=== PATIENT | female | born 1970 | race Caucasian/White ===

== ENCOUNTER 2018-05-08 14:05 | Inpatient (IN) | payer SELFPAY ==
[~2018-05-08] VITALS: Ht 157.5 cm; Wt 97.5 kg
[~2018-05-08 14:05] MED LIST: LISI-334 PO; OXYC1TAB7 PO
[2018-05-08] MEDS ORDERED: NITROGLYCERIN OINT 1 GM PACKET. TP ONE (14:30)
[2018-05-08] MEDS ORDERED: LABETALOL 20 MG/4 ML DISP.SYRIN. IVP ONE (14:30)
[2018-05-08] MEDS ORDERED: MORPHINE SULFATE 4 MG/ML VIAL. IV/SQ PRN (14:30)
--- NOTE | 2018-05-08 14:34 | PHYS DOC ---
Past Medical History Past Medical History: Hypertension, Hepatitis, Other Additional Past Medical Histor: HEP C, OCD,ADHD, ENCEPHALITIS, PLEURISEY Past Surgical History: Smoking: Cigarettes, 1 Pack Per Day Alcohol Use: None Drug Use: Marijuana Adult General Chief Complaint Chief Complaint: multiple medical complaints HPI HPI Patient is a 48-year-old female presents to the emergency department for evaluation. She states that for the past 3 days she has had pain all over her body, both arthralgias and myalgias. She admits to having some anterior chest discomfort which began yesterday, and has been persistent. The pain is described as an achy pain in the left side of her chest and is worse with deep breathing. She also reports some generalized abdominal pain worsen her upper abdomen. She states she has had a few episodes of vomiting and has not had a bowel movement in a few days. She has not had any bloody emesis, or bloody stools. She does feel somewhat more short of breath and baseline. She has not had any fevers or chills. She has a history of hypertension, but states that she does not have a primary care provider, does not take any medications. Other than the stated above, there are no alleviating or exacerbating factors to her symptoms. Review of Systems Review of Systems Constitutional: Denies fever or chills [] Eyes: Denies change in visual acuity, redness, or eye pain [] HENT: Denies nasal congestion or sore throat [] Respiratory: Denies cough or shortness of breath [] Cardiovascular: No additional information not addressed in HPI [] GI: Denies bloody stools or diarrhea [] : Denies dysuria or hematuria [] Musculoskeletal: Reports diffuse myalgias and arthralgias[] Integument: Denies rash or skin lesions [] Neurologic: Denies headache, focal weakness or sensory changes [] Endocrine: Denies polyuria or polydipsia [] All other systems were reviewed and found to be within normal limits, except as documented in this note. Current Medications Current Medications Current Medications Medications (Trade) Dose Ordered Sig/Curtis Start Time Stop Time Status Last Admin Dose Admin Info (CONTRAST GIVEN -- Rx MONITORING) 1 each PRN DAILY PRN 05/08/18 14:45 05/10/18 14:44 Iohexol (Omnipaque 300 Mg/ml) 75 ml 1X ONCE 05/08/18 14:45 05/08/18 14:46 DC 05/08/18 16:00 75 ML Labetalol HCl (Normodyne Iv Push) 20 mg 1X ONCE 05/08/18 14:30 05/08/18 14:31 DC 05/08/18 14:57 20 MG Morphine Sulfate (Morphine Sulfate) 4 mg PRN Q15MIN PRN 05/08/18 14:30 05/09/18 14:29 Nitroglycerin (Nitro-Bid Oint) 1 inch 1X ONCE 05/08/18 14:30 05/08/18 14:31 DC 05/08/18 14:56 1 INCH Allergies Allergies Allergies Coded Allergies Type Severity Reaction Last Updated Verified No Known Drug Allergies 06/14/17 No Physical Exam Physical Exam PHYSICAL EXAM: CONSTITUTIONAL: Well developed, well nourished HEAD: normocephalic, atraumatic EENT: PERRL, EOMI. Conjunctivae normal color, sclerae non-icteric; moist mucous membranes. NECK: Supple, non-tender; no meningismus. LUNGS: Lungs CTA, breathing even and unlabored. Normal air movement. HEART: Regular rate and rhythm, no murmur CHEST: No deformity; there is diffuse tenderness to palpation to the anterior chest wall. ABDOMEN: The abdomen is soft, mildly distended. Normal bowel sounds are present. There is diffuse tenderness to palpation to the entire abdomen, without focal tenderness, rebound, or guarding. no masses or bruits. EXTREM: Normal ROM; no deformity, no calf tenderness. Normal pulses palpable in all extremities. There is no pedal edema. SKIN: No rash; no diaphoresis NEURO: Alert; normal speech and cognition; CN's grossly intact; strength grossly intact without focal deficit. BACK: No CVA TTP. Current Patient Data Vital Signs Vital Signs Date Time Temp Pulse Resp B/P (MAP) Pulse Ox O2 Delivery O2 Flow Rate FiO2 05/08/18 14:57 112 216/95 05/08/18 14:11 99.6 20 98 Room Air 99.6 Lab Values Laboratory Tests Test 05/08/18 14:38 05/08/18 15:07 05/08/18 15:36 White Blood Count 7.2 x10^3/uL (4.0-11.0) Red Blood Count 4.29 x10^6/uL (3.50-5.40) Hemoglobin 11.0 g/dL (12.0-15.5) L Hematocrit 33.3 % (36.0-47.0) L Mean Corpuscular Volume 78 fL (79-100) L Mean Corpuscular Hemoglobin 26 pg (25-35) Mean Corpuscular Hemoglobin Concent 33 g/dL (31-37) Red Cell Distribution Width 16.1 % (11.5-14.5) H Platelet Count 202 x10^3/uL (140-400) Neutrophils (%) (Auto) 74 % (31-73) H Lymphocytes (%) (Auto) 17 % (24-48) L Monocytes (%) (Auto) 8 % (0-9) Eosinophils (%) (Auto) 1 % (0-3) Basophils (%) (Auto) 0 % (0-3) Neutrophils # (Auto) 5.3 x10^3uL (1.8-7.7) Lymphocytes # (Auto) 1.2 x10^3/uL (1.0-4.8) Monocytes # (Auto) 0.6 x10^3/uL (0.0-1.1) Eosinophils # (Auto) 0.1 x10^3/uL (0.0-0.7) Basophils # (Auto) 0.0 x10^3/uL (0.0-0.2) Sodium Level 136 mmol/L (136-145) Potassium Level 3.7 mmol/L (3.5-5.1) Chloride Level 98 mmol/L (98-107) Carbon Dioxide Level 28 mmol/L (21-32) Anion Gap 10 (6-14) Blood Urea Nitrogen 7 mg/dL (7-20) Creatinine 0.9 mg/dL (0.6-1.0) Estimated GFR (Cockcroft-Gault) 66.5 BUN/Creatinine Ratio 8 (6-20) Glucose Level 216 mg/dL (70-99) H Lactic Acid Level 2.1 mmol/L (0.4-2.0) H Calcium Level 8.7 mg/dL (8.5-10.1) Magnesium Level 1.7 mg/dL (1.8-2.4) L Total Bilirubin 0.5 mg/dL (0.2-1.0) Aspartate Amino Transferase (AST) 60 U/L (15-37) H Alanine Aminotransferase (ALT) 86 U/L (14-59) H Alkaline Phosphatase 115 U/L (46-116) Creatine Kinase 38 U/L (26-192) Creatine Kinase MB (Mass) 0.9 ng/mL (0.0-3.6) Creatine Kinase MB Relative Index 2.4 % (0-4) Troponin I Quantitative < 0.017 ng/mL (0.000-0.055) XT-Mwj-W-Type Natriuretic Peptide 187 pg/mL (0-124) H Total Protein 8.1 g/dL (6.4-8.2) Albumin 3.2 g/dL (3.4-5.0) L Albumin/Globulin Ratio 0.7 (1.0-1.7) L Lipase 138 U/L (73-393) Thyroid Stimulating Hormone (TSH) 1.349 uIU/mL (0.358-3.74) Free Thyroxine 1.04 ng/dL (0.76-1.46) Influenza Type A Antigen Negative (NEGATIVE) Influenza Type B Antigen Negative (NEGATIVE) Urine Collection Type Unknown Urine Color Yellow Urine Clarity Cloudy Urine pH 7.0 Urine Specific [place] >=1.030 Urine Protein Negative mg/dL (NEG-TRACE) Urine Glucose (UA) >=1000 mg/dL (NEG) Urine Ketones (Stick) Negative mg/dL (NEG) Urine Blood Negative (NEG) Urine Nitrite Negative (NEG) Urine Bilirubin Negative (NEG) Urine Urobilinogen Dipstick 1.0 mg/dL (0.2 mg/dL) Urine Leukocyte Esterase Negative (NEG) Urine RBC 0 /HPF (0-2) Urine WBC 0 /HPF (0-4) Urine Squamous Epithelial Cells Mod /LPF Urine Bacteria 0 /HPF (0-FEW) Urine Mucus Slight /LPF POC Urine HCG, Qualitative Hcg negative (Negative) Laboratory Tests 05/08/18 14:38 Laboratory Tests 05/08/18 14:38 EKG EKG [Sinus tachycardia rate of 117 beats for minute, normal axis, incomplete right bundle-branch block with otherwise normal intervals. There are no acute ischemic ST/T changes.] Radiology/Procedures Radiology/Procedures [PROCEDURE: PORTABLE CHEST 1V PORTABLE CHEST 1V INDICATION: CHEST PAIN, NECK PAIN, ABD PAIN X 3 DAYS. HX HYPERTENSION. COMPARISON: Chest radiograph dated 06/14/2017 FINDINGS: Low lung volume. Bibasilar heterogenous airspace opacities. Unchanged pulmonary vasculature. No pleural effusion or pneumothorax. The cardiomediastinal silhouette is normal. Mildly atherosclerotic thoracic aorta. No acute osseous abnormality. IMPRESSION: Bibasilar heterogenous airspace opacities could relate to atelectasis. Underlying infectious process or asymmetric edema would be difficult to exclude. ] Course & Med Decision Making Course & Med Decision Making Pertinent Labs and Imaging studies reviewed. (See chart for details) [4:10 PM:] The patient's condition remained stable. BP currently 172/88. I discussed the case with the hospitalist, who will admit the patient for further evaluation and treatment. CT imaging reports chest, angiogram due to pleuritic pain, as well as abdomen due to the diffuse abdominal tenderness and pain, are currently pending. Dragon Disclaimer Dragon Disclaimer This electronic medical record was generated, in whole or in part, using a voice recognition dictation system. Departure Departure Impression: Primary Impression: Chest pain Additional Impressions: Abdominal pain Hypertensive urgency Disposition: ADMITTED INPATIENT Admitting Physician: Xie. Kinney Condition: STABLE Referrals: NO PCP (PCP) Problem Qualifiers DEVON MCBRIDE MD May 08, 2018 14:34
[2018-05-08] MEDS ORDERED: CONTRAST GIVEN. MC PRN (14:45)
[2018-05-08] MEDS ORDERED: IOHEXOL 300 MG/ML 100ML VIAL. IV ONE (14:45)
[2018-05-08 14:55] LABS: BASO % 0 % (0-3); EOS # 0.1 x10^3/uL (0.0-0.7); EOS % 1 % (0-3); HEMATOCRIT 33.3 % (36.0-47.0); LYMPH # 1.2 x10^3/uL (1.0-4.8); LYMPH % 17 % (24-48); MEAN CORPUSCULAR HEMOGLOBIN 26 pg (25-35); MEAN CORPUSCULAR HGB CONC 33 g/dL (31-37); MEAN CORPUSCULAR VOLUME 78 fL (79-100); MONO # 0.6 x10^3/uL (0.0-1.1); MONO % 8 % (0-9); NEUT # 5.3 x10^3uL (1.8-7.7); NEUT % 74 % (31-73); PLATELET COUNT 202 x10^3/uL (140-400); RED BLOOD COUNT 4.29 x10^6/uL (3.50-5.40); RED CELL DISTRIBUTION WIDTH 16.1 % (11.5-14.5); WHITE BLOOD COUNT 7.2 x10^3/uL (4.0-11.0)
--- NOTE | 2018-05-08 14:56 | RAD ---
PORTABLE CHEST 1V INDICATION: CHEST PAIN, NECK PAIN, ABD PAIN X 3 DAYS. HX HYPERTENSION. COMPARISON: Chest radiograph dated 06/14/2017 FINDINGS: Low lung volume. Bibasilar heterogenous airspace opacities. Unchanged pulmonary vasculature. No pleural effusion or pneumothorax. The cardiomediastinal silhouette is normal. Mildly atherosclerotic thoracic aorta. No acute osseous abnormality. IMPRESSION: Bibasilar heterogenous airspace opacities could relate to atelectasis. Underlying infectious process or asymmetric edema would be difficult to exclude. Electronically signed by: Alfredo Bacon MD (05/08/2018 2:53 PM) [facility]
[2018-05-08 15:00] LABS: CALCIUM 8.7 mg/dL (8.5-10.1); CREATININE 0.9 mg/dL (0.6-1.0); GFR 66.5; POTASSIUM 3.7 mmol/L (3.5-5.1)
[2018-05-08 15:06] LABS: ALBUMIN 3.2 g/dL (3.4-5.0); ALBUMIN/GLOBULIN RATIO 0.7 (1.0-1.7); INFLUENZA A PATIENT NEGATIVE (NEGATIVE); INFLUENZA B PATIENT NEGATIVE (NEGATIVE); MAGNESIUM 1.7 mg/dL (1.8-2.4); TOTAL BILIRUBIN 0.5 mg/dL (0.2-1.0); TOTAL PROTEIN 8.1 g/dL (6.4-8.2)
--- NOTE | 2018-05-08 15:06 | EKG ---
[facility] [address] [place] [address] Test Date: 2018-05-08 Test Time: 14:12:45 Pat Name: LINDSEY MARX Department: Room: Gender: F Health Tech: : [id number] Requested By: DEVON MCBRIDE Order Number: [id number] Reading MD: Tarun Marrufo MD Measurements Intervals [place] Rate: 117 P: 54 MS: 120 QRS: 48 QRSD: 82 T: 51 QT: 306 QTc: 431 Interpretive Statements SINUS TACHYCARDIA Electronically Signed On 05-09-2018 12:26:52 CDT by Tarun Marrufo MD
[2018-05-08 15:13] LABS: FREE T4 1.04 ng/dL (0.76-1.46); THYROID STIM HORMONE (TSH) 1.349 uIU/mL (0.358-3.74)
[2018-05-08 16:00] LABS: BILIRUBIN,URINE NEGATIVE (NEG); CLARITY,URINE CLOUDY; COLOR,URINE YELLOW; NITRITE,URINE NEGATIVE (NEG); PROTEIN,URINE NEGATIVE (NEG-TRACE)
[2018-05-08 16:08] LABS: SQUAMOUS EPITHELIAL CELL,UR MOD /LPF
[2018-05-08 16:09] LABS: BACTERIA,URINE 0 /HPF (0-FEW); RBC,URINE 0 /HPF (0-2); WBC,URINE 0 /HPF (0-4)
[2018-05-08] MEDS ORDERED: DOCUSATE SODIUM 100 MG CAPSULE. PO PRN (16:30)
[2018-05-08] MEDS ORDERED: LABETALOL 20 MG/4 ML DISP.SYRIN. IVP PRN (16:30)
[2018-05-08] MEDS ORDERED: ACETAMINOPHEN 325 MG TABLET. PO PRN (16:30)
[2018-05-08] MEDS ORDERED: ONDANSETRON PF 4 MG/2 ML VIAL. IV PRN (16:30)
--- NOTE | 2018-05-08 16:41 | PDOC1 ---
History and Physical Date of Admission Date of Admission 05/08/18 Identification/Chief Complaint Chief Complaint abd pain, headache, chest pain with deep breath Source Source: Chart review, Patient History of Present Illness History of Present Illness HPI HPI Patient is a 48-year-old female presents to the emergency department for evaluation of multiple complains, mainly for abd pain and headache. She has no insurance, no pcp, not taking meds. She said she has been feeling diffuse abd pain for 3ds, mainly on left side, constant, severe, with myalgias, with N/V 3 times , non bloody or grover. also has BM daily with intermittent constipation and blood in the stool sometimes for 1 year. said has possible hep C, not treated. She also has severe headache, with neck pain, headache is on the top head, tension, no vision or hearing change, noise and light not bothering her. hard to walk 2/2 abd pain. no numbness or tinglings. She has bl lower chest pain, with deep breath. + cough, subjective fever, with sweats, + smoking. LA 2.[address] pending. Pt was here last year, for HTN urgency, not taking meds now. also had pleurisy at that time. BP >200. Past Medical History Cardiovascular: HTN Past Surgical History Past Surgical History: Family History Family History: Hypertension Social History Smoke: 1 pack per day ALCOHOL: social Drugs: Other Current Problem List Problem List Problems Medical Problems: (1) Abdominal pain Status: Acute (2) Chest pain Status: Acute Current Medications Current Medications Current Medications Medications (Trade) Dose Ordered Sig/Curtis Start Time Stop Time Status Last Admin Dose Admin Info (CONTRAST GIVEN -- Rx MONITORING) 1 each PRN DAILY PRN 05/08/18 14:45 05/10/18 14:44 Iohexol (Omnipaque 300 Mg/ml) 75 ml 1X ONCE 05/08/18 14:45 05/08/18 14:46 DC 05/08/18 16:00 75 ML Labetalol HCl (Normodyne Iv Push) 20 mg 1X ONCE 05/08/18 14:30 05/08/18 14:31 DC 05/08/18 14:57 20 MG Morphine Sulfate (Morphine Sulfate) 4 mg PRN Q15MIN PRN 05/08/18 14:30 05/09/18 14:29 Nitroglycerin (Nitro-Bid Oint) 1 inch 1X ONCE 05/08/18 14:30 05/08/18 14:31 DC 05/08/18 14:56 1 INCH Allergies Allergies Allergies Coded Allergies Type Severity Reaction Last Updated Verified No Known Drug Allergies 06/14/17 No ROS Review of System CONSTITUTIONAL: No fever or chills EYES: No recent changes SKIN: No rash or itching CARDIOVASCULAR: No chest pain, syncope, palpitations, or edema RESPIRATORY: No SOB or cough GASTROINTESTINAL: No nausea, vomiting or abdominal pain NEUROLOGICAL: No headaches or weakness ENDOCRINE: No cold or heat intolerance GENITOURINARY: No urgency or frequency of urination MUSCULOSKELETAL: No back pain or joint pain LYMPHATICS: No enlarged lymph nodes PSYCHIATRIC: No anxiety or depression Physical Exam Physical Exam GEN.: Alert and oriented. in pain. HEENT: Head is normocephalic, atraumatic NECK: Supple. LUNGS: Clear to auscultation. HEART: RRR, S1, S2 present. Peripheral pulses intact ABDOMEN: Soft, Positive bowel sounds. diffuse abd moderate tenderness , mainly at RUQ, LUQ. no guarding. EXTREMITIES: Without any cyanosis. bl leg some superficial dilated veins. and bruise. NEUROLOGIC: Normal speech, normal tone PSYCHIATRIC: Normal affect, normal mood. SKIN: No ulcerations Vitals Vitals Vital Signs Date Time Temp Pulse Resp B/P (MAP) Pulse Ox O2 Delivery O2 Flow Rate FiO2 05/08/18 14:57 112 216/95 05/08/18 14:11 99.6 20 98 Room Air 99.6 Labs Labs Laboratory Tests Test 05/08/18 14:38 05/08/18 15:07 05/08/18 15:36 White Blood Count 7.2 x10^3/uL (4.0-11.0) Red Blood Count 4.29 x10^6/uL (3.50-5.40) Hemoglobin 11.0 g/dL (12.0-15.5) Hematocrit 33.3 % (36.0-47.0) Mean Corpuscular Volume 78 fL (79-100) Mean Corpuscular Hemoglobin 26 pg (25-35) Mean Corpuscular Hemoglobin Concent 33 g/dL (31-37) Red Cell Distribution Width 16.1 % (11.5-14.5) Platelet Count 202 x10^3/uL (140-400) Neutrophils (%) (Auto) 74 % (31-73) Lymphocytes (%) (Auto) 17 % (24-48) Monocytes (%) (Auto) 8 % (0-9) Eosinophils (%) (Auto) 1 % (0-3) Basophils (%) (Auto) 0 % (0-3) Neutrophils # (Auto) 5.3 x10^3uL (1.8-7.7) Lymphocytes # (Auto) 1.2 x10^3/uL (1.0-4.8) Monocytes # (Auto) 0.6 x10^3/uL (0.0-1.1) Eosinophils # (Auto) 0.1 x10^3/uL (0.0-0.7) Basophils # (Auto) 0.0 x10^3/uL (0.0-0.2) Sodium Level 136 mmol/L (136-145) Potassium Level 3.7 mmol/L (3.5-5.1) Chloride Level 98 mmol/L (98-107) Carbon Dioxide Level 28 mmol/L (21-32) Anion Gap 10 (6-14) Blood Urea Nitrogen 7 mg/dL (7-20) Creatinine 0.9 mg/dL (0.6-1.0) Estimated GFR (Cockcroft-Gault) 66.5 BUN/Creatinine Ratio 8 (6-20) Glucose Level 216 mg/dL (70-99) Lactic Acid Level 2.1 mmol/L (0.4-2.0) Calcium Level 8.7 mg/dL (8.5-10.1) Magnesium Level 1.7 mg/dL (1.8-2.4) Total Bilirubin 0.5 mg/dL (0.2-1.0) Aspartate Amino Transf (AST/SGOT) 60 U/L (15-37) Alanine Aminotransferase (ALT/SGPT) 86 U/L (14-59) Alkaline Phosphatase 115 U/L (46-116) Creatine Kinase 38 U/L (26-192) Creatine Kinase MB (Mass) 0.9 ng/mL (0.0-3.6) Creatine Kinase MB Relative Index 2.4 % (0-4) Troponin I Quantitative < 0.017 ng/mL (0.000-0.055) IS-Scz-W-Type Natriuretic Peptide 187 pg/mL (0-124) Total Protein 8.1 g/dL (6.4-8.2) Albumin 3.2 g/dL (3.4-5.0) Albumin/Globulin Ratio 0.7 (1.0-1.7) Lipase 138 U/L (73-393) Thyroid Stimulating Hormone (TSH) 1.349 uIU/mL (0.358-3.74) Free Thyroxine 1.04 ng/dL (0.76-1.46) Influenza Type A Antigen Negative (NEGATIVE) Influenza Type B Antigen Negative (NEGATIVE) Urine Collection Type Unknown Urine Color Yellow Urine Clarity Cloudy Urine pH 7.0 Urine Specific [place] >=1.030 Urine Protein Negative mg/dL (NEG-TRACE) Urine Glucose (UA) >=1000 mg/dL (NEG) Urine Ketones (Stick) Negative mg/dL (NEG) Urine Blood Negative (NEG) Urine Nitrite Negative (NEG) Urine Bilirubin Negative (NEG) Urine Urobilinogen Dipstick 1.0 mg/dL (0.2 mg/dL) Urine Leukocyte Esterase Negative (NEG) Urine RBC 0 /HPF (0-2) Urine WBC 0 /HPF (0-4) Urine Squamous Epithelial Cells Mod /LPF Urine Bacteria 0 /HPF (0-FEW) Urine Mucus Slight /LPF Bedside Urine HCG, Qualitative Hcg negative (Negative) Laboratory Tests Test 05/08/18 14:38 05/08/18 15:07 05/08/18 15:36 White Blood Count 7.2 x10^3/uL (4.0-11.0) Red Blood Count 4.29 x10^6/uL (3.50-5.40) Hemoglobin 11.0 g/dL (12.0-15.5) Hematocrit 33.3 % (36.0-47.0) Mean Corpuscular Volume 78 fL (79-100) Mean Corpuscular Hemoglobin 26 pg (25-35) Mean Corpuscular Hemoglobin Concent 33 g/dL (31-37) Red Cell Distribution Width 16.1 % (11.5-14.5) Platelet Count 202 x10^3/uL (140-400) Neutrophils (%) (Auto) 74 % (31-73) Lymphocytes (%) (Auto) 17 % (24-48) Monocytes (%) (Auto) 8 % (0-9) Eosinophils (%) (Auto) 1 % (0-3) Basophils (%) (Auto) 0 % (0-3) Neutrophils # (Auto) 5.3 x10^3uL (1.8-7.7) Lymphocytes # (Auto) 1.2 x10^3/uL (1.0-4.8) Monocytes # (Auto) 0.6 x10^3/uL (0.0-1.1) Eosinophils # (Auto) 0.1 x10^3/uL (0.0-0.7) Basophils # (Auto) 0.0 x10^3/uL (0.0-0.2) Sodium Level 136 mmol/L (136-145) Potassium Level 3.7 mmol/L (3.5-5.1) Chloride Level 98 mmol/L (98-107) Carbon Dioxide Level 28 mmol/L (21-32) Anion Gap 10 (6-14) Blood Urea Nitrogen 7 mg/dL (7-20) Creatinine 0.9 mg/dL (0.6-1.0) Estimated GFR (Cockcroft-Gault) 66.5 BUN/Creatinine Ratio 8 (6-20) Glucose Level 216 mg/dL (70-99) Lactic Acid Level 2.1 mmol/L (0.4-2.0) Calcium Level 8.7 mg/dL (8.5-10.1) Magnesium Level 1.7 mg/dL (1.8-2.4) Total Bilirubin 0.5 mg/dL (0.2-1.0) Aspartate Amino Transf (AST/SGOT) 60 U/L (15-37) Alanine Aminotransferase (ALT/SGPT) 86 U/L (14-59) Alkaline Phosphatase 115 U/L (46-116) Creatine Kinase 38 U/L (26-192) Creatine Kinase MB (Mass) 0.9 ng/mL (0.0-3.6) Creatine Kinase MB Relative Index 2.4 % (0-4) Troponin I Quantitative < 0.017 ng/mL (0.000-0.055) EF-Orm-G-Type Natriuretic Peptide 187 pg/mL (0-124) Total Protein 8.1 g/dL (6.4-8.2) Albumin 3.2 g/dL (3.4-5.0) Albumin/Globulin Ratio 0.7 (1.0-1.7) Lipase 138 U/L (73-393) Thyroid Stimulating Hormone (TSH) 1.349 uIU/mL (0.358-3.74) Free Thyroxine 1.04 ng/dL (0.76-1.46) Influenza Type A Antigen Negative (NEGATIVE) Influenza Type B Antigen Negative (NEGATIVE) Urine Collection Type Unknown Urine Color Yellow Urine Clarity Cloudy Urine pH 7.0 Urine Specific [place] >=1.030 Urine Protein Negative mg/dL (NEG-TRACE) Urine Glucose (UA) >=1000 mg/dL (NEG) Urine Ketones (Stick) Negative mg/dL (NEG) Urine Blood Negative (NEG) Urine Nitrite Negative (NEG) Urine Bilirubin Negative (NEG) Urine Urobilinogen Dipstick 1.0 mg/dL (0.2 mg/dL) Urine Leukocyte Esterase Negative (NEG) Urine RBC 0 /HPF (0-2) Urine WBC 0 /HPF (0-4) Urine Squamous Epithelial Cells Mod /LPF Urine Bacteria 0 /HPF (0-FEW) Urine Mucus Slight /LPF Bedside Urine HCG, Qualitative Hcg negative (Negative) VTE Prophylaxis Ordered VTE Prophylaxis Devices: Yes VTE Pharmacological Prophylaxi: Yes Assessment/Plan Assessment/Plan abd pain, not clear etiology yet, CT pending bl chest pain 2/2 pleurisy likely headache, 2/2 HTN urgency likely HTN urgency chronic bloody stool as per pt with mild anemia high LA h/o hep C wo treatemtn OCD ADHD H/O encephalitis tobaccoism h/o drug abuse with marijuana mild malnutrition plan: pulm, gi , card consult abd ct pending, Chest cta pending clear liquid diet for now dvt, gi ppx check drug tox, hepatitis panel, anemia panel check anemia panel nicotine patch prn duoneb, abluterol prn head ct FRANSISCO DAY MD May 08, 2018 16:41
[2018-05-08] MEDS ORDERED: MAGNESIUM SULFATE 2GM 50 ML IV ONE (16:45)
[2018-05-08] MEDS ORDERED: NICOTINE 21MG PATCH. TD PRN (16:45)
[2018-05-08] MEDS ORDERED: ALBUTEROL SULFATE 2.5 MG/3 ML NEBU. NEB PRN (16:45)
[2018-05-08 16:54] LABS: AMPHETAMINE/METHAMPHETAMINE POS (NEG); BARBITURATES NEG (NEG); BENZODIAZEPINES NEG (NEG); CANNABINOIDS NEG (NEG); COCAINE NEG (NEG); METHADONE NEG (NEG); OPIATES NEG (NEG); PHENCYCLIDINE NEG (NEG)
--- NOTE | 2018-05-08 16:58 | RAD ---
CTA CHEST, PE PROTOCOL, CT ABDOMEN AND PELVIS WITH CONTRAST Clinical Indication: Chest pain, shortness of air, abdominal pain COMPARISON: CT abdomen and pelvis dated 06/14/2017, chest radiograph dated 06/14/2017 TECHNIQUE: Multiple contiguous axial images were obtained throughout the chest, abdomen, and pelvis with the use of IV contrast. Chest images were obtained following PE protocol. Coronal and sagittal MIPS reconstructions were performed. Coronal and sagittal reconstructions of the abdomen and pelvis CT were also performed. 75 mL Omni 300 was administered. CTA Chest Findings: Limited evaluation of the distal pulmonary arterial system due to suboptimal distal contrast opacification. No evidence of central, lobar, or segmental pulmonary embolism. The thyroid is symmetric. Calcified mediastinal and right hilar lymph nodes related to remote granulomatous disease. There is no axillary, mediastinal, or hilar adenopathy. The thoracic aorta diameter is normal. The cardiac size is normal. There is no pericardial effusion. Right lower lobe linear opacities likely related to atelectasis or scarring. There is no suspicious pulmonary nodule. There is no focal consolidation. No pleural effusion is observed. There is no pneumothorax. Small tracheal diverticulum. The central airways are patent. CT Abdomen findings: The liver is enlarged measuring 19.2 cm. There again may be a microlobulated contour of the liver. The liver is otherwise normal. Contracted gallbladder. No radiopaque gallstone or pericholecystic fluid. The spleen is enlarged measuring 14.5 cm. The pancreas is normal in appearance. The adrenal glands are normal in appearance. The kidneys are unremarkable. There is no significant mesenteric or retroperitoneal adenopathy identified. There is no evidence of free intraperitoneal fluid or pneumoperitoneum. Mild colonic diverticulosis without evidence of diverticulitis. Visualized portions of the bowel are otherwise grossly unremarkable. Normal appendix. Mild atherosclerosis of the abdominal aorta and its branches. CT Pelvis findings: The bladder is underdistended limiting evaluation for wall thickening. Fluid within the endometrial canal. 2.7 x 2.4 cm left ovarian cyst. There is no significant pelvic ascites. No significant iliac or inguinal adenopathy is identified. No acute osseous abnormality. Mild multilevel degenerative changes of the visualized spine. IMPRESSION: 1. Limited evaluation of the distal pulmonary arterial system due to suboptimal distal contrast opacification. No evidence of central, lobar, or segmental pulmonary embolism. 2. No acute intrathoracic, intra-abdominal, or intrapelvic process identified. 3. Hepatosplenomegaly. Possible microlobular contour of the liver which can be seen with cirrhosis, similar to prior exam. 4. Fluid within the endometrial canal and 2.7 x 2.4 cm left ovarian cyst are most likely physiologic given patient's age. PQRS Compliance Statement: One or more of the following individualized dose reduction techniques were utilized for this examination: 1. Automated exposure control 2. Adjustment of the mA and/or kV according to patient size 3. Use of iterative reconstruction technique Electronically signed by: Alfredo Bacon MD (05/08/2018 4:55 PM) [facility]
[2018-05-08] MEDS: IV NORMAL SALINE 1000ML BAG 1,000 ML IV SCH (17:05)
--- NOTE | 2018-05-08 17:59 | RAD ---
CT HEAD WO CONTRAST Date: 05/08/2018 4:41 PM Clinical Indication: HEADACHE Comparison: CT head dated 06/14/2017. Technique: 5 mm axial tomographic images were obtained of the head without contrast. These were viewed on brain and bone windows. CT HEAD FINDINGS: The brain parenchyma is normal in attenuation. No intra- or extra-axial mass or fluid collection. No acute hemorrhage. The ventricles are normal in size, shape, and morphology. The elder-white matter junction is normal. The basilar cisterns are patent. Small bilateral maxillary sinus mucus retention cysts. The nasal septum is deviated to the right. The orbits are normal. The globes are intact. The mastoid air cells are clear. No aggressive osseous lesion or fracture. Impression: No acute intracranial process. PQRS Compliance Statement: One or more of the following individualized dose reduction techniques were utilized for this examination: 1. Automated exposure control 2. Adjustment of the mA and/or kV according to patient size 3. Use of iterative reconstruction technique Electronically signed by: Alfredo Bacon MD (05/08/2018 5:55 PM) [facility]
[2018-05-08] MEDS: NICOTINE 21MG PATCH. TD SCH (18:30)
[2018-05-08 19:00] VITALS: BP 162/87
[2018-05-08] MEDS: IPRATRPIUM/ALBUTEROL 0.5/2.5MG 3 ML NEBU. NEB SCH (19:55)
[2018-05-08] MEDS: amLODIPine BESYLATE 10 MG TABLET PO SCH (21:03)
[2018-05-08] MEDS: LISINOPRIL 20 MG TABLET PO SCH (21:04)
[2018-05-08] MEDS: ENOXAPARIN 40 MG/0.4 ML SYRINGE. SQ SCH (21:12)
[2018-05-08 23:00] VITALS: BP 160/93
[2018-05-08] MEDS: traMADol 50 MG TABLET PO PRN (23:37)
[2018-05-09] MEDS: MORPHINE SULFATE 2 MG/ML VIAL. IV PRN ×2 (01:33→19:36)
[2018-05-09 03:00] VITALS: BP 162/84
[2018-05-09] MEDS: IV NORMAL SALINE 1000ML BAG 1,000 ML IV SCH ×3 (03:33→22:49)
[2018-05-09] MEDS: fentaNYL PF VIAL 100 MCG/2 ML VIAL IV PRN ×9 (03:33→22:42)
[2018-05-09 03:57] LABS: BASO # 0.1 x10^3/uL (0.0-0.2); BASO % 1 % (0-3); EOS # 0.1 x10^3/uL (0.0-0.7); EOS % 1 % (0-3); HEMATOCRIT 34.5 % (36.0-47.0); HEMOGLOBIN 11.3 g/dL (12.0-15.5); LYMPH # 1.6 x10^3/uL (1.0-4.8); LYMPH % 17 % (24-48); MEAN CORPUSCULAR HEMOGLOBIN 26 pg (25-35); MEAN CORPUSCULAR HGB CONC 33 g/dL (31-37); MEAN CORPUSCULAR VOLUME 78 fL (79-100); MONO % 10 % (0-9); NEUT % 71 % (31-73); PLATELET COUNT 227 x10^3/uL (140-400); RED BLOOD COUNT 4.42 x10^6/uL (3.50-5.40); RED CELL DISTRIBUTION WIDTH 16.8 % (11.5-14.5); WHITE BLOOD COUNT 9.8 x10^3/uL (4.0-11.0)
[2018-05-09 04:09] LABS: CALCIUM 8.4 mg/dL (8.5-10.1); CREATININE 0.8 mg/dL (0.6-1.0); GFR 76.2; POTASSIUM 4.2 mmol/L (3.5-5.1)
[2018-05-09 07:00] VITALS: BP 135/73
[2018-05-09] MEDS: IPRATRPIUM/ALBUTEROL 0.5/2.5MG 3 ML NEBU. NEB SCH ×4 (07:15→19:33)
[2018-05-09] MEDS: PANTOPRAZOLE 40 MG TABLET.DR. PO SCH (07:36)
[2018-05-09] MEDS: amLODIPine BESYLATE 10 MG TABLET PO SCH (09:10)
[2018-05-09] MEDS: LISINOPRIL 20 MG TABLET PO SCH (09:10)
[2018-05-09] MEDS: NICOTINE 21MG PATCH. TD SCH (09:11)
--- NOTE | 2018-05-09 10:17 | PDOC2 ---
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 Douglas SOURCE Source: Chart review, Patient HISTORY OF PRESENT ILLNESS HISTORY OF PRESENT ILLNESS This is a 48 yo female who presented with complaints of abdominal pain. Presented for the last 3 days. Progressively worsening. Radiating to her right chest. C/o whole body aches. Chest pain describes as sharp. Worsened with deep breath. No associated SOA, dizziness, diaphoresis, or palpitations. Have had some mild nausea/vomiting over the last couple of days. Has a history of hypertension. Unfortunately, patient is uninsured and has limited financial means. Was previous on antiHTN therapy, but ran out and has not been seen since. Is presently residing with friend. Of note, is current smoker and UDS + for methamphetamines. PAST MEDICAL HISTORY Cardiovascular: HTN Pulmonary: No pertinent hx GI: GERD Heme/Onc: No pertinent hx Hepatobiliary: No pertinent hx Psych: Anxiety, Depression Musculoskeletal: Osteoarthritis Rheumatologic: No pertinent hx Infectious disease: No pertinent hx ENT: No pertinent hx Renal/: No pertinent hx Endocrine: No pertinent hx Dermatology: No pertinent hx PAST SURGICAL HISTORY Past Surgical History: No pertinent history FAMILY HISTORY Family History: Diabetes, Hypertension SOCIAL HISTORY Smoke: 1 pack per day ALCOHOL: none Drugs: Marijuana, Crystal meth Lives: Friends CURRENT MEDICATIONS CURRENT MEDICATIONS Current Medications Medications (Trade) Dose Ordered Sig/Curtis Route PRN Reason Start Time Stop Time Status Last Admin Dose Admin Morphine Sulfate (Morphine Sulfate) 4 mg PRN Q15MIN PRN IV/SQ PAIN GREATER THAN 3/10 05/08/18 14:30 05/09/18 14:29 05/08/18 17:11 Labetalol HCl (Normodyne Iv Push) 20 mg 1X ONCE IVP 05/08/18 14:30 05/08/18 14:31 DC 05/08/18 14:57 Nitroglycerin (Nitro-Bid Oint) 1 inch 1X ONCE TP 05/08/18 14:30 05/08/18 14:31 DC 05/08/18 14:56 Iohexol (Omnipaque 300 Mg/ml) 75 ml 1X ONCE IV 05/08/18 14:45 05/08/18 14:46 DC 05/08/18 16:00 Morphine Sulfate (Morphine Sulfate) 2 mg PRN Q2HR PRN IV MODERATE TO SEVERE PAIN 05/08/18 16:30 05/09/18 01:33 Tramadol HCl (Ultram) 50 mg PRN Q6HRS PRN PO MILD TO MODERATE PAIN 05/08/18 16:30 05/08/18 23:37 Lisinopril (Prinivil) 40 mg DAILY PO 05/08/18 17:00 05/09/18 09:10 Amlodipine Besylate (Norvasc) 10 mg DAILY PO 05/08/18 17:00 05/09/18 09:10 Sodium Chloride 1,000 ml @ 100 mls/hr Q10H IV 05/08/18 16:30 05/09/18 03:33 Magnesium Sulfate 50 ml @ 25 mls/hr 1X ONCE IV 05/08/18 16:45 05/08/18 18:44 DC 05/08/18 21:05 Pantoprazole Sodium (Protonix) 40 mg DAILYAC PO 05/09/18 07:30 05/09/18 07:36 Enoxaparin Sodium (Lovenox 40mg Syringe) 40 mg Q24H SQ 05/08/18 21:00 05/08/18 21:12 Albuterol/ Ipratropium (Duoneb) 3 ml RTQID NEB 05/08/18 16:30 05/09/18 07:15 Guaifenesin (Mucinex) 600 mg BID PO 05/08/18 21:00 05/09/18 09:09 Nicotine (Nicoderm Cq 21mg) 1 patch DAILY TD 05/08/18 18:30 05/09/18 09:11 Fentanyl Citrate (Fentanyl 2ml Vial) 50 mcg PRN Q2HR PRN IV PAIN 05/09/18 02:30 05/09/18 07:41 ALLERGIES ALLERGIES: Coded Allergies: No Known Drug Allergies (Unverified , 06/14/17) ROS Review of System 14 point ROS conducted with pertinent positives noted above in HPI. PHYSICAL EXAM General: Alert, Oriented X3, Cooperative, mild distress HEENT: Atraumatic, Mucous membr. moist/pink Lungs: Clear to auscultation, Normal air movement Heart: Regular rate, Normal S1, Normal S2, Other (2/6 systolic murmur ) Abdomen: Other (distended. tenderness upon palpation) Extremities: No edema, Normal pulses Skin: No significant lesion Neuro: Normal speech, Sensation intact Psych/Mental Status: Mental status NL, Mood NL MUSCULOSKELETAL: Osteoarthritic changes both hands VITALS VITALS Vital Signs Date Time Temp Pulse Resp B/P (MAP) Pulse Ox O2 Delivery O2 Flow Rate FiO2 05/09/18 09:10 91 135/73 05/09/18 08:11 18 Room Air 05/09/18 07:15 92 05/09/18 03:00 98.7 98.7 LABS Lab: Laboratory Tests Test 05/08/18 14:38 05/08/18 15:07 05/08/18 15:36 05/08/18 22:00 White Blood Count 7.2 x10^3/uL (4.0-11.0) Red Blood Count 4.29 x10^6/uL (3.50-5.40) Hemoglobin 11.0 g/dL (12.0-15.5) Hematocrit 33.3 % (36.0-47.0) Mean Corpuscular Volume 78 fL (79-100) Mean Corpuscular Hemoglobin 26 pg (25-35) Mean Corpuscular Hemoglobin Concent 33 g/dL (31-37) Red Cell Distribution Width 16.1 % (11.5-14.5) Platelet Count 202 x10^3/uL (140-400) Neutrophils (%) (Auto) 74 % (31-73) Lymphocytes (%) (Auto) 17 % (24-48) Monocytes (%) (Auto) 8 % (0-9) Eosinophils (%) (Auto) 1 % (0-3) Basophils (%) (Auto) 0 % (0-3) Neutrophils # (Auto) 5.3 x10^3uL (1.8-7.7) Lymphocytes # (Auto) 1.2 x10^3/uL (1.0-4.8) Monocytes # (Auto) 0.6 x10^3/uL (0.0-1.1) Eosinophils # (Auto) 0.1 x10^3/uL (0.0-0.7) Basophils # (Auto) 0.0 x10^3/uL (0.0-0.2) Sodium Level 136 mmol/L (136-145) Potassium Level 3.7 mmol/L (3.5-5.1) Chloride Level 98 mmol/L (98-107) Carbon Dioxide Level 28 mmol/L (21-32) Anion Gap 10 (6-14) Blood Urea Nitrogen 7 mg/dL (7-20) Creatinine 0.9 mg/dL (0.6-1.0) Estimated GFR (Cockcroft-Gault) 66.5 BUN/Creatinine Ratio 8 (6-20) Glucose Level 216 mg/dL (70-99) Lactic Acid Level 2.1 mmol/L (0.4-2.0) Calcium Level 8.7 mg/dL (8.5-10.1) Magnesium Level 1.7 mg/dL (1.8-2.4) Total Bilirubin 0.5 mg/dL (0.2-1.0) Aspartate Amino Transf (AST/SGOT) 60 U/L (15-37) Alanine Aminotransferase (ALT/SGPT) 86 U/L (14-59) Alkaline Phosphatase 115 U/L (46-116) Creatine Kinase 38 U/L (26-192) Creatine Kinase MB (Mass) 0.9 ng/mL (0.0-3.6) Creatine Kinase MB Relative Index 2.4 % (0-4) Troponin I Quantitative < 0.017 ng/mL (0.000-0.055) < 0.017 ng/mL (0.000-0.055) [id number]-Ysv-[id number]-Type Natriuretic Peptide 187 pg/mL (0-124) Total Protein 8.1 g/dL (6.4-8.2) Albumin 3.2 g/dL (3.4-5.0) Albumin/Globulin Ratio 0.7 (1.0-1.7) Lipase 138 U/L (73-393) Thyroid Stimulating Hormone (TSH) 1.349 uIU/mL (0.358-3.74) Free Thyroxine 1.04 ng/dL (0.76-1.46) Influenza Type A Antigen Negative (NEGATIVE) Influenza Type B Antigen Negative (NEGATIVE) Urine Collection Type Unknown Urine Color Yellow Urine Clarity Cloudy Urine pH 7.0 Urine Specific [place] >=1.030 Urine Protein Negative mg/dL (NEG-TRACE) Urine Glucose (UA) >=1000 mg/dL (NEG) Urine Ketones (Stick) Negative mg/dL (NEG) Urine Blood Negative (NEG) Urine Nitrite Negative (NEG) Urine Bilirubin Negative (NEG) Urine Urobilinogen Dipstick 1.0 mg/dL (0.2 mg/dL) Urine Leukocyte Esterase Negative (NEG) Urine RBC 0 /HPF (0-2) Urine WBC 0 /HPF (0-4) Urine Squamous Epithelial Cells Mod /LPF Urine Bacteria 0 /HPF (0-FEW) Urine Mucus Slight /LPF Urine Opiates Screen Neg (NEG) Urine Methadone Screen Neg (NEG) Urine Barbiturates Neg (NEG) Urine Phencyclidine Screen Neg (NEG) Urine Amphetamine/Methamphetamine Pos (NEG) Urine Benzodiazepines Screen Neg (NEG) Urine Cocaine Screen Neg (NEG) Urine Cannabinoids Screen Neg (NEG) Urine Ethyl Alcohol Neg (NEG) Bedside Urine HCG, Qualitative Hcg negative (Negative) Test 05/09/18 03:20 White Blood Count 9.8 x10^3/uL (4.0-11.0) Red Blood Count 4.42 x10^6/uL (3.50-5.40) Hemoglobin 11.3 g/dL (12.0-15.5) Hematocrit 34.5 % (36.0-47.0) Mean Corpuscular Volume 78 fL (79-100) Mean Corpuscular Hemoglobin 26 pg (25-35) Mean Corpuscular Hemoglobin Concent 33 g/dL (31-37) Red Cell Distribution Width 16.8 % (11.5-14.5) Platelet Count 227 x10^3/uL (140-400) Neutrophils (%) (Auto) 71 % (31-73) Lymphocytes (%) (Auto) 17 % (24-48) Monocytes (%) (Auto) 10 % (0-9) Eosinophils (%) (Auto) 1 % (0-3) Basophils (%) (Auto) 1 % (0-3) Neutrophils # (Auto) 7.0 x10^3uL (1.8-7.7) Lymphocytes # (Auto) 1.6 x10^3/uL (1.0-4.8) Monocytes # (Auto) 1.0 x10^3/uL (0.0-1.1) Eosinophils # (Auto) 0.1 x10^3/uL (0.0-0.7) Basophils # (Auto) 0.1 x10^3/uL (0.0-0.2) Sodium Level 133 mmol/L (136-145) Potassium Level 4.2 mmol/L (3.5-5.1) Chloride Level 98 mmol/L (98-107) Carbon Dioxide Level 29 mmol/L (21-32) Anion Gap 6 (6-14) Blood Urea Nitrogen 5 mg/dL (7-20) Creatinine 0.8 mg/dL (0.6-1.0) Estimated GFR (Cockcroft-Gault) 76.2 Glucose Level 180 mg/dL (70-99) Calcium Level 8.4 mg/dL (8.5-10.1) Iron Level 45 ug/dL (50-170) Total Iron Binding Capacity 496 ug/dL (250-450) Iron Saturation 9 % (15-34) Ferritin 19 ng/mL (8-252) Vitamin B12 Level 631 pg/mL (247-911) ECHOCARDIOGRAM ECHOCARDIOGRAM <Conclusion> Left ventricle systolic function appears hyperdynamic. The Ejection Fraction is >70%. There is normal LV segmental wall motion. DATE: 06/17/1748 ASSESSMENT/PLAN ASSESSMENT/PLAN 1. Chest pain, atypical. Most probably pleuritic in nature as it is worsened with deep breathing 2. Malignant hypertension, POA. Much better controlled with addition of Lisinopril and Norvasc. 3. Abdominal pain/cirrhosis/ Hx of Hep C; mild transaminitis. as per GI 4. Depression/anxiety 5. Hypomagnesemia; replaced. 6. Tobaccoism 7. Substance abuse; UDS + meth Recommendations Check lipids Obtain echo to asses LV function/presence of WMA Add MG Discussed/encouraged cessation of tobacco and drugs. Supportive care. If echo WNL, may discharge from a CV standpoint. ALETA RICHTER MD 05/09/18 1534: CARDIAC CONSULT ASSESSMENT/PLAN ASSESSMENT/PLAN Patient seen and examined. Agree with CARD BOXER's assessment and plan. Chest pain with atypical features Myocardial infarction has been ruled out Blood pressure much better controlled since admission Check 2-D echo to assess LV function and rule out wall motion abnormalities We will consider ischemic workup as an outpatient Thank you for your consultation CARRINGTON GARDUNO APRN May 09, 2018 10:17 ALETA RICHTER MD May 09, 2018 15:34
--- NOTE | 2018-05-09 10:49 | PDOC2 ---
GI CONSULT Reason For Consult: Abdominal pain, cirrhosis, h/o hep C HPI: HPI: Pt is a 48 y/o female who presented to the ER with complaints of abdominal pain as well as neck/back pain and headache. She states her symptoms started 4 days ago. She reports severe abdominal pain, which was originally left-sided and is now more right-sided. She also reports generalized abdominal bloating and pressure. She reports associated nausea and vomiting as well, but has not vomited today. Her pain is worse with breathing and coughing. She has previously been seen for pleurisy and states that her current symptoms seem similar to this. She reports a h/o hepatitis C as well (former h/o IVDU), and states she has not had treatment for this. She denies a previous EGD or colonoscopy. She denies previous gallbladder or pancreas history. Pt with h/o HTN urgency in the past, and was also hypertensive in ER. PMH: PMH: HTN, Hep C, GERD, diiverticulosis, cirrhosis, encephalitis, depression/anxiety, FH: Family History: Cancer Social History: Smoke: 1 pack per day ALCOHOL: social Drugs: Other ROS: GEN: Denies fevers, chills, sweats HEENT: Denies blurred vision, sore throat CV: Denies chest pain RESP: Denies shortness of air, cough GI: Per HPI : Denies hematuria, dysuria ENDO: Denies weight changes NEURO: Denies confusion, dizziness MSK: Denies weakness, joint pain/swelling SKIN: Denies jaundice, pruritus Vitals: Vitals: Vital Signs Date Time Temp Pulse Resp B/P (MAP) Pulse Ox O2 Delivery O2 Flow Rate FiO2 05/09/18 10:29 20 Room Air 05/09/18 09:10 91 135/73 05/09/18 07:15 92 05/09/18 07:00 98.9 98.9 Labs: Labs: Laboratory Tests Test 05/08/18 14:38 05/08/18 15:07 05/08/18 15:36 05/08/18 22:00 White Blood Count 7.2 x10^3/uL (4.0-11.0) Red Blood Count 4.29 x10^6/uL (3.50-5.40) Hemoglobin 11.0 g/dL (12.0-15.5) Hematocrit 33.3 % (36.0-47.0) Mean Corpuscular Volume 78 fL (79-100) Mean Corpuscular Hemoglobin 26 pg (25-35) Mean Corpuscular Hemoglobin Concent 33 g/dL (31-37) Red Cell Distribution Width 16.1 % (11.5-14.5) Platelet Count 202 x10^3/uL (140-400) Neutrophils (%) (Auto) 74 % (31-73) Lymphocytes (%) (Auto) 17 % (24-48) Monocytes (%) (Auto) 8 % (0-9) Eosinophils (%) (Auto) 1 % (0-3) Basophils (%) (Auto) 0 % (0-3) Neutrophils # (Auto) 5.3 x10^3uL (1.8-7.7) Lymphocytes # (Auto) 1.2 x10^3/uL (1.0-4.8) Monocytes # (Auto) 0.6 x10^3/uL (0.0-1.1) Eosinophils # (Auto) 0.1 x10^3/uL (0.0-0.7) Basophils # (Auto) 0.0 x10^3/uL (0.0-0.2) Sodium Level 136 mmol/L (136-145) Potassium Level 3.7 mmol/L (3.5-5.1) Chloride Level 98 mmol/L (98-107) Carbon Dioxide Level 28 mmol/L (21-32) Anion Gap 10 (6-14) Blood Urea Nitrogen 7 mg/dL (7-20) Creatinine 0.9 mg/dL (0.6-1.0) Estimated GFR (Cockcroft-Gault) 66.5 BUN/Creatinine Ratio 8 (6-20) Glucose Level 216 mg/dL (70-99) Lactic Acid Level 2.1 mmol/L (0.4-2.0) Calcium Level 8.7 mg/dL (8.5-10.1) Magnesium Level 1.7 mg/dL (1.8-2.4) Total Bilirubin 0.5 mg/dL (0.2-1.0) Aspartate Amino Transf (AST/SGOT) 60 U/L (15-37) Alanine Aminotransferase (ALT/SGPT) 86 U/L (14-59) Alkaline Phosphatase 115 U/L (46-116) Creatine Kinase 38 U/L (26-192) Creatine Kinase MB (Mass) 0.9 ng/mL (0.0-3.6) Creatine Kinase MB Relative Index 2.4 % (0-4) Troponin I Quantitative < 0.017 ng/mL (0.000-0.055) < 0.017 ng/mL (0.000-0.055) PV-Naj-B-Type Natriuretic Peptide 187 pg/mL (0-124) Total Protein 8.1 g/dL (6.4-8.2) Albumin 3.2 g/dL (3.4-5.0) Albumin/Globulin Ratio 0.7 (1.0-1.7) Lipase 138 U/L (73-393) Thyroid Stimulating Hormone (TSH) 1.349 uIU/mL (0.358-3.74) Free Thyroxine 1.04 ng/dL (0.76-1.46) Influenza Type A Antigen Negative (NEGATIVE) Influenza Type B Antigen Negative (NEGATIVE) Urine Collection Type Unknown Urine Color Yellow Urine Clarity Cloudy Urine pH 7.0 Urine Specific [place] >=1.030 Urine Protein Negative mg/dL (NEG-TRACE) Urine Glucose (UA) >=1000 mg/dL (NEG) Urine Ketones (Stick) Negative mg/dL (NEG) Urine Blood Negative (NEG) Urine Nitrite Negative (NEG) Urine Bilirubin Negative (NEG) Urine Urobilinogen Dipstick 1.0 mg/dL (0.2 mg/dL) Urine Leukocyte Esterase Negative (NEG) Urine RBC 0 /HPF (0-2) Urine WBC 0 /HPF (0-4) Urine Squamous Epithelial Cells Mod /LPF Urine Bacteria 0 /HPF (0-FEW) Urine Mucus Slight /LPF Urine Opiates Screen Neg (NEG) Urine Methadone Screen Neg (NEG) Urine Barbiturates Neg (NEG) Urine Phencyclidine Screen Neg (NEG) Urine Amphetamine/Methamphetamine Pos (NEG) Urine Benzodiazepines Screen Neg (NEG) Urine Cocaine Screen Neg (NEG) Urine Cannabinoids Screen Neg (NEG) Urine Ethyl Alcohol Neg (NEG) Bedside Urine HCG, Qualitative Hcg negative (Negative) Test 05/09/18 03:20 White Blood Count 9.8 x10^3/uL (4.0-11.0) Red Blood Count 4.42 x10^6/uL (3.50-5.40) Hemoglobin 11.3 g/dL (12.0-15.5) Hematocrit 34.5 % (36.0-47.0) Mean Corpuscular Volume 78 fL (79-100) Mean Corpuscular Hemoglobin 26 pg (25-35) Mean Corpuscular Hemoglobin Concent 33 g/dL (31-37) Red Cell Distribution Width 16.8 % (11.5-14.5) Platelet Count 227 x10^3/uL (140-400) Neutrophils (%) (Auto) 71 % (31-73) Lymphocytes (%) (Auto) 17 % (24-48) Monocytes (%) (Auto) 10 % (0-9) Eosinophils (%) (Auto) 1 % (0-3) Basophils (%) (Auto) 1 % (0-3) Neutrophils # (Auto) 7.0 x10^3uL (1.8-7.7) Lymphocytes # (Auto) 1.6 x10^3/uL (1.0-4.8) Monocytes # (Auto) 1.0 x10^3/uL (0.0-1.1) Eosinophils # (Auto) 0.1 x10^3/uL (0.0-0.7) Basophils # (Auto) 0.1 x10^3/uL (0.0-0.2) Sodium Level 133 mmol/L (136-145) Potassium Level 4.2 mmol/L (3.5-5.1) Chloride Level 98 mmol/L (98-107) Carbon Dioxide Level 29 mmol/L (21-32) Anion Gap 6 (6-14) Blood Urea Nitrogen 5 mg/dL (7-20) Creatinine 0.8 mg/dL (0.6-1.0) Estimated GFR (Cockcroft-Gault) 76.2 Glucose Level 180 mg/dL (70-99) Calcium Level 8.4 mg/dL (8.5-10.1) Iron Level 45 ug/dL (50-170) Total Iron Binding Capacity 496 ug/dL (250-450) Iron Saturation 9 % (15-34) Ferritin 19 ng/mL (8-252) Vitamin B12 Level 631 pg/mL (247-911) Allergies: Coded Allergies: No Known Drug Allergies (Unverified , 06/14/17) Medications: Current Medications Medications (Trade) Dose Ordered Sig/Curtis Route PRN Reason Start Time Stop Time Status Last Admin Dose Admin Morphine Sulfate (Morphine Sulfate) 4 mg PRN Q15MIN PRN IV/SQ PAIN GREATER THAN 3/10 05/08/18 14:30 05/09/18 14:29 05/08/18 17:11 Labetalol HCl (Normodyne Iv Push) 20 mg 1X ONCE IVP 05/08/18 14:30 05/08/18 14:31 DC 05/08/18 14:57 Nitroglycerin (Nitro-Bid Oint) 1 inch 1X ONCE TP 05/08/18 14:30 05/08/18 14:31 DC 05/08/18 14:56 Iohexol (Omnipaque 300 Mg/ml) 75 ml 1X ONCE IV 05/08/18 14:45 05/08/18 14:46 DC 05/08/18 16:00 Morphine Sulfate (Morphine Sulfate) 2 mg PRN Q2HR PRN IV MODERATE TO SEVERE PAIN 05/08/18 16:30 05/09/18 01:33 Tramadol HCl (Ultram) 50 mg PRN Q6HRS PRN PO MILD TO MODERATE PAIN 05/08/18 16:30 05/08/18 23:37 Lisinopril (Prinivil) 40 mg DAILY PO 05/08/18 17:00 05/09/18 09:10 Amlodipine Besylate (Norvasc) 10 mg DAILY PO 05/08/18 17:00 05/09/18 09:10 Sodium Chloride 1,000 ml @ 100 mls/hr Q10H IV 05/08/18 16:30 05/09/18 03:33 Magnesium Sulfate 50 ml @ 25 mls/hr 1X ONCE IV 05/08/18 16:45 05/08/18 18:44 DC 05/08/18 21:05 Pantoprazole Sodium (Protonix) 40 mg DAILYAC PO 05/09/18 07:30 05/09/18 07:36 Enoxaparin Sodium (Lovenox 40mg Syringe) 40 mg Q24H SQ 05/08/18 21:00 05/08/18 21:12 Albuterol/ Ipratropium (Duoneb) 3 ml RTQID NEB 05/08/18 16:30 05/09/18 07:15 Guaifenesin (Mucinex) 600 mg BID PO 05/08/18 21:00 05/09/18 09:09 Nicotine (Nicoderm Cq 21mg) 1 patch DAILY TD 05/08/18 18:30 05/09/18 09:11 Fentanyl Citrate (Fentanyl 2ml Vial) 50 mcg PRN Q2HR PRN IV PAIN 05/09/18 02:30 05/09/18 10:29 Imaging: Imaging: Head CT 05/08/18 Impression: No acute intracranial process. CT A/P 05/08/18 IMPRESSION: 1. Limited evaluation of the distal pulmonary arterial system due to suboptimal distal contrast opacification. No evidence of central, lobar, or segmental pulmonary embolism. 2. No acute intrathoracic, intra-abdominal, or intrapelvic process identified. 3. Hepatosplenomegaly. Possible microlobular contour of the liver which can be seen with cirrhosis, similar to prior exam. 4. Fluid within the endometrial canal and 2.7 x 2.4 cm left ovarian cyst are most likely physiologic given patient's age. Chest x-ray 05/08/18 PE: GEN: Drowsy, falling asleep multiple times during exam today HEENT: Atraumatic, PERRLA LUNGS: CTAB HEART: RRR, no murmurs ABD: Generalized tenderness, more so in epigastric region EXTREMITY: No edema SKIN: No rashes, no jaundice NEURO/PSYCH: A & O 3 A/P: A/P: Abdominal pain -Was reportedly left-sided at first, now more right-sided -With generalized abdominal bloating and pressure -CT with evidence of cirrhosis, otherwise unrevealing -Unclear as to source of pain at this point- pt states pain seems similar to pain felt with pleurisy in past, pt also with cirrhosis Hep C w/ cirrhosis -IVDU -mild transaminitis -no previous h/o treatment -consider initiating treatment as an outpatient if pt willing -suggest EGD to be done at some point to screen for varices CRC -No previous colonoscopy, average risk HTN -per cardiology Will review case with Dr. Mullen. EDA MAR May 09, 2018 10:49
[2018-05-09 11:00] VITALS: BP_SYST 14; BP_SYST 144; BP_DIAS 80
--- NOTE | 2018-05-09 12:08 | CONS ---
DATE OF CONSULTATION: ATTENDING PHYSICIAN: Dr. Bal. REASON FOR CONSULTATION: Dyspnea. HISTORY OF PRESENT ILLNESS: This is a 48-year-old female who came into the hospital with multiple complaints including diffuse generalized pain. She has a mild cough. Had some nausea, vomiting. The patient has some occasional shortness of breath and a mild cough. She had some subjective fever with sweats at home. She has been a smoker since 30 years. She underwent imaging study including CTA chest, which was reviewed by me. There was no evidence of pulmonary embolism. There were no other pulmonary parenchymal abnormalities seen. There was some left ovarian cyst reported and possibility of cirrhosis. I have been asked to see her for further evaluation. PAST MEDICAL HISTORY: Significant for hypertension and ongoing tobaccoism. Suspect underlying COPD. PAST SURGICAL HISTORY: . FAMILY HISTORY: Hypertension. SOCIAL HISTORY: One pack per day for 30 years and still smokes. REVIEW OF SYSTEMS: A 12-point system obtained. Pertinent positives discussed in my history of present illness, otherwise noncontributory. All systems that were negative were reviewed as well. PHYSICAL EXAMINATION: VITAL SIGNS: Reviewed, pulse ox 92% on room air. NECK: Supple. LUNGS: With diminished breath sounds, no wheezing. CARDIOVASCULAR: Regular rate and rhythm. ABDOMEN: Soft. EXTREMITIES: With no pitting edema. LABORATORY DATA: Reviewed. White cell count 9.8, hemoglobin 11.3 and platelets are 227. Toxicology screen positive for meth and she does take marijuana as well, but it was negative. IMPRESSION: 1. Generalized diffuse pain, could be related to methamphetamine withdrawal. No evidence of any pulmonary embolism. 2. 30 years of tobaccoism and suspect underlying chronic obstructive pulmonary disease without exacerbation. 3. Substance abuse. 4. Ongoing tobaccoism. RECOMMENDATION: 1. From a pulmonary standpoint, continue nebulizer treatments. 2. DVT prophylaxis. 3. Smoking cessation counseling provided. 4. Counseling regarding substance abuse was provided as well. 5. No further recommendations at this point. FREDI MAHONEY MD DR: LISA/joy JOB#: [id number] / [id number]
--- NOTE | 2018-05-09 13:14 | PDOC ---
PROGRESS NOTES Chief Complaint Chief Complaint Abd pain Pleurisy likely Headache, 2/2 HTN urgency Chronic bloody stool as per pt with mild anemia h/o hep C OCD ADHD H/O encephalitis Tobaccoism h/o drug abuse with marijuana Mild malnutrition History of Present Illness History of Present Illness Pt seen and examined with RN Pt has a very unusual affect CO abd pain Vitals Vitals Vital Signs Date Time Temp Pulse Resp B/P (MAP) Pulse Ox O2 Delivery O2 Flow Rate FiO2 05/09/18 11:54 92 Room Air 05/09/18 11:00 98.2 88 18 14/80 (58) 98.2 Physical Exam General: Alert, mild distress Heart: Regular rate, Normal S1 Lungs: Clear Abdomen: Normal bowel sounds, Other (tender) Extremities: No clubbing, No cyanosis Skin: No rashes, No breakdown Labs LABS Laboratory Tests Test 05/08/18 14:38 05/08/18 15:07 05/08/18 15:36 05/08/18 22:00 White Blood Count 7.2 x10^3/uL (4.0-11.0) Red Blood Count 4.29 x10^6/uL (3.50-5.40) Hemoglobin 11.0 g/dL (12.0-15.5) Hematocrit 33.3 % (36.0-47.0) Mean Corpuscular Volume 78 fL (79-100) Mean Corpuscular Hemoglobin 26 pg (25-35) Mean Corpuscular Hemoglobin Concent 33 g/dL (31-37) Red Cell Distribution Width 16.1 % (11.5-14.5) Platelet Count 202 x10^3/uL (140-400) Neutrophils (%) (Auto) 74 % (31-73) Lymphocytes (%) (Auto) 17 % (24-48) Monocytes (%) (Auto) 8 % (0-9) Eosinophils (%) (Auto) 1 % (0-3) Basophils (%) (Auto) 0 % (0-3) Neutrophils # (Auto) 5.3 x10^3uL (1.8-7.7) Lymphocytes # (Auto) 1.2 x10^3/uL (1.0-4.8) Monocytes # (Auto) 0.6 x10^3/uL (0.0-1.1) Eosinophils # (Auto) 0.1 x10^3/uL (0.0-0.7) Basophils # (Auto) 0.0 x10^3/uL (0.0-0.2) Sodium Level 136 mmol/L (136-145) Potassium Level 3.7 mmol/L (3.5-5.1) Chloride Level 98 mmol/L (98-107) Carbon Dioxide Level 28 mmol/L (21-32) Anion Gap 10 (6-14) Blood Urea Nitrogen 7 mg/dL (7-20) Creatinine 0.9 mg/dL (0.6-1.0) Estimated GFR (Cockcroft-Gault) 66.5 BUN/Creatinine Ratio 8 (6-20) Glucose Level 216 mg/dL (70-99) Lactic Acid Level 2.1 mmol/L (0.4-2.0) Calcium Level 8.7 mg/dL (8.5-10.1) Magnesium Level 1.7 mg/dL (1.8-2.4) Total Bilirubin 0.5 mg/dL (0.2-1.0) Aspartate Amino Transf (AST/SGOT) 60 U/L (15-37) Alanine Aminotransferase (ALT/SGPT) 86 U/L (14-59) Alkaline Phosphatase 115 U/L (46-116) Creatine Kinase 38 U/L (26-192) Creatine Kinase MB (Mass) 0.9 ng/mL (0.0-3.6) Creatine Kinase MB Relative Index 2.4 % (0-4) Troponin I Quantitative < 0.017 ng/mL (0.000-0.055) < 0.017 ng/mL (0.000-0.055) LR-Crm-X-Type Natriuretic Peptide 187 pg/mL (0-124) Total Protein 8.1 g/dL (6.4-8.2) Albumin 3.2 g/dL (3.4-5.0) Albumin/Globulin Ratio 0.7 (1.0-1.7) Lipase 138 U/L (73-393) Thyroid Stimulating Hormone (TSH) 1.349 uIU/mL (0.358-3.74) Free Thyroxine 1.04 ng/dL (0.76-1.46) Influenza Type A Antigen Negative (NEGATIVE) Influenza Type B Antigen Negative (NEGATIVE) Urine Collection Type Unknown Urine Color Yellow Urine Clarity Cloudy Urine pH 7.0 Urine Specific [place] >=1.030 Urine Protein Negative mg/dL (NEG-TRACE) Urine Glucose (UA) >=1000 mg/dL (NEG) Urine Ketones (Stick) Negative mg/dL (NEG) Urine Blood Negative (NEG) Urine Nitrite Negative (NEG) Urine Bilirubin Negative (NEG) Urine Urobilinogen Dipstick 1.0 mg/dL (0.2 mg/dL) Urine Leukocyte Esterase Negative (NEG) Urine RBC 0 /HPF (0-2) Urine WBC 0 /HPF (0-4) Urine Squamous Epithelial Cells Mod /LPF Urine Bacteria 0 /HPF (0-FEW) Urine Mucus Slight /LPF Urine Opiates Screen Neg (NEG) Urine Methadone Screen Neg (NEG) Urine Barbiturates Neg (NEG) Urine Phencyclidine Screen Neg (NEG) Urine Amphetamine/Methamphetamine Pos (NEG) Urine Benzodiazepines Screen Neg (NEG) Urine Cocaine Screen Neg (NEG) Urine Cannabinoids Screen Neg (NEG) Urine Ethyl Alcohol Neg (NEG) Bedside Urine HCG, Qualitative Hcg negative (Negative) Test 05/09/18 03:20 White Blood Count 9.8 x10^3/uL (4.0-11.0) Red Blood Count 4.42 x10^6/uL (3.50-5.40) Hemoglobin 11.3 g/dL (12.0-15.5) Hematocrit 34.5 % (36.0-47.0) Mean Corpuscular Volume 78 fL (79-100) Mean Corpuscular Hemoglobin 26 pg (25-35) Mean Corpuscular Hemoglobin Concent 33 g/dL (31-37) Red Cell Distribution Width 16.8 % (11.5-14.5) Platelet Count 227 x10^3/uL (140-400) Neutrophils (%) (Auto) 71 % (31-73) Lymphocytes (%) (Auto) 17 % (24-48) Monocytes (%) (Auto) 10 % (0-9) Eosinophils (%) (Auto) 1 % (0-3) Basophils (%) (Auto) 1 % (0-3) Neutrophils # (Auto) 7.0 x10^3uL (1.8-7.7) Lymphocytes # (Auto) 1.6 x10^3/uL (1.0-4.8) Monocytes # (Auto) 1.0 x10^3/uL (0.0-1.1) Eosinophils # (Auto) 0.1 x10^3/uL (0.0-0.7) Basophils # (Auto) 0.1 x10^3/uL (0.0-0.2) Sodium Level 133 mmol/L (136-145) Potassium Level 4.2 mmol/L (3.5-5.1) Chloride Level 98 mmol/L (98-107) Carbon Dioxide Level 29 mmol/L (21-32) Anion Gap 6 (6-14) Blood Urea Nitrogen 5 mg/dL (7-20) Creatinine 0.8 mg/dL (0.6-1.0) Estimated GFR (Cockcroft-Gault) 76.2 Glucose Level 180 mg/dL (70-99) Calcium Level 8.4 mg/dL (8.5-10.1) Iron Level 45 ug/dL (50-170) Total Iron Binding Capacity 496 ug/dL (250-450) Iron Saturation 9 % (15-34) Ferritin 19 ng/mL (8-252) Vitamin B12 Level 631 pg/mL (247-911) Review of Systems Review of Systems co pain co nausea Assessment and Plan Assessmemt and Plan Problems Medical Problems: (1) Abdominal pain Status: Acute (2) Chest pain Status: Acute Abd pain Pleurisy likely Headache, 2/2 HTN urgency Chronic bloody stool as per pt with mild anemia h/o hep C OCD ADHD H/O encephalitis Tobaccoism h/o drug abuse with marijuana Mild malnutrition Plan: Abd U/S to r/o gallstones Labs Home meds pulm, gi , card consult clear liquid diet for now dvt, gi ppx Duoneb, abluterol prnAbd pain PRN narcotics Comment Review of Relevant I have reviewed the following items mary (where applicable) has been applied. Labs Laboratory Tests Test 05/08/18 14:38 05/08/18 15:07 05/08/18 15:36 05/08/18 22:00 White Blood Count 7.2 x10^3/uL (4.0-11.0) Red Blood Count 4.29 x10^6/uL (3.50-5.40) Hemoglobin 11.0 g/dL (12.0-15.5) Hematocrit 33.3 % (36.0-47.0) Mean Corpuscular Volume 78 fL (79-100) Mean Corpuscular Hemoglobin 26 pg (25-35) Mean Corpuscular Hemoglobin Concent 33 g/dL (31-37) Red Cell Distribution Width 16.1 % (11.5-14.5) Platelet Count 202 x10^3/uL (140-400) Neutrophils (%) (Auto) 74 % (31-73) Lymphocytes (%) (Auto) 17 % (24-48) Monocytes (%) (Auto) 8 % (0-9) Eosinophils (%) (Auto) 1 % (0-3) Basophils (%) (Auto) 0 % (0-3) Neutrophils # (Auto) 5.3 x10^3uL (1.8-7.7) Lymphocytes # (Auto) 1.2 x10^3/uL (1.0-4.8) Monocytes # (Auto) 0.6 x10^3/uL (0.0-1.1) Eosinophils # (Auto) 0.1 x10^3/uL (0.0-0.7) Basophils # (Auto) 0.0 x10^3/uL (0.0-0.2) Sodium Level 136 mmol/L (136-145) Potassium Level 3.7 mmol/L (3.5-5.1) Chloride Level 98 mmol/L (98-107) Carbon Dioxide Level 28 mmol/L (21-32) Anion Gap 10 (6-14) Blood Urea Nitrogen 7 mg/dL (7-20) Creatinine 0.9 mg/dL (0.6-1.0) Estimated GFR (Cockcroft-Gault) 66.5 BUN/Creatinine Ratio 8 (6-20) Glucose Level 216 mg/dL (70-99) Lactic Acid Level 2.1 mmol/L (0.4-2.0) Calcium Level 8.7 mg/dL (8.5-10.1) Magnesium Level 1.7 mg/dL (1.8-2.4) Total Bilirubin 0.5 mg/dL (0.2-1.0) Aspartate Amino Transf (AST/SGOT) 60 U/L (15-37) Alanine Aminotransferase (ALT/SGPT) 86 U/L (14-59) Alkaline Phosphatase 115 U/L (46-116) Creatine Kinase 38 U/L (26-192) Creatine Kinase MB (Mass) 0.9 ng/mL (0.0-3.6) Creatine Kinase MB Relative Index 2.4 % (0-4) Troponin I Quantitative < 0.017 ng/mL (0.000-0.055) < 0.017 ng/mL (0.000-0.055) TI-Rrk-Q-Type Natriuretic Peptide 187 pg/mL (0-124) Total Protein 8.1 g/dL (6.4-8.2) Albumin 3.2 g/dL (3.4-5.0) Albumin/Globulin Ratio 0.7 (1.0-1.7) Lipase 138 U/L (73-393) Thyroid Stimulating Hormone (TSH) 1.349 uIU/mL (0.358-3.74) Free Thyroxine 1.04 ng/dL (0.76-1.46) Influenza Type A Antigen Negative (NEGATIVE) Influenza Type B Antigen Negative (NEGATIVE) Urine Collection Type Unknown Urine Color Yellow Urine Clarity Cloudy Urine pH 7.0 Urine Specific [place] >=1.030 Urine Protein Negative mg/dL (NEG-TRACE) Urine Glucose (UA) >=1000 mg/dL (NEG) Urine Ketones (Stick) Negative mg/dL (NEG) Urine Blood Negative (NEG) Urine Nitrite Negative (NEG) Urine Bilirubin Negative (NEG) Urine Urobilinogen Dipstick 1.0 mg/dL (0.2 mg/dL) Urine Leukocyte Esterase Negative (NEG) Urine RBC 0 /HPF (0-2) Urine WBC 0 /HPF (0-4) Urine Squamous Epithelial Cells Mod /LPF Urine Bacteria 0 /HPF (0-FEW) Urine Mucus Slight /LPF Urine Opiates Screen Neg (NEG) Urine Methadone Screen Neg (NEG) Urine Barbiturates Neg (NEG) Urine Phencyclidine Screen Neg (NEG) Urine Amphetamine/Methamphetamine Pos (NEG) Urine Benzodiazepines Screen Neg (NEG) Urine Cocaine Screen Neg (NEG) Urine Cannabinoids Screen Neg (NEG) Urine Ethyl Alcohol Neg (NEG) Bedside Urine HCG, Qualitative Hcg negative (Negative) Test 05/09/18 03:20 White Blood Count 9.8 x10^3/uL (4.0-11.0) Red Blood Count 4.42 x10^6/uL (3.50-5.40) Hemoglobin 11.3 g/dL (12.0-15.5) Hematocrit 34.5 % (36.0-47.0) Mean Corpuscular Volume 78 fL (79-100) Mean Corpuscular Hemoglobin 26 pg (25-35) Mean Corpuscular Hemoglobin Concent 33 g/dL (31-37) Red Cell Distribution Width 16.8 % (11.5-14.5) Platelet Count 227 x10^3/uL (140-400) Neutrophils (%) (Auto) 71 % (31-73) Lymphocytes (%) (Auto) 17 % (24-48) Monocytes (%) (Auto) 10 % (0-9) Eosinophils (%) (Auto) 1 % (0-3) Basophils (%) (Auto) 1 % (0-3) Neutrophils # (Auto) 7.0 x10^3uL (1.8-7.7) Lymphocytes # (Auto) 1.6 x10^3/uL (1.0-4.8) Monocytes # (Auto) 1.0 x10^3/uL (0.0-1.1) Eosinophils # (Auto) 0.1 x10^3/uL (0.0-0.7) Basophils # (Auto) 0.1 x10^3/uL (0.0-0.2) Sodium Level 133 mmol/L (136-145) Potassium Level 4.2 mmol/L (3.5-5.1) Chloride Level 98 mmol/L (98-107) Carbon Dioxide Level 29 mmol/L (21-32) Anion Gap 6 (6-14) Blood Urea Nitrogen 5 mg/dL (7-20) Creatinine 0.8 mg/dL (0.6-1.0) Estimated GFR (Cockcroft-Gault) 76.2 Glucose Level 180 mg/dL (70-99) Calcium Level 8.4 mg/dL (8.5-10.1) Iron Level 45 ug/dL (50-170) Total Iron Binding Capacity 496 ug/dL (250-450) Iron Saturation 9 % (15-34) Ferritin 19 ng/mL (8-252) Vitamin B12 Level 631 pg/mL (247-911) Laboratory Tests Test 05/08/18 14:38 05/08/18 15:07 05/08/18 15:36 05/08/18 22:00 White Blood Count 7.2 x10^3/uL (4.0-11.0) Red Blood Count 4.29 x10^6/uL (3.50-5.40) Hemoglobin 11.0 g/dL (12.0-15.5) Hematocrit 33.3 % (36.0-47.0) Mean Corpuscular Volume 78 fL (79-100) Mean Corpuscular Hemoglobin 26 pg (25-35) Mean Corpuscular Hemoglobin Concent 33 g/dL (31-37) Red Cell Distribution Width 16.1 % (11.5-14.5) Platelet Count 202 x10^3/uL (140-400) Neutrophils (%) (Auto) 74 % (31-73) Lymphocytes (%) (Auto) 17 % (24-48) Monocytes (%) (Auto) 8 % (0-9) Eosinophils (%) (Auto) 1 % (0-3) Basophils (%) (Auto) 0 % (0-3) Neutrophils # (Auto) 5.3 x10^3uL (1.8-7.7) Lymphocytes # (Auto) 1.2 x10^3/uL (1.0-4.8) Monocytes # (Auto) 0.6 x10^3/uL (0.0-1.1) Eosinophils # (Auto) 0.1 x10^3/uL (0.0-0.7) Basophils # (Auto) 0.0 x10^3/uL (0.0-0.2) Sodium Level 136 mmol/L (136-145) Potassium Level 3.7 mmol/L (3.5-5.1) Chloride Level 98 mmol/L (98-107) Carbon Dioxide Level 28 mmol/L (21-32) Anion Gap 10 (6-14) Blood Urea Nitrogen 7 mg/dL (7-20) Creatinine 0.9 mg/dL (0.6-1.0) Estimated GFR (Cockcroft-Gault) 66.5 BUN/Creatinine Ratio 8 (6-20) Glucose Level 216 mg/dL (70-99) Lactic Acid Level 2.1 mmol/L (0.4-2.0) Calcium Level 8.7 mg/dL (8.5-10.1) Magnesium Level 1.7 mg/dL (1.8-2.4) Total Bilirubin 0.5 mg/dL (0.2-1.0) Aspartate Amino Transf (AST/SGOT) 60 U/L (15-37) Alanine Aminotransferase (ALT/SGPT) 86 U/L (14-59) Alkaline Phosphatase 115 U/L (46-116) Creatine Kinase 38 U/L (26-192) Creatine Kinase MB (Mass) 0.9 ng/mL (0.0-3.6) Creatine Kinase MB Relative Index 2.4 % (0-4) Troponin I Quantitative < 0.017 ng/mL (0.000-0.055) < 0.017 ng/mL (0.000-0.055) KT-Duq-O-Type Natriuretic Peptide 187 pg/mL (0-124) Total Protein 8.1 g/dL (6.4-8.2) Albumin 3.2 g/dL (3.4-5.0) Albumin/Globulin Ratio 0.7 (1.0-1.7) Lipase 138 U/L (73-393) Thyroid Stimulating Hormone (TSH) 1.349 uIU/mL (0.358-3.74) Free Thyroxine 1.04 ng/dL (0.76-1.46) Influenza Type A Antigen Negative (NEGATIVE) Influenza Type B Antigen Negative (NEGATIVE) Urine Collection Type Unknown Urine Color Yellow Urine Clarity Cloudy Urine pH 7.0 Urine Specific [place] >=1.030 Urine Protein Negative mg/dL (NEG-TRACE) Urine Glucose (UA) >=1000 mg/dL (NEG) Urine Ketones (Stick) Negative mg/dL (NEG) Urine Blood Negative (NEG) Urine Nitrite Negative (NEG) Urine Bilirubin Negative (NEG) Urine Urobilinogen Dipstick 1.0 mg/dL (0.2 mg/dL) Urine Leukocyte Esterase Negative (NEG) Urine RBC 0 /HPF (0-2) Urine WBC 0 /HPF (0-4) Urine Squamous Epithelial Cells Mod /LPF Urine Bacteria 0 /HPF (0-FEW) Urine Mucus Slight /LPF Urine Opiates Screen Neg (NEG) Urine Methadone Screen Neg (NEG) Urine Barbiturates Neg (NEG) Urine Phencyclidine Screen Neg (NEG) Urine Amphetamine/Methamphetamine Pos (NEG) Urine Benzodiazepines Screen Neg (NEG) Urine Cocaine Screen Neg (NEG) Urine Cannabinoids Screen Neg (NEG) Urine Ethyl Alcohol Neg (NEG) Bedside Urine HCG, Qualitative Hcg negative (Negative) Test 05/09/18 03:20 White Blood Count 9.8 x10^3/uL (4.0-11.0) Red Blood Count 4.42 x10^6/uL (3.50-5.40) Hemoglobin 11.3 g/dL (12.0-15.5) Hematocrit 34.5 % (36.0-47.0) Mean Corpuscular Volume 78 fL (79-100) Mean Corpuscular Hemoglobin 26 pg (25-35) Mean Corpuscular Hemoglobin Concent 33 g/dL (31-37) Red Cell Distribution Width 16.8 % (11.5-14.5) Platelet Count 227 x10^3/uL (140-400) Neutrophils (%) (Auto) 71 % (31-73) Lymphocytes (%) (Auto) 17 % (24-48) Monocytes (%) (Auto) 10 % (0-9) Eosinophils (%) (Auto) 1 % (0-3) Basophils (%) (Auto) 1 % (0-3) Neutrophils # (Auto) 7.0 x10^3uL (1.8-7.7) Lymphocytes # (Auto) 1.6 x10^3/uL (1.0-4.8) Monocytes # (Auto) 1.0 x10^3/uL (0.0-1.1) Eosinophils # (Auto) 0.1 x10^3/uL (0.0-0.7) Basophils # (Auto) 0.1 x10^3/uL (0.0-0.2) Sodium Level 133 mmol/L (136-145) Potassium Level 4.2 mmol/L (3.5-5.1) Chloride Level 98 mmol/L (98-107) Carbon Dioxide Level 29 mmol/L (21-32) Anion Gap 6 (6-14) Blood Urea Nitrogen 5 mg/dL (7-20) Creatinine 0.8 mg/dL (0.6-1.0) Estimated GFR (Cockcroft-Gault) 76.2 Glucose Level 180 mg/dL (70-99) Calcium Level 8.4 mg/dL (8.5-10.1) Iron Level 45 ug/dL (50-170) Total Iron Binding Capacity 496 ug/dL (250-450) Iron Saturation 9 % (15-34) Ferritin 19 ng/mL (8-252) Vitamin B12 Level 631 pg/mL (247-911) Medications Current Medications Morphine Sulfate (Morphine Sulfate) 4 mg PRN Q15MIN PRN IV/SQ PAIN GREATER THAN 3/10 Last administered on 05/08/18at 17:11; Start 05/08/18 at 14:30; Stop 05/09/18 at 14:29 Labetalol HCl (Normodyne Iv Push) 20 mg 1X ONCE IVP Last administered on 05/08at 14:57; Start 05/08/18 at 14:30; Stop 05/08/18 at 14:31; Status DC Nitroglycerin (Nitro-Bid Oint) 1 inch 1X ONCE TP Last administered on at 14:56; Start 05/08/18 at 14:30; Stop 05/08/18 at 14:31; Status DC Iohexol (Omnipaque 300 Mg/ml) 75 ml 1X ONCE IV Last administered on at 16:00; Start 05/08/18 at 14:45; Stop 05/08/18 at 14:46; Status DC Info (CONTRAST GIVEN -- Rx MONITORING) 1 each PRN DAILY PRN MC SEE COMMENTS; Start 05/08/18 at 14:45; Stop 05/10/18 at 14:44 Acetaminophen (Tylenol) 650 mg PRN Q6HRS PRN PO FEVER; Start 05/08/18 at 16:30 Ondansetron HCl (Zofran) 4 mg PRN Q6HRS PRN IV NAUSEA/VOMITING; Start at 16:30 Morphine Sulfate (Morphine Sulfate) 2 mg PRN Q2HR PRN IV MODERATE TO SEVERE PAIN Last administered on 05/09/18at 01:33; Start 05/08/18 at 16:30 Tramadol HCl (Ultram) 50 mg PRN Q6HRS PRN PO MILD TO MODERATE PAIN Last administered on 05/08/18at 23:37; Start 05/08/18 at 16:30 Docusate Sodium (Colace) 100 mg PRN DAILY PRN PO CONSTIPATION; Start 05/08/18 at 16:30 Labetalol HCl (Normodyne Iv Push) 20 mg PRN Q2HR PRN IVP HYPERTENSION, SEE COMMENTS; Start 05/08/18 at 16:30 Lisinopril (Prinivil) 40 mg DAILY PO Last administered on 05/09/18at 09:10; Start 05/08/18 at 17:00 Amlodipine Besylate (Norvasc) 10 mg DAILY PO Last administered on 05/09/18at 09 :10; Start 05/08/18 at 17:00 Sodium Chloride 1,000 ml @ 100 mls/hr Q10H IV Last administered on 05/09/18at 12:26; Start 05/08/18 at 16:30 Magnesium Sulfate 50 ml @ 25 mls/hr 1X ONCE IV Last administered on at 21:05; Start 05/08/18 at 16:45; Stop 05/08/18 at 18:44; Status DC Pantoprazole Sodium (Protonix) 40 mg DAILYAC PO Last administered on at 07:36; Start 05/09/18 at 07:30 Enoxaparin Sodium (Lovenox 40mg Syringe) 40 mg Q24H SQ Last administered on at 21:12; Start 05/08/18 at 21:00 Albuterol/ Ipratropium (Duoneb) 3 ml RTQID NEB Last administered on 05/09/18at 11:53; Start 05/08/18 at 16:30 Albuterol Sulfate (Ventolin Neb Soln) 2.5 mg PRN Q2HR PRN NEB SHORTNESS OF BREATH; Start 05/08/18 at 16:45 Guaifenesin (Mucinex) 600 mg BID PO Last administered on 05/09/18at 09:09; Start 05/08/18 at 21:00 Nicotine (Nicoderm Cq 21mg) 1 patch PRN DAILY PRN TD SMOKING CESSATION; Start 05/08/18 at 16:45; Stop 05/08/18 at 18:17; Status DC Nicotine (Nicoderm Cq 21mg) 1 patch DAILY TD Last administered on 05/09/18at 09 :11; Start 05/08/18 at 18:30 Fentanyl Citrate (Fentanyl 2ml Vial) 50 mcg PRN Q2HR PRN IV PAIN Last administered on 05/09/18at 10:29; Start 05/09/18 at 02:30 Active Scripts Active Oxycodone-Acetaminophen 5-325 (Oxycodone Hcl/Acetaminophen) 1 Each Tablet 1 Tab PO PRN Q6HRS PRN Lisinopril 20 Mg Tablet 40 Mg PO DAILY Vitals/I & O Vital Sign - Last 24 Hours 05/08/18 05/08/18 05/08/18 05/08/18 14:11 14:30 14:56 14:57 Temp 99.6 99.6 Pulse 115 110 112 112 Resp 20 20 B/P (MAP) 228/110 (149) 233/100 (144) 216/95 216/95 Pulse Ox 98 99 O2 Delivery Room Air Room Air 05/08/18 05/08/18 05/08/18 05/08/18 15:00 15:30 16:00 17:11 Pulse 102 96 95 Resp 20 18 20 B/P (MAP) 210/98 (135) 180/88 (118) 172/88 (116) Pulse Ox 98 98 99 99 O2 Delivery Room Air Room Air Room Air Room Air 05/08/18 05/08/18 05/08/18 05/08/18 17:47 19:00 19:00 19:59 Temp 98.8 98.8 Pulse 105 Resp 18 B/P (MAP) 162/87 (112) Pulse Ox 97 95 97 O2 Delivery Room Air Room Air Room Air Room Air 05/08/18 05/08/18 05/08/18 05/08/18 20:10 21:03 21:04 23:00 Temp 98.1 98.1 Pulse 105 105 90 Resp 20 B/P (MAP) 162/87 162/87 160/93 (115) Pulse Ox 94 O2 Delivery Room Air Room Air 05/09/18 05/09/18 05/09/18 05/09/18 00:45 01:33 02:29 03:00 Temp 98.7 98.7 Pulse 80 Resp 20 B/P (MAP) 162/84 (110) Pulse Ox 93 O2 Delivery Room Air Room Air Room Air Room Air 05/09/18 05/09/18 05/09/18 05/09/18 03:33 04:32 05:40 07:00 Temp 98.9 98.9 Pulse 91 Resp 20 B/P (MAP) 135/73 (93) Pulse Ox 94 93 O2 Delivery Room Air Room Air Room Air 05/09/18 05/09/18 05/09/18 05/09/18 07:15 07:41 08:00 09:10 Pulse 91 Resp 20 B/P (MAP) 135/73 Pulse Ox 92 O2 Delivery Room Air Room Air Room Air 05/09/18 05/09/18 05/09/18 05/09/18 09:10 10:29 10:59 11:00 Temp 98.2 98.2 Pulse 91 88 Resp 20 18 18 B/P (MAP) 135/73 14/80 (58) Pulse Ox 96 O2 Delivery Room Air Room Air Room Air 05/09/18 11:54 Pulse Ox 92 O2 Delivery Room Air Intake and Output 05/08/18 05/08/18 05/09/18 15:00 23:00 07:00 Intake Total 2360 ml Balance 2360 ml RENATA BENITEZ III DO May 09, 2018 13:14
[2018-05-09 13:44] LABS: CHOLESTEROL/HDL RATIO 3.9
[2018-05-09 15:00] VITALS: BP 157/87
--- NOTE | 2018-05-09 16:47 | CARD ---
MR#: [id number] Date of Study: 05/09/2018 Ordering Physician: CARRINGTON GARDUNO, Referring Physician: FRANSISCO DAY Tech: Blanca Martinez RDCS APPROVED REPORT EXAM: Two-dimensional and M-mode echocardiogram with Doppler and color Doppler. Other Information Quality : Good INDICATION Chest Pain 2D DIMENSIONS RVDd2.5 (2.9-3.5cm)Left Atrium(2D)3.8 (1.6-4.0cm) IVSd1.6 (0.7-1.1cm)Aortic Root(2D)2.9 (2.0-3.7cm) LVDd4.1 (3.9-5.9cm)LVOT Diameter2.0 (1.8-2.4cm) PWd1.2 (0.7-1.1cm)LVDs2.8 (2.5-4.0cm) FS (%) 31.9 %SV44.8 ml LVEF(%)60.5 (>50%) Aortic Valve AoV Peak Peng.155.9cm/sAoV VTI24.7cm AO Peak GR.9.7mmHgLVOT VTI 22.91cm AO Mean GR.6mmHgAVA (VTI)2.85cm2 Mitral Valve MV E Zakeayfm545.9cm/sMV DECEL [id number] MV A Bozjtthf986.2cm/sE/A Ratio1.1 TDI Lateral E' P. V4.89cm/sMedial E' P. V3.73cm/s E/Lateral E'24.1E/Medial E'31.6 Tricuspid Valve TR P. Svpbwqhe786mc/sRAP [id number] TR Peak Gr.[id number] Pulmonary Vein S1 Rtkrvrxv79.7cm/sS2 Pbbvegxx04.28cm/s D2 Nwwueqag24.3cm/s LEFT VENTRICLE The left ventricle is normal size. There is mild to moderate concentric left ventricular hypertrophy. The left ventricular systolic function is normal. The Ejection Fraction is 60-65%. There is normal L V segmental wall motion. The left ventricular diastolic function and filling is normal for age. RIGHT VENTRICLE The right ventricle is normal size. The right ventricular systolic function is normal. ATRIA The left atrium size is normal. The right atrium size is normal. The interatrial septum is intact wit h no evidence for an atrial septal defect or patent foramen ovale as noted on 2-D or Doppler imaging. AORTIC VALVE The aortic valve is not well visualized but appears to be functioning normally by Doppler interrogati on. Doppler and Color Flow revealed no significant aortic regurgitation. There is no significant aort ic valvular stenosis. MITRAL VALVE The mitral valve is calcified but opens well. There is no evidence of mitral valve prolapse. There is no mitral valve stenosis. Doppler and Color-flow revealed trace mitral regurgitation. TRICUSPID VALVE The tricuspid valve is normal in structure and function. Doppler and Color Flow revealed mild tricusp id regurgitation. There is mild-moderate pulmonary hypertension. The PA pressure was estimated at 40 mmHg. There is no tricuspid valve stenosis. PULMONIC VALVE The pulmonic valve is not well visualized. Doppler and Color Flow revealed no pulmonic valvular regur gitation. There is no pulmonic valvular stenosis. GREAT VESSELS The aortic root is normal in size. The ascending aorta is not well seen. The IVC is normal in size an d collapses >50% with inspiration. PERICARDIAL EFFUSION There is no evidence of significant pericardial effusion. Critical Notification Critical Value: No <Conclusion> The left ventricular systolic function is normal. The Ejection Fraction is 60-65%. There is normal LV segmental wall motion. Trace mitral regurgitation. Mild tricuspid regurgitation. The PA pressure was estimated at 40 mmHg. There is no evidence of significant pericardial effusion. Signed by : Sebastián Marques, Electronically Approved : 05/09/2018 16:46:57
[2018-05-09 19:00] VITALS: BP 145/77
[2018-05-09] MEDS: ENOXAPARIN 40 MG/0.4 ML SYRINGE. SQ SCH (22:43)
[2018-05-09 23:00] VITALS: BP 145/74
[2018-05-10] MEDS: MORPHINE SULFATE 2 MG/ML VIAL. IV PRN ×4 (00:25→07:24)
[2018-05-10 03:00] VITALS: BP 140/73
[2018-05-10] MEDS: PANTOPRAZOLE 40 MG TABLET.DR. PO SCH (07:24)
[2018-05-10] MEDS: IPRATRPIUM/ALBUTEROL 0.5/2.5MG 3 ML NEBU. NEB SCH ×4 (07:30→20:31)
[2018-05-10 07:52] VITALS: BP 186/102
--- NOTE | 2018-05-10 07:52 | RAD ---
Right upper quadrant abdominal ultrasound, 05/09/2018: HISTORY: Right upper quadrant pain The gallbladder is within normal limits in size. There is no sonographic evidence of cholelithiasis. The gallbladder wall is not thickened. The common hepatic duct is of normal caliber. The liver is mildly enlarged measuring 19 cm in craniocaudad extent at the level the right lobe. There is no evidence of a hepatic mass. The visualized portions of the pancreas and right kidney are unremarkable. IMPRESSION: 1. Mild hepatomegaly. 2. No gallbladder abnormality is detected. Electronically signed by: Yobani Patten MD (05/10/2018 7:48 AM) [facility]
[2018-05-10] MEDS: IV NORMAL SALINE 1000ML BAG 1,000 ML IV SCH ×2 (08:30→18:30)
[2018-05-10] MEDS: LISINOPRIL 20 MG TABLET PO SCH (08:53)
[2018-05-10] MEDS: amLODIPine BESYLATE 10 MG TABLET PO SCH (08:53)
[2018-05-10] MEDS: NICOTINE 21MG PATCH. TD SCH (08:57)
[2018-05-10] MEDS ORDERED: LISINOPRIL 5 MG TABLET. PO SCH (09:00)
--- NOTE | 2018-05-10 09:20 | PDOC ---
PULMONARY PROGRESS NOTES Subjective PT NOT MORE SOA Vitals Vital Signs Date Time Temp Pulse Resp B/P (MAP) Pulse Ox O2 Delivery O2 Flow Rate FiO2 05/10/18 08:58 96 Room Air 05/10/18 08:53 109 186/102 05/10/18 07:52 98.6 18 98.6 Lungs: Clear Cardiovascular: S1, S2 Abdomen: Soft Neuro Exam: Alert Extremities: No Edema Skin: Warm Labs Laboratory Tests Test 05/08/18 14:38 05/08/18 15:07 05/08/18 15:36 05/08/18 16:26 White Blood Count 7.2 x10^3/uL (4.0-11.0) Red Blood Count 4.29 x10^6/uL (3.50-5.40) Hemoglobin 11.0 g/dL (12.0-15.5) Hematocrit 33.3 % (36.0-47.0) Mean Corpuscular Volume 78 fL (79-100) Mean Corpuscular Hemoglobin 26 pg (25-35) Mean Corpuscular Hemoglobin Concent 33 g/dL (31-37) Red Cell Distribution Width 16.1 % (11.5-14.5) Platelet Count 202 x10^3/uL (140-400) Neutrophils (%) (Auto) 74 % (31-73) Lymphocytes (%) (Auto) 17 % (24-48) Monocytes (%) (Auto) 8 % (0-9) Eosinophils (%) (Auto) 1 % (0-3) Basophils (%) (Auto) 0 % (0-3) Neutrophils # (Auto) 5.3 x10^3uL (1.8-7.7) Lymphocytes # (Auto) 1.2 x10^3/uL (1.0-4.8) Monocytes # (Auto) 0.6 x10^3/uL (0.0-1.1) Eosinophils # (Auto) 0.1 x10^3/uL (0.0-0.7) Basophils # (Auto) 0.0 x10^3/uL (0.0-0.2) Sodium Level 136 mmol/L (136-145) Potassium Level 3.7 mmol/L (3.5-5.1) Chloride Level 98 mmol/L (98-107) Carbon Dioxide Level 28 mmol/L (21-32) Anion Gap 10 (6-14) Blood Urea Nitrogen 7 mg/dL (7-20) Creatinine 0.9 mg/dL (0.6-1.0) Estimated GFR (Cockcroft-Gault) 66.5 BUN/Creatinine Ratio 8 (6-20) Glucose Level 216 mg/dL (70-99) Hemoglobin A1c 6.0 % (4.8-5.6) Lactic Acid Level 2.1 mmol/L (0.4-2.0) Calcium Level 8.7 mg/dL (8.5-10.1) Magnesium Level 1.7 mg/dL (1.8-2.4) Total Bilirubin 0.5 mg/dL (0.2-1.0) Aspartate Amino Transf (AST/SGOT) 60 U/L (15-37) Alanine Aminotransferase (ALT/SGPT) 86 U/L (14-59) Alkaline Phosphatase 115 U/L (46-116) Creatine Kinase 38 U/L (26-192) Creatine Kinase MB (Mass) 0.9 ng/mL (0.0-3.6) Creatine Kinase MB Relative Index 2.4 % (0-4) Troponin I Quantitative < 0.017 ng/mL (0.000-0.055) [id number]-Type Natriuretic Peptide 187 pg/mL (0-124) Total Protein 8.1 g/dL (6.4-8.2) Albumin 3.2 g/dL (3.4-5.0) Albumin/Globulin Ratio 0.7 (1.0-1.7) Lipase 138 U/L (73-393) Thyroid Stimulating Hormone (TSH) 1.349 uIU/mL (0.358-3.74) Free Thyroxine 1.04 ng/dL (0.76-1.46) Influenza Type A Antigen Negative (NEGATIVE) Influenza Type B Antigen Negative (NEGATIVE) Urine Collection Type Unknown Urine Color Yellow Urine Clarity Cloudy Urine pH 7.0 Urine Specific [place] >=1.030 Urine Protein Negative mg/dL (NEG-TRACE) Urine Glucose (UA) >=1000 mg/dL (NEG) Urine Ketones (Stick) Negative mg/dL (NEG) Urine Blood Negative (NEG) Urine Nitrite Negative (NEG) Urine Bilirubin Negative (NEG) Urine Urobilinogen Dipstick 1.0 mg/dL (0.2 mg/dL) Urine Leukocyte Esterase Negative (NEG) Urine RBC 0 /HPF (0-2) Urine WBC 0 /HPF (0-4) Urine Squamous Epithelial Cells Mod /LPF Urine Bacteria 0 /HPF (0-FEW) Urine Mucus Slight /LPF Urine Opiates Screen Neg (NEG) Urine Methadone Screen Neg (NEG) Urine Barbiturates Neg (NEG) Urine Phencyclidine Screen Neg (NEG) Urine Amphetamine/Methamphetamine Pos (NEG) Urine Benzodiazepines Screen Neg (NEG) Urine Cocaine Screen Neg (NEG) Urine Cannabinoids Screen Neg (NEG) Urine Ethyl Alcohol Neg (NEG) Bedside Urine HCG, Qualitative Hcg negative (Negative) Miscellaneous Test Comment (.) Test 05/08/18 22:00 05/09/18 03:20 Troponin I Quantitative < 0.017 ng/mL (0.000-0.055) White Blood Count 9.8 x10^3/uL (4.0-11.0) Red Blood Count 4.42 x10^6/uL (3.50-5.40) Hemoglobin 11.3 g/dL (12.0-15.5) Hematocrit 34.5 % (36.0-47.0) Mean Corpuscular Volume 78 fL (79-100) Mean Corpuscular Hemoglobin 26 pg (25-35) Mean Corpuscular Hemoglobin Concent 33 g/dL (31-37) Red Cell Distribution Width 16.8 % (11.5-14.5) Platelet Count 227 x10^3/uL (140-400) Neutrophils (%) (Auto) 71 % (31-73) Lymphocytes (%) (Auto) 17 % (24-48) Monocytes (%) (Auto) 10 % (0-9) Eosinophils (%) (Auto) 1 % (0-3) Basophils (%) (Auto) 1 % (0-3) Neutrophils # (Auto) 7.0 x10^3uL (1.8-7.7) Lymphocytes # (Auto) 1.6 x10^3/uL (1.0-4.8) Monocytes # (Auto) 1.0 x10^3/uL (0.0-1.1) Eosinophils # (Auto) 0.1 x10^3/uL (0.0-0.7) Basophils # (Auto) 0.1 x10^3/uL (0.0-0.2) Sodium Level 133 mmol/L (136-145) Potassium Level 4.2 mmol/L (3.5-5.1) Chloride Level 98 mmol/L (98-107) Carbon Dioxide Level 29 mmol/L (21-32) Anion Gap 6 (6-14) Blood Urea Nitrogen 5 mg/dL (7-20) Creatinine 0.8 mg/dL (0.6-1.0) Estimated GFR (Cockcroft-Gault) 76.2 Glucose Level 180 mg/dL (70-99) Calcium Level 8.4 mg/dL (8.5-10.1) Iron Level 45 ug/dL (50-170) Total Iron Binding Capacity 496 ug/dL (250-450) Iron Saturation 9 % (15-34) Ferritin 19 ng/mL (8-252) Triglycerides Level 79 mg/dL (0-150) Cholesterol Level 174 mg/dL (0-200) LDL Cholesterol, Calculated 113 mg/dL (0-100) VLDL Cholesterol, Calculated 16 mg/dL (0-40) Non-HDL Cholesterol Calculated 129 mg/dL (0-129) HDL Cholesterol 45 mg/dL (40-60) Cholesterol/HDL Ratio 3.9 Vitamin B12 Level 631 pg/mL (247-911) Medications Active Scripts Medications Dose Route/Sig Max Daily Dose Days Date Category Oxycodone-Acetaminophen 5-325 (Oxycodone Hcl/Acetaminophen) 1 Each Tablet 1 Tab PO PRN Q6HRS PRN 06/17/17 Rx Lisinopril 20 Mg Tablet 40 Mg PO DAILY 06/17/17 Rx Impression . IMPRESSION: 1. Generalized diffuse pain, could be related to methamphetamine withdrawal. No evidence of any pulmonary embolism. 2. 30 years of tobaccoism and suspect underlying chronic obstructive pulmonary disease without exacerbation. 3. Substance abuse. 4. Ongoing tobaccoism. Plan . 1. From a pulmonary standpoint, continue nebulizer treatments. 2. DVT prophylaxis. 3. Smoking cessation counseling provided. 4. Counseling regarding substance abuse was provided as well. 5. No further recommendations at this point. TYRONE CHAUHAN MD May 10, 2018 09:20
[2018-05-10] MEDS: traMADol 50 MG TABLET PO PRN ×2 (10:05→17:00)
--- NOTE | 2018-05-10 11:02 | PDOC ---
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 OCD ADHD H/O encephalitis Tobaccoism h/o drug abuse with marijuana, METH Mild malnutrition History of Present Illness History of Present Illness Pt seen and examined with RN Pt has a very unusual affect CO abd pain Vitals Vitals Vital Signs Date Time Temp Pulse Resp B/P (MAP) Pulse Ox O2 Delivery O2 Flow Rate FiO2 05/10/18 10:05 96 Room Air 05/10/18 08:53 109 186/102 05/10/18 07:52 98.6 18 98.6 Physical Exam General: Alert, Oriented X3, Cooperative, mild distress Heart: Regular rate, Normal S1, Normal S2, Other (2/6 systolic murmur ) Lungs: Clear Abdomen: Normal bowel sounds, Soft, Other (distended. tenderness upon palpation ) Extremities: No cyanosis, No edema, Normal pulses Skin: No significant lesion Labs LABS PROCEDURE: CT ABD PELV W/ IV CONTRST ONLY CTA CHEST, PE PROTOCOL, CT ABDOMEN AND PELVIS WITH CONTRAST Clinical Indication: Chest pain, shortness of air, abdominal pain COMPARISON: CT abdomen and pelvis dated 06/14/2017, chest radiograph dated 06/14/2017 TECHNIQUE: Multiple contiguous axial images were obtained throughout the chest, abdomen, and pelvis with the use of IV contrast. Chest images were obtained following PE protocol. Coronal and sagittal MIPS reconstructions were performed. Coronal and sagittal reconstructions of the abdomen and pelvis CT were also performed. 75 mL Omni 300 was administered. CTA Chest Findings: Limited evaluation of the distal pulmonary arterial system due to suboptimal distal contrast opacification. No evidence of central, lobar, or segmental pulmonary embolism. The thyroid is symmetric. Calcified mediastinal and right hilar lymph nodes related to remote granulomatous disease. There is no axillary, mediastinal, or hilar adenopathy. The thoracic aorta diameter is normal. The cardiac size is normal. There is no pericardial effusion. Right lower lobe linear opacities likely related to atelectasis or scarring. There is no suspicious pulmonary nodule. There is no focal consolidation. No pleural effusion is observed. There is no pneumothorax. Small tracheal diverticulum. The central airways are patent. CT Abdomen findings: The liver is enlarged measuring 19.2 cm. There again may be a microlobulated contour of the liver. The liver is otherwise normal. Contracted gallbladder. No radiopaque gallstone or pericholecystic fluid. The spleen is enlarged measuring 14.5 cm. The pancreas is normal in appearance. The adrenal glands are normal in appearance. The kidneys are unremarkable. There is no significant mesenteric or retroperitoneal adenopathy identified. There is no evidence of free intraperitoneal fluid or pneumoperitoneum. Mild colonic diverticulosis without evidence of diverticulitis. Visualized portions of the bowel are otherwise grossly unremarkable. Normal appendix. Mild atherosclerosis of the abdominal aorta and its branches. CT Pelvis findings: The bladder is underdistended limiting evaluation for wall thickening. Fluid within the endometrial canal. 2.7 x 2.4 cm left ovarian cyst. There is no significant pelvic ascites. No significant iliac or inguinal adenopathy is identified. No acute osseous abnormality. Mild multilevel degenerative changes of the visualized spine. IMPRESSION: 1. Limited evaluation of the distal pulmonary arterial system due to suboptimal distal contrast opacification. No evidence of central, lobar, or segmental pulmonary embolism. 2. No acute intrathoracic, intra-abdominal, or intrapelvic process identified. 3. Hepatosplenomegaly. Possible microlobular contour of the liver which can be seen with cirrhosis, similar to prior exam. 4. Fluid within the endometrial canal and 2.7 x 2.4 cm left ovarian cyst are most likely physiologic given patient's age. Right upper quadrant abdominal ultrasound, 05/09/2018: HISTORY: Right upper quadrant pain The gallbladder is within normal limits in size. There is no sonographic evidence of cholelithiasis. The gallbladder wall is not thickened. The common hepatic duct is of normal caliber. The liver is mildly enlarged measuring 19 cm in craniocaudad extent at the level the right lobe. There is no evidence of a hepatic mass. The visualized portions of the pancreas and right kidney are unremarkable. IMPRESSION: 1. Mild hepatomegaly. 2. No gallbladder abnormality is detected. Electronically signed by: Yobani Patten MD (05/10/2018 7:48 AM) [facility] DICTATED and SIGNED BY: YOBANI PATTEN MD DATE: 05/10/18 0745 Assessment and Plan Assessmemt and Plan Problems Medical Problems: (1) Abdominal pain Status: Acute (2) Chest pain Status: Acute Comment Review of Relevant I have reviewed the following items mary (where applicable) has been applied. Labs Laboratory Tests Test 05/08/18 14:38 05/08/18 15:07 05/08/18 15:36 05/08/18 16:26 White Blood Count 7.2 x10^3/uL (4.0-11.0) Red Blood Count 4.29 x10^6/uL (3.50-5.40) Hemoglobin 11.0 g/dL (12.0-15.5) Hematocrit 33.3 % (36.0-47.0) Mean Corpuscular Volume 78 fL (79-100) Mean Corpuscular Hemoglobin 26 pg (25-35) Mean Corpuscular Hemoglobin Concent 33 g/dL (31-37) Red Cell Distribution Width 16.1 % (11.5-14.5) Platelet Count 202 x10^3/uL (140-400) Neutrophils (%) (Auto) 74 % (31-73) Lymphocytes (%) (Auto) 17 % (24-48) Monocytes (%) (Auto) 8 % (0-9) Eosinophils (%) (Auto) 1 % (0-3) Basophils (%) (Auto) 0 % (0-3) Neutrophils # (Auto) 5.3 x10^3uL (1.8-7.7) Lymphocytes # (Auto) 1.2 x10^3/uL (1.0-4.8) Monocytes # (Auto) 0.6 x10^3/uL (0.0-1.1) Eosinophils # (Auto) 0.1 x10^3/uL (0.0-0.7) Basophils # (Auto) 0.0 x10^3/uL (0.0-0.2) Sodium Level 136 mmol/L (136-145) Potassium Level 3.7 mmol/L (3.5-5.1) Chloride Level 98 mmol/L (98-107) Carbon Dioxide Level 28 mmol/L (21-32) Anion Gap 10 (6-14) Blood Urea Nitrogen 7 mg/dL (7-20) Creatinine 0.9 mg/dL (0.6-1.0) Estimated GFR (Cockcroft-Gault) 66.5 BUN/Creatinine Ratio 8 (6-20) Glucose Level 216 mg/dL (70-99) Hemoglobin A1c 6.0 % (4.8-5.6) Lactic Acid Level 2.1 mmol/L (0.4-2.0) Calcium Level 8.7 mg/dL (8.5-10.1) Magnesium Level 1.7 mg/dL (1.8-2.4) Total Bilirubin 0.5 mg/dL (0.2-1.0) Aspartate Amino Transf (AST/SGOT) 60 U/L (15-37) Alanine Aminotransferase (ALT/SGPT) 86 U/L (14-59) Alkaline Phosphatase 115 U/L (46-116) Creatine Kinase 38 U/L (26-192) Creatine Kinase MB (Mass) 0.9 ng/mL (0.0-3.6) Creatine Kinase MB Relative Index 2.4 % (0-4) Troponin I Quantitative < 0.017 ng/mL (0.000-0.055) ME-Nup-B-Type Natriuretic Peptide 187 pg/mL (0-124) Total Protein 8.1 g/dL (6.4-8.2) Albumin 3.2 g/dL (3.4-5.0) Albumin/Globulin Ratio 0.7 (1.0-1.7) Lipase 138 U/L (73-393) Thyroid Stimulating Hormone (TSH) 1.349 uIU/mL (0.358-3.74) Free Thyroxine 1.04 ng/dL (0.76-1.46) Influenza Type A Antigen Negative (NEGATIVE) Influenza Type B Antigen Negative (NEGATIVE) Urine Collection Type Unknown Urine Color Yellow Urine Clarity Cloudy Urine pH 7.0 Urine Specific [place] >=1.030 Urine Protein Negative mg/dL (NEG-TRACE) Urine Glucose (UA) >=1000 mg/dL (NEG) Urine Ketones (Stick) Negative mg/dL (NEG) Urine Blood Negative (NEG) Urine Nitrite Negative (NEG) Urine Bilirubin Negative (NEG) Urine Urobilinogen Dipstick 1.0 mg/dL (0.2 mg/dL) Urine Leukocyte Esterase Negative (NEG) Urine RBC 0 /HPF (0-2) Urine WBC 0 /HPF (0-4) Urine Squamous Epithelial Cells Mod /LPF Urine Bacteria 0 /HPF (0-FEW) Urine Mucus Slight /LPF Urine Opiates Screen Neg (NEG) Urine Methadone Screen Neg (NEG) Urine Barbiturates Neg (NEG) Urine Phencyclidine Screen Neg (NEG) Urine Amphetamine/Methamphetamine Pos (NEG) Urine Benzodiazepines Screen Neg (NEG) Urine Cocaine Screen Neg (NEG) Urine Cannabinoids Screen Neg (NEG) Urine Ethyl Alcohol Neg (NEG) Bedside Urine HCG, Qualitative Hcg negative (Negative) Miscellaneous Test Comment (.) Test 05/08/18 22:00 05/09/18 03:20 Troponin I Quantitative < 0.017 ng/mL (0.000-0.055) White Blood Count 9.8 x10^3/uL (4.0-11.0) Red Blood Count 4.42 x10^6/uL (3.50-5.40) Hemoglobin 11.3 g/dL (12.0-15.5) Hematocrit 34.5 % (36.0-47.0) Mean Corpuscular Volume 78 fL (79-100) Mean Corpuscular Hemoglobin 26 pg (25-35) Mean Corpuscular Hemoglobin Concent 33 g/dL (31-37) Red Cell Distribution Width 16.8 % (11.5-14.5) Platelet Count 227 x10^3/uL (140-400) Neutrophils (%) (Auto) 71 % (31-73) Lymphocytes (%) (Auto) 17 % (24-48) Monocytes (%) (Auto) 10 % (0-9) Eosinophils (%) (Auto) 1 % (0-3) Basophils (%) (Auto) 1 % (0-3) Neutrophils # (Auto) 7.0 x10^3uL (1.8-7.7) Lymphocytes # (Auto) 1.6 x10^3/uL (1.0-4.8) Monocytes # (Auto) 1.0 x10^3/uL (0.0-1.1) Eosinophils # (Auto) 0.1 x10^3/uL (0.0-0.7) Basophils # (Auto) 0.1 x10^3/uL (0.0-0.2) Sodium Level 133 mmol/L (136-145) Potassium Level 4.2 mmol/L (3.5-5.1) Chloride Level 98 mmol/L (98-107) Carbon Dioxide Level 29 mmol/L (21-32) Anion Gap 6 (6-14) Blood Urea Nitrogen 5 mg/dL (7-20) Creatinine 0.8 mg/dL (0.6-1.0) Estimated GFR (Cockcroft-Gault) 76.2 Glucose Level 180 mg/dL (70-99) Calcium Level 8.4 mg/dL (8.5-10.1) Iron Level 45 ug/dL (50-170) Total Iron Binding Capacity 496 ug/dL (250-450) Iron Saturation 9 % (15-34) Ferritin 19 ng/mL (8-252) Triglycerides Level 79 mg/dL (0-150) Cholesterol Level 174 mg/dL (0-200) LDL Cholesterol, Calculated 113 mg/dL (0-100) VLDL Cholesterol, Calculated 16 mg/dL (0-40) Non-HDL Cholesterol Calculated 129 mg/dL (0-129) HDL Cholesterol 45 mg/dL (40-60) Cholesterol/HDL Ratio 3.9 Vitamin B12 Level 631 pg/mL (247-911) Medications Current Medications Morphine Sulfate (Morphine Sulfate) 4 mg PRN Q15MIN PRN IV/SQ PAIN GREATER THAN 3/10 Last administered on 05/08/18at 17:11; Start 05/08/18 at 14:30; Stop 05/09/18 at 14:29; Status DC Labetalol HCl (Normodyne Iv Push) 20 mg 1X ONCE IVP Last administered on 05/08at 14:57; Start 05/08/18 at 14:30; Stop 05/08/18 at 14:31; Status DC Nitroglycerin (Nitro-Bid Oint) 1 inch 1X ONCE TP Last administered on at 14:56; Start 05/08/18 at 14:30; Stop 05/08/18 at 14:31; Status DC Iohexol (Omnipaque 300 Mg/ml) 75 ml 1X ONCE IV Last administered on at 16:00; Start 05/08/18 at 14:45; Stop 05/08/18 at 14:46; Status DC Info (CONTRAST GIVEN -- Rx MONITORING) 1 each PRN DAILY PRN MC SEE COMMENTS; Start 05/08/18 at 14:45; Stop 05/10/18 at 14:44 Acetaminophen (Tylenol) 650 mg PRN Q6HRS PRN PO FEVER; Start 05/08/18 at 16:30 Ondansetron HCl (Zofran) 4 mg PRN Q6HRS PRN IV NAUSEA/VOMITING; Start at 16:30 Morphine Sulfate (Morphine Sulfate) 2 mg PRN Q2HR PRN IV MOD TO SEVERE PAIN, 1ST CHOICE Last administered on 05/10/18at 07:24; Start 05/08/18 at 16:30 Tramadol HCl (Ultram) 50 mg PRN Q6HRS PRN PO MILD TO MODERATE PAIN Last administered on 05/10/18at 10:05; Start 05/08/18 at 16:30 Docusate Sodium (Colace) 100 mg PRN DAILY PRN PO CONSTIPATION; Start 05/08/18 at 16:30 Labetalol HCl (Normodyne Iv Push) 20 mg PRN Q2HR PRN IVP HYPERTENSION, SEE COMMENTS; Start 05/08/18 at 16:30 Lisinopril (Prinivil) 40 mg DAILY PO Last administered on 05/10/18 08:53; Start 05/08/18 at 17:00 Amlodipine Besylate (Norvasc) 10 mg DAILY PO Last administered on 05/10/18at 08 :53; Start 05/08/18 at 17:00 Sodium Chloride 1,000 ml @ 100 mls/hr Q10H IV Last administered on 05/10/18 08:30; Start 05/08/18 at 16:30 Magnesium Sulfate 50 ml @ 25 mls/hr 1X ONCE IV Last administered on at 21:05; Start 05/08/18 at 16:45; Stop 05/08/18 at 18:44; Status DC Pantoprazole Sodium (Protonix) 40 mg DAILYAC PO Last administered on at 07:24; Start 05/09/18 at 07:30 Enoxaparin Sodium (Lovenox 40mg Syringe) 40 mg Q24H SQ Last administered on at 22:43; Start 05/08/18 at 21:00 Albuterol/ Ipratropium (Duoneb) 3 ml RTQID NEB Last administered on 05/10/18at 07:30; Start 05/08/18 at 16:30 Albuterol Sulfate (Ventolin Neb Soln) 2.5 mg PRN Q2HR PRN NEB SHORTNESS OF BREATH; Start 05/08/18 at 16:45 Guaifenesin (Mucinex) 600 mg BID PO Last administered on 05/10/18at 08:52; Start 05/08/18 at 21:00 Nicotine (Nicoderm Cq 21mg) 1 patch PRN DAILY PRN TD SMOKING CESSATION; Start 05/08/18 at 16:45; Stop 05/08/18 at 18:17; Status DC Nicotine (Nicoderm Cq 21mg) 1 patch DAILY TD Last administered on 05/09/18at 09 :11; Start 05/08/18 at 18:30 Fentanyl Citrate (Fentanyl 2ml Vial) 50 mcg PRN Q2HR PRN IV MOD TO SEVERE PAIN , 2ND CHOICE Last administered on 05/09/18at 22:42; Start 05/09/18 at 02:30 Lisinopril (Prinivil) 5 mg DAILY PO ; Start 05/10/18 at 09:00; Status UNV Active Scripts Active Oxycodone-Acetaminophen 5-325 (Oxycodone Hcl/Acetaminophen) 1 Each Tablet 1 Tab PO PRN Q6HRS PRN Lisinopril 20 Mg Tablet 40 Mg PO DAILY Vitals/I & O Vital Sign - Last 24 Hours 05/09/18 05/09/18 05/09/18 05/09/18 11:54 13:19 15:00 15:34 Temp 98.6 98.6 Pulse 99 Resp 20 20 20 B/P (MAP) 157/87 (110) Pulse Ox 92 95 O2 Delivery Room Air Room Air Room Air Room Air 05/09/18 05/09/18 05/09/18 05/09/18 16:03 18:13 18:43 19:00 Temp 97.7 97.7 Pulse 105 Resp 20 18 18 B/P (MAP) 145/77 (99) Pulse Ox 92 93 O2 Delivery Room Air Room Air Room Air 05/09/18 05/09/18 05/09/18 05/09/18 19:33 19:36 20:00 22:42 Pulse Ox 95 O2 Delivery Room Air Room Air Room Air Room Air 05/09/18 05/09/18 05/10/18 05/10/18 23:00 23:13 00:25 03:00 Temp 98.2 96.4 98.2 96.4 Pulse 84 96 Resp 18 18 B/P (MAP) 145/74 (97) 140/73 (95) Pulse Ox 93 93 O2 Delivery Room Air Room Air Room Air Room Air 05/10/18 05/10/18 05/10/18 05/10/18 03:07 05:24 07:24 07:31 Pulse Ox 93 96 O2 Delivery Room Air Room Air Room Air Room Air 05/10/18 05/10/18 05/10/18 05/10/18 07:52 08:53 08:53 08:58 Temp 98.6 98.6 Pulse 109 109 109 Resp 18 B/P (MAP) 186/102 (130) 186/102 186/102 Pulse Ox 96 96 O2 Delivery Room Air Room Air 05/10/18 10:05 Pulse Ox 96 O2 Delivery Room Air Intake and Output 05/09/18 05/09/18 05/10/18 15:00 23:00 07:00 Intake Total 1540 ml Balance 1540 ml DEMARCUS RODRIGUEZ MD May 10, 2018 11:02
[2018-05-10 11:17] VITALS: BP 158/87
[2018-05-10] MEDS: fentaNYL PF VIAL 100 MCG/2 ML VIAL IV PRN ×2 (12:30→21:41)
--- NOTE | 2018-05-10 14:03 | PDOC ---
G I PROGRESS NOTE Subjective Primarily right-sided pain. From neck to hip with headache and "pleuritic" pain. Physical Exam Lungs clear. RRR Abdomen soft, not distended. Seems rectus muscular tenderness. Right costal margin tenderness. Muscular right-sided tenderness. Review of Relevant I have reviewed the following items mary (where applicable) has been applied. Labs Laboratory Tests Test 05/08/18 14:38 05/08/18 15:07 05/08/18 15:36 05/08/18 16:26 White Blood Count 7.2 x10^3/uL (4.0-11.0) Red Blood Count 4.29 x10^6/uL (3.50-5.40) Hemoglobin 11.0 g/dL (12.0-15.5) Hematocrit 33.3 % (36.0-47.0) Mean Corpuscular Volume 78 fL (79-100) Mean Corpuscular Hemoglobin 26 pg (25-35) Mean Corpuscular Hemoglobin Concent 33 g/dL (31-37) Red Cell Distribution Width 16.1 % (11.5-14.5) Platelet Count 202 x10^3/uL (140-400) Neutrophils (%) (Auto) 74 % (31-73) Lymphocytes (%) (Auto) 17 % (24-48) Monocytes (%) (Auto) 8 % (0-9) Eosinophils (%) (Auto) 1 % (0-3) Basophils (%) (Auto) 0 % (0-3) Neutrophils # (Auto) 5.3 x10^3uL (1.8-7.7) Lymphocytes # (Auto) 1.2 x10^3/uL (1.0-4.8) Monocytes # (Auto) 0.6 x10^3/uL (0.0-1.1) Eosinophils # (Auto) 0.1 x10^3/uL (0.0-0.7) Basophils # (Auto) 0.0 x10^3/uL (0.0-0.2) Sodium Level 136 mmol/L (136-145) Potassium Level 3.7 mmol/L (3.5-5.1) Chloride Level 98 mmol/L (98-107) Carbon Dioxide Level 28 mmol/L (21-32) Anion Gap 10 (6-14) Blood Urea Nitrogen 7 mg/dL (7-20) Creatinine 0.9 mg/dL (0.6-1.0) Estimated GFR (Cockcroft-Gault) 66.5 BUN/Creatinine Ratio 8 (6-20) Glucose Level 216 mg/dL (70-99) Hemoglobin A1c 6.0 % (4.8-5.6) Lactic Acid Level 2.1 mmol/L (0.4-2.0) Calcium Level 8.7 mg/dL (8.5-10.1) Magnesium Level 1.7 mg/dL (1.8-2.4) Total Bilirubin 0.5 mg/dL (0.2-1.0) Aspartate Amino Transf (AST/SGOT) 60 U/L (15-37) Alanine Aminotransferase (ALT/SGPT) 86 U/L (14-59) Alkaline Phosphatase 115 U/L (46-116) Creatine Kinase 38 U/L (26-192) Creatine Kinase MB (Mass) 0.9 ng/mL (0.0-3.6) Creatine Kinase MB Relative Index 2.4 % (0-4) Troponin I Quantitative < 0.017 ng/mL (0.000-0.055) YG-Tvl-G-Type Natriuretic Peptide 187 pg/mL (0-124) Total Protein 8.1 g/dL (6.4-8.2) Albumin 3.2 g/dL (3.4-5.0) Albumin/Globulin Ratio 0.7 (1.0-1.7) Lipase 138 U/L (73-393) Thyroid Stimulating Hormone (TSH) 1.349 uIU/mL (0.358-3.74) Free Thyroxine 1.04 ng/dL (0.76-1.46) Influenza Type A Antigen Negative (NEGATIVE) Influenza Type B Antigen Negative (NEGATIVE) Urine Collection Type Unknown Urine Color Yellow Urine Clarity Cloudy Urine pH 7.0 Urine Specific Perryman >=1.030 Urine Protein Negative mg/dL (NEG-TRACE) Urine Glucose (UA) >=1000 mg/dL (NEG) Urine Ketones (Stick) Negative mg/dL (NEG) Urine Blood Negative (NEG) Urine Nitrite Negative (NEG) Urine Bilirubin Negative (NEG) Urine Urobilinogen Dipstick 1.0 mg/dL (0.2 mg/dL) Urine Leukocyte Esterase Negative (NEG) Urine RBC 0 /HPF (0-2) Urine WBC 0 /HPF (0-4) Urine Squamous Epithelial Cells Mod /LPF Urine Bacteria 0 /HPF (0-FEW) Urine Mucus Slight /LPF Urine Opiates Screen Neg (NEG) Urine Methadone Screen Neg (NEG) Urine Barbiturates Neg (NEG) Urine Phencyclidine Screen Neg (NEG) Urine Amphetamine/Methamphetamine Pos (NEG) Urine Benzodiazepines Screen Neg (NEG) Urine Cocaine Screen Neg (NEG) Urine Cannabinoids Screen Neg (NEG) Urine Ethyl Alcohol Neg (NEG) Bedside Urine HCG, Qualitative Hcg negative (Negative) Miscellaneous Test Comment (.) Test 05/08/18 22:00 05/09/18 03:20 Troponin I Quantitative < 0.017 ng/mL (0.000-0.055) White Blood Count 9.8 x10^3/uL (4.0-11.0) Red Blood Count 4.42 x10^6/uL (3.50-5.40) Hemoglobin 11.3 g/dL (12.0-15.5) Hematocrit 34.5 % (36.0-47.0) Mean Corpuscular Volume 78 fL (79-100) Mean Corpuscular Hemoglobin 26 pg (25-35) Mean Corpuscular Hemoglobin Concent 33 g/dL (31-37) Red Cell Distribution Width 16.8 % (11.5-14.5) Platelet Count 227 x10^3/uL (140-400) Neutrophils (%) (Auto) 71 % (31-73) Lymphocytes (%) (Auto) 17 % (24-48) Monocytes (%) (Auto) 10 % (0-9) Eosinophils (%) (Auto) 1 % (0-3) Basophils (%) (Auto) 1 % (0-3) Neutrophils # (Auto) 7.0 x10^3uL (1.8-7.7) Lymphocytes # (Auto) 1.6 x10^3/uL (1.0-4.8) Monocytes # (Auto) 1.0 x10^3/uL (0.0-1.1) Eosinophils # (Auto) 0.1 x10^3/uL (0.0-0.7) Basophils # (Auto) 0.1 x10^3/uL (0.0-0.2) Sodium Level 133 mmol/L (136-145) Potassium Level 4.2 mmol/L (3.5-5.1) Chloride Level 98 mmol/L (98-107) Carbon Dioxide Level 29 mmol/L (21-32) Anion Gap 6 (6-14) Blood Urea Nitrogen 5 mg/dL (7-20) Creatinine 0.8 mg/dL (0.6-1.0) Estimated GFR (Cockcroft-Gault) 76.2 Glucose Level 180 mg/dL (70-99) Calcium Level 8.4 mg/dL (8.5-10.1) Iron Level 45 ug/dL (50-170) Total Iron Binding Capacity 496 ug/dL (250-450) Iron Saturation 9 % (15-34) Ferritin 19 ng/mL (8-252) Triglycerides Level 79 mg/dL (0-150) Cholesterol Level 174 mg/dL (0-200) LDL Cholesterol, Calculated 113 mg/dL (0-100) VLDL Cholesterol, Calculated 16 mg/dL (0-40) Non-HDL Cholesterol Calculated 129 mg/dL (0-129) HDL Cholesterol 45 mg/dL (40-60) Cholesterol/HDL Ratio 3.9 Vitamin B12 Level 631 pg/mL (247-911) Vitals/I & O Vital Sign - Last 24 Hours 05/09/18 05/09/18 05/09/18 05/09/18 15:00 15:34 16:03 18:13 Temp 98.6 98.6 Pulse 99 Resp 20 20 20 B/P (MAP) 157/87 (110) Pulse Ox 95 92 O2 Delivery Room Air Room Air Room Air Room Air 05/09/18 05/09/18 05/09/18 05/09/18 18:43 19:00 19:33 19:36 Temp 97.7 97.7 Pulse 105 Resp 18 18 B/P (MAP) 145/77 (99) Pulse Ox 93 95 O2 Delivery Room Air Room Air Room Air 05/09/18 05/09/18 05/09/18 05/09/18 20:00 22:42 23:00 23:13 Temp 98.2 98.2 Pulse 84 Resp 18 B/P (MAP) 145/74 (97) Pulse Ox 93 O2 Delivery Room Air Room Air Room Air Room Air 05/10/18 05/10/18 05/10/18 05/10/18 00:25 03:00 03:07 05:24 Temp 96.4 96.4 Pulse 96 Resp 18 B/P (MAP) 140/73 (95) Pulse Ox 93 O2 Delivery Room Air Room Air Room Air Room Air 05/10/18 05/10/18 05/10/18 05/10/18 07:24 07:31 07:52 08:00 Temp 98.6 98.6 Pulse 109 Resp 18 B/P (MAP) 186/102 (130) Pulse Ox 93 96 96 O2 Delivery Room Air Room Air Room Air Room Air 05/10/18 05/10/18 05/10/18 05/10/18 08:53 08:53 08:58 10:05 Pulse 109 109 B/P (MAP) 186/102 186/102 Pulse Ox 96 96 O2 Delivery Room Air Room Air 05/10/18 05/10/18 05/10/18 05/10/18 11:14 11:17 11:22 12:30 Temp 99.1 99.1 Pulse 104 Resp 18 B/P (MAP) 158/87 (110) Pulse Ox 96 94 92 O2 Delivery Room Air Room Air Room Air Room Air Intake and Output 05/09/18 05/09/18 05/10/18 15:00 23:00 07:00 Intake Total 1540 ml Balance 1540 ml Problem List Problems Medical Problems: (1) Abdominal pain Status: Acute (2) Chest pain Status: Acute Assessment Pain seems not GI-related. Positive Hep C antibody--unable to order PCR for confirmation. JORGE--present before and not progressive. Cause unclear. Note stool FOBT ordered. Plan of Care Note Symptomatic treatment. Await stool FOBT. Will try to order HCV confirmation again. OPAL NESS MD May 10, 2018 14:03
[2018-05-10 15:00] VITALS: BP 172/94
[2018-05-10 19:00] VITALS: BP 174/90
[2018-05-10] MEDS: ENOXAPARIN 40 MG/0.4 ML SYRINGE. SQ SCH (21:42)
[2018-05-10 23:00] VITALS: BP 157/87
[2018-05-11] MEDS: traMADol 50 MG TABLET PO PRN ×2 (01:57→08:51)
[2018-05-11 03:00] VITALS: BP 129/80
[2018-05-11] MEDS: IV NORMAL SALINE 1000ML BAG 1,000 ML IV SCH (04:11)
[2018-05-11 07:00] VITALS: BP 153/79
[2018-05-11] MEDS: IPRATRPIUM/ALBUTEROL 0.5/2.5MG 3 ML NEBU. NEB SCH ×3 (07:12→15:21)
[2018-05-11] MEDS: PANTOPRAZOLE 40 MG TABLET.DR. PO SCH ×2 (07:30→08:51)
[2018-05-11] MEDS: LISINOPRIL 20 MG TABLET PO SCH (08:50)
[2018-05-11] MEDS: NICOTINE 21MG PATCH. TD SCH (08:52)
[2018-05-11] MEDS: amLODIPine BESYLATE 10 MG TABLET PO SCH (08:52)
--- NOTE | 2018-05-11 09:04 | PDOC ---
Subjective: Subjective: She wants to know why she has pain in her head and her chest and her arms and her shoulder. Tolerating PO. Hasn't stooled. Objective: Vital Signs: Vital Signs Date Time Temp Pulse Resp B/P (MAP) Pulse Ox O2 Delivery O2 Flow Rate FiO2 05/11/18 08:52 87 176/92 05/11/18 08:51 18 Room Air 05/11/18 07:13 95 05/11/18 07:00 97.4 97.4 PE: GEN: NAD, up to chair, breakfast tray completely empty LUNGS: productive cough HEART: RRR ABD: non-tender NEURO/PSYCH: A & O 3 A/P: Pain - diffuse, seems MSK JORGE - no previous 'scopes +Hep C Ab - AST and ALT mildly elevated on admission, hepatosplenomegaly on imaging -- Add Miralax, Dulcolax if she wants. Could pursue outpt EGD and colonoscopy. AIDE SANDY May 11, 2018 09:04
--- NOTE | 2018-05-11 09:07 | PDOC2 ---
GI CONSULT Allergies: Coded Allergies: No Known Drug Allergies (Unverified , 06/14/17) AIDE SANDY May 11, 2018 09:07
--- NOTE | 2018-05-11 10:20 | PDOC ---
PULMONARY PROGRESS NOTES Subjective PT NOT MORE SOA Vitals Vital Signs Date Time Temp Pulse Resp B/P (MAP) Pulse Ox O2 Delivery O2 Flow Rate FiO2 05/11/18 08:52 87 176/92 05/11/18 08:51 18 Room Air 05/11/18 07:13 95 05/11/18 07:00 97.4 97.4 Lungs: Clear Cardiovascular: S1, S2 Abdomen: Soft Neuro Exam: Alert Extremities: No Edema Skin: Warm Medications Active Scripts Medications Dose Route/Sig Max Daily Dose Days Date Category Oxycodone-Acetaminophen 5-325 (Oxycodone Hcl/Acetaminophen) 1 Each Tablet 1 Tab PO PRN Q6HRS PRN 06/17/17 Rx Lisinopril 20 Mg Tablet 40 Mg PO DAILY 06/17/17 Rx Impression . IMPRESSION: 1. Generalized diffuse pain, could be related to methamphetamine withdrawal. No evidence of any pulmonary embolism. 2. 30 years of tobaccoism and suspect underlying chronic obstructive pulmonary disease without exacerbation. 3. Substance abuse. 4. Ongoing tobaccoism. Plan . D/C HOME' PT INSTRUCTED TO D/C ALL DRUGS AND TOBACCO TYRONE CHAUHAN MD May 11, 2018 10:20
--- NOTE | 2018-05-11 10:30 | PDOC ---
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 OCD ADHD H/O encephalitis Tobaccoism h/o drug abuse with marijuana, METH Mild malnutrition History of Present Illness History of Present Illness Pt seen and examined with RN Pt has a very unusual affect CO abd pain Vitals Vitals Vital Signs Date Time Temp Pulse Resp B/P (MAP) Pulse Ox O2 Delivery O2 Flow Rate FiO2 05/11/18 09:51 16 Room Air 05/11/18 08:52 87 176/92 05/11/18 07:13 95 05/11/18 07:00 97.4 97.4 Physical Exam General: Alert, Oriented X3, Cooperative, mild distress Heart: Regular rate, Normal S1, Normal S2, Other (2/6 systolic murmur ) Lungs: Clear Abdomen: Normal bowel sounds, Soft, Other (distended. tenderness upon palpation ) Extremities: No cyanosis, No edema, Normal pulses Skin: No significant lesion Assessment and Plan Assessmemt and Plan Problems Medical Problems: (1) Abdominal pain Status: Acute (2) Chest pain Status: Acute Comment Review of Relevant I have reviewed the following items mary (where applicable) has been applied. Medications Current Medications Morphine Sulfate (Morphine Sulfate) 4 mg PRN Q15MIN PRN IV/SQ PAIN GREATER THAN 3/10 Last administered on 05/08/18at 17:11; Start 05/08/18 at 14:30; Stop 05/09/18 at 14:29; Status DC Labetalol HCl (Normodyne Iv Push) 20 mg 1X ONCE IVP Last administered on 05/08at 14:57; Start 05/08/18 at 14:30; Stop 05/08/18 at 14:31; Status DC Nitroglycerin (Nitro-Bid Oint) 1 inch 1X ONCE TP Last administered on at 14:56; Start 05/08/18 at 14:30; Stop 05/08/18 at 14:31; Status DC Iohexol (Omnipaque 300 Mg/ml) 75 ml 1X ONCE IV Last administered on at 16:00; Start 05/08/18 at 14:45; Stop 05/08/18 at 14:46; Status DC Info (CONTRAST GIVEN -- Rx MONITORING) 1 each PRN DAILY PRN MC SEE COMMENTS; Start 05/08/18 at 14:45; Stop 05/10/18 at 14:44; Status DC Acetaminophen (Tylenol) 650 mg PRN Q6HRS PRN PO FEVER; Start 05/08/18 at 16:30 Ondansetron HCl (Zofran) 4 mg PRN Q6HRS PRN IV NAUSEA/VOMITING; Start at 16:30 Morphine Sulfate (Morphine Sulfate) 2 mg PRN Q2HR PRN IV MOD TO SEVERE PAIN, 1ST CHOICE Last administered on 05/10/18at 07:24; Start 05/08/18 at 16:30 Tramadol HCl (Ultram) 50 mg PRN Q6HRS PRN PO MILD TO MODERATE PAIN Last administered on 05/11/18at 08:51; Start 05/08/18 at 16:30 Docusate Sodium (Colace) 100 mg PRN DAILY PRN PO CONSTIPATION; Start 05/08/18 at 16:30 Labetalol HCl (Normodyne Iv Push) 20 mg PRN Q2HR PRN IVP HYPERTENSION, SEE COMMENTS; Start 05/08/18 at 16:30 Lisinopril (Prinivil) 40 mg DAILY PO Last administered on 05/11/18at 08:50; Start 05/08/18 at 17:00 Amlodipine Besylate (Norvasc) 10 mg DAILY PO Last administered on 05/11/18at 08 :52; Start 05/08/18 at 17:00 Sodium Chloride 1,000 ml @ 100 mls/hr Q10H IV Last administered on 05/11/18at 04:11; Start 05/08/18 at 16:30 Magnesium Sulfate 50 ml @ 25 mls/hr 1X ONCE IV Last administered on at 21:05; Start 05/08/18 at 16:45; Stop 05/08/18 at 18:44; Status DC Pantoprazole Sodium (Protonix) 40 mg DAILYAC PO Last administered on at 08:51; Start 05/09/18 at 07:30 Enoxaparin Sodium (Lovenox 40mg Syringe) 40 mg Q24H SQ Last administered on at 21:42; Start 05/08/18 at 21:00 Albuterol/ Ipratropium (Duoneb) 3 ml RTQID NEB Last administered on 05/11/18at 07:12; Start 05/08/18 at 16:30 Albuterol Sulfate (Ventolin Neb Soln) 2.5 mg PRN Q2HR PRN NEB SHORTNESS OF BREATH; Start 05/08/18 at 16:45 Guaifenesin (Mucinex) 600 mg BID PO Last administered on 05/11/18at 08:52; Start 05/08/18 at 21:00 Nicotine (Nicoderm Cq 21mg) 1 patch PRN DAILY PRN TD SMOKING CESSATION; Start 05/08/18 at 16:45; Stop 05/08/18 at 18:17; Status DC Nicotine (Nicoderm Cq 21mg) 1 patch DAILY TD Last administered on 05/09/18at 09 :11; Start 05/08/18 at 18:30 Fentanyl Citrate (Fentanyl 2ml Vial) 50 mcg PRN Q2HR PRN IV MOD TO SEVERE PAIN , 2ND CHOICE Last administered on 05/09/18at 22:42; Start 05/09/18 at 02:30; Stop 05/10/18 at 11:24; Status DC Lisinopril (Prinivil) 5 mg DAILY PO ; Start 05/10/18 at 09:00; Status UNV Fentanyl Citrate (Fentanyl 2ml Vial) 50 mcg PRN Q4HRS PRN IV MOD TO SEVERE PAIN , 2ND CHOICE Last administered on 05/10/18at 21:41; Start 05/10/18 at 11:30 Active Scripts Active Oxycodone-Acetaminophen 5-325 (Oxycodone Hcl/Acetaminophen) 1 Each Tablet 1 Tab PO PRN Q6HRS PRN Lisinopril 20 Mg Tablet 40 Mg PO DAILY Vitals/I & O Vital Sign - Last 24 Hours 05/10/18 05/10/18 05/10/18 05/10/18 11:17 11:22 12:30 15:00 Temp 99.1 100.2 99.1 100.2 Pulse 104 110 Resp 18 18 B/P (MAP) 158/87 (110) 172/94 (120) Pulse Ox 94 92 95 O2 Delivery Room Air Room Air Room Air Room Air 05/10/18 05/10/18 05/10/18 05/10/18 15:12 17:00 19:00 20:00 Temp 99.0 99.0 Pulse 108 Resp 18 B/P (MAP) 174/90 (118) Pulse Ox 92 92 98 O2 Delivery Room Air Room Air Room Air Room Air 05/10/18 05/10/18 05/10/18 05/10/18 20:33 21:41 22:21 23:00 Temp 98.2 98.2 Pulse 97 Resp 18 18 18 B/P (MAP) 157/87 (110) Pulse Ox 98 98 95 O2 Delivery Room Air Room Air Room Air Room Air 05/11/18 05/11/18 05/11/18 05/11/18 01:57 02:57 03:00 07:00 Temp 98.9 97.4 98.9 97.4 Pulse 84 95 Resp 18 18 18 B/P (MAP) 129/80 (96) 153/79 (103) Pulse Ox 95 95 95 95 O2 Delivery Room Air Room Air 05/11/18 05/11/18 05/11/18 05/11/18 07:13 08:50 08:51 08:52 Pulse 87 87 Resp 18 B/P (MAP) 176/92 176/92 Pulse Ox 95 O2 Delivery Room Air Room Air 05/11/18 09:51 Resp 16 O2 Delivery Room Air Intake and Output 05/10/18 05/10/18 05/11/18 15:00 23:00 07:00 Intake Total 1300 ml Balance 1300 ml DEMARCUS RODRIGUEZ MD May 11, 2018 10:30
[2018-05-11 11:00] VITALS: BP 172/83
--- NOTE | 2018-05-11 14:10 | PDOC3 ---
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 OCD ADHD H/O encephalitis Tobaccoism h/o drug abuse with marijuana, METH Mild malnutrition History of Present Illness History of Present Illness Pt seen and examined with RN Pt has a very unusual affect Vitals Vitals Vital Signs Date Time Temp Pulse Resp B/P (MAP) Pulse Ox O2 Delivery O2 Flow Rate FiO2 05/11/18 09:51 16 Room Air 05/11/18 08:52 87 176/92 05/11/18 07:13 95 05/11/18 07:00 97.4 97.4 Physical Exam General: Alert, Oriented X3, Cooperative, mild distress Heart: Regular rate, Normal S1, Normal S2, Other (2/6 systolic murmur ) Lungs: Clear Abdomen: Normal bowel sounds, Soft, Other (distended. tenderness upon palpation ) Extremities: No cyanosis, No edema, Normal pulses Skin: No significant lesion FINAL DIAGNOSIS Problems Medical Problems: (1) Abdominal pain Status: Acute (2) Chest pain Status: Acute Brief Hospital Course Ms. Casas is a 48 old [sex] who presented with [meth abuse ] CONDITION AT DISCHARGE: Improved Discharge Medications Current Medications Morphine Sulfate (Morphine Sulfate) 4 mg PRN Q15MIN PRN IV/SQ PAIN GREATER THAN 3/10 Last administered on 05/08/18at 17:11; Start 05/08/18 at 14:30; Stop 05/09/18 at 14:29; Status DC Labetalol HCl (Normodyne Iv Push) 20 mg 1X ONCE IVP Last administered on 05/08at 14:57; Start 05/08/18 at 14:30; Stop 05/08/18 at 14:31; Status DC Nitroglycerin (Nitro-Bid Oint) 1 inch 1X ONCE TP Last administered on at 14:56; Start 05/08/18 at 14:30; Stop 05/08/18 at 14:31; Status DC Iohexol (Omnipaque 300 Mg/ml) 75 ml 1X ONCE IV Last administered on at 16:00; Start 05/08/18 at 14:45; Stop 05/08/18 at 14:46; Status DC Info (CONTRAST GIVEN -- Rx MONITORING) 1 each PRN DAILY PRN MC SEE COMMENTS; Start 05/08/18 at 14:45; Stop 05/10/18 at 14:44; Status DC Acetaminophen (Tylenol) 650 mg PRN Q6HRS PRN PO FEVER; Start 05/08/18 at 16:30 Ondansetron HCl (Zofran) 4 mg PRN Q6HRS PRN IV NAUSEA/VOMITING; Start at 16:30 Morphine Sulfate (Morphine Sulfate) 2 mg PRN Q2HR PRN IV MOD TO SEVERE PAIN, 1ST CHOICE Last administered on 05/10/18at 07:24; Start 05/08/18 at 16:30 Tramadol HCl (Ultram) 50 mg PRN Q6HRS PRN PO MILD TO MODERATE PAIN Last administered on 05/11/18at 08:51; Start 05/08/18 at 16:30 Docusate Sodium (Colace) 100 mg PRN DAILY PRN PO CONSTIPATION; Start 05/08/18 at 16:30 Labetalol HCl (Normodyne Iv Push) 20 mg PRN Q2HR PRN IVP HYPERTENSION, SEE COMMENTS; Start 05/08/18 at 16:30 Lisinopril (Prinivil) 40 mg DAILY PO Last administered on 05/11/18at 08:50; Start 05/08/18 at 17:00 Amlodipine Besylate (Norvasc) 10 mg DAILY PO Last administered on 05/11/18at 08 :52; Start 05/08/18 at 17:00 Sodium Chloride 1,000 ml @ 100 mls/hr Q10H IV Last administered on 05/11/18at 04:11; Start 05/08/18 at 16:30 Magnesium Sulfate 50 ml @ 25 mls/hr 1X ONCE IV Last administered on at 21:05; Start 05/08/18 at 16:45; Stop 05/08/18 at 18:44; Status DC Pantoprazole Sodium (Protonix) 40 mg DAILYAC PO Last administered on at 08:51; Start 05/09/18 at 07:30 Enoxaparin Sodium (Lovenox 40mg Syringe) 40 mg Q24H SQ Last administered on at 21:42; Start 05/08/18 at 21:00 Albuterol/ Ipratropium (Duoneb) 3 ml RTQID NEB Last administered on 05/11/18at 11:17; Start 05/08/18 at 16:30 Albuterol Sulfate (Ventolin Neb Soln) 2.5 mg PRN Q2HR PRN NEB SHORTNESS OF BREATH; Start 05/08/18 at 16:45 Guaifenesin (Mucinex) 600 mg BID PO Last administered on 05/11/18at 08:52; Start 05/08/18 at 21:00 Nicotine (Nicoderm Cq 21mg) 1 patch PRN DAILY PRN TD SMOKING CESSATION; Start 05/08/18 at 16:45; Stop 05/08/18 at 18:17; Status DC Nicotine (Nicoderm Cq 21mg) 1 patch DAILY TD Last administered on 05/09/18at 09 :11; Start 05/08/18 at 18:30 Fentanyl Citrate (Fentanyl 2ml Vial) 50 mcg PRN Q2HR PRN IV MOD TO SEVERE PAIN , 2ND CHOICE Last administered on 05/09/18at 22:42; Start 05/09/18 at 02:30; Stop 05/10/18 at 11:24; Status DC Lisinopril (Prinivil) 5 mg DAILY PO ; Start 05/10/18 at 09:00; Status UNV Fentanyl Citrate (Fentanyl 2ml Vial) 50 mcg PRN Q4HRS PRN IV MOD TO SEVERE PAIN , 2ND CHOICE Last administered on 05/10/18at 21:41; Start 05/10/18 at 11:30 Active Scripts Active Oxycodone-Acetaminophen 5-325 (Oxycodone Hcl/Acetaminophen) 1 Each Tablet 1 Tab PO PRN Q6HRS PRN Lisinopril 20 Mg Tablet 40 Mg PO DAILY Vital Signs Vital Signs Date Time Temp Pulse Resp B/P (MAP) Pulse Ox O2 Delivery O2 Flow Rate FiO2 05/11/18 11:18 Room Air 05/11/18 11:00 98.7 96 18 172/83 (112) 94 98.7 Allergies Allergies Coded Allergies Type Severity Reaction Last Updated Verified No Known Drug Allergies 06/14/17 No Disposition/Orders: D/C to Home Patient Instructions d/c planning 35 min FULBRIGHT,DEMARCUS W MD May 11, 2018 14:10
--- NOTE | 2018-05-11 14:11 | DISCH ---
DISCHARGE INSTRUCTIONS Condition on Discharge Condition on Discharge: Stable Activity After Discharge Activity Instructions for Disc: No restrictions, Activity as tolerated Exercise Instruction after Dis: Walk 10 min, 3 x per day Driving Instructions after Dis: Do not drive Weight Bearing Status after Di: No restrictions Diet after Discharge Diet after Discharge: No Added Salt, Regular Wound Incision Care Wound/Incision Care: Ice to area for comfort Checks after Discharge Checks after discharge: Check blood press - daily Contacting the DR. after DC Call your doctor for: If your condition worsens Treatment/Equipment after DC Adaptive Equipment Issued: None Warfarin Follow-Up Warfarin Follow UP: no meth or thc use DEMARCUS RODRIGUEZ MD May 11, 2018 14:11
[2018-05-11] MEDS ORDERED: AMLO10TA6 PO (14:14)
[2018-05-11] MEDS ORDERED: Pantoprazole PO (14:14)
[2018-05-11 15:00] VITALS: BP 162/69
== END 2018-05-11 19:49 | disposition home or self-care (01) | DRG 194 ==
LOC: ER 14:05 → 5 NORTH 16:10
PROVIDERS: ADMIT Internal Medicine; ATTEND Internal Medicine
DX: R09.1 Pleurisy (principal); F11.23 Opioid dependence with withdrawal; K92.1 Melena; E44.1 Mild protein-calorie malnutrition; I16.0 Hypertensive urgency; K74.60 Unspecified cirrhosis of liver; F17.210 Nicotine dependence, cigarettes, uncomplicated; I10 Essential (primary) hypertension; D64.9 Anemia, unspecified; F42.9 Obsessive-compulsive disorder, unspecified; F90.9 Attention-deficit hyperactivity disorder, unspecified type; F12.10 Cannabis abuse, uncomplicated; E83.42 Hypomagnesemia; F32.9 Major depressive disorder, single episode, unspecified; F41.9 Anxiety disorder, unspecified; B19.20 Unspecified viral hepatitis C without hepatic coma; K21.9 Gastro-esophageal reflux disease without esophagitis; M19.90 Unspecified osteoarthritis, unspecified site; R01.1 Cardiac murmur, unspecified; F15.10 Other stimulant abuse, uncomplicated; Z83.3 Family history of diabetes mellitus; Z82.49 Family history of ischemic heart disease and other diseases of the circulatory system; Z68.39 Body mass index [BMI] 39.0-39.9, adult; Z80.9 Family history of malignant neoplasm, unspecified; Z71.89 Other specified counseling; Z86.61 Personal history of infections of the central nervous system
CPT/HCPCS: 36415; 70450; 71045; 71275; 74177; 76705; 80048; 80053; 80061; 80307; 81001; 81025; 82553; 82607; 82728; 83036; 83540; 83550; 83605; 83690; 83735; 83880; 84439; 84443; 84484; 85025; 87804; 93005; 93306; 94640; 94760; 96374; J1650; J2270; J3010; J3475; J3490; J7030; J7620; Q9967; 99285-25; G0479

== ENCOUNTER 2019-03-25 00:04 | Emergency (ER) | payer SELFPAY ==
[~2019-03-25] VITALS: Ht 157.5 cm; Wt 99.8 kg
[~2019-03-25 00:04] MED LIST changes: +AMLO10TA8 PO; +Pantoprazole PO
[2019-03-25] MEDS ORDERED: IV NORMAL SALINE 1000ML BAG 1,000 ML IV ONE (00:30)
[2019-03-25] MEDS ORDERED: ONDANSETRON PF 4 MG/2 ML VIAL. IV ONE (00:30)
[2019-03-25] MEDS ORDERED: LABETALOL 20 MG/4 ML DISP.SYRIN. IVP ONE (00:30)
[2019-03-25 00:54] LABS: BASO % 0 % (0-3); EOS # 0.1 x10^3/uL (0.0-0.7); EOS % 1 % (0-3); HEMATOCRIT 38.4 % (36.0-47.0); HEMOGLOBIN 12.4 g/dL (12.0-15.5); LYMPH # 1.8 x10^3/uL (1.0-4.8); LYMPH % 23 % (24-48); MEAN CORPUSCULAR HEMOGLOBIN 23 pg (25-35); MEAN CORPUSCULAR HGB CONC 32 g/dL (31-37); MEAN CORPUSCULAR VOLUME 71 fL (79-100); MONO # 0.6 x10^3/uL (0.0-1.1); MONO % 8 % (0-9); NEUT # 5.2 x10^3/uL (1.8-7.7); NEUT % 67 % (31-73); PLATELET COUNT 191 x10^3/uL (140-400); RED BLOOD COUNT 5.42 x10^6/uL (3.50-5.40); RED CELL DISTRIBUTION WIDTH 21.8 % (11.5-14.5); WHITE BLOOD COUNT 7.8 x10^3/uL (4.0-11.0)
[2019-03-25 01:04] LABS: CALCIUM 8.7 mg/dL (8.5-10.1); CREATININE 0.8 mg/dL (0.6-1.0); GFR 75.9; POTASSIUM 4.3 mmol/L (3.5-5.1)
[2019-03-25 01:10] LABS: ALBUMIN 3.1 g/dL (3.4-5.0); ALBUMIN/GLOBULIN RATIO 0.6 (1.0-1.7); MAGNESIUM 1.8 mg/dL (1.8-2.4); TOTAL BILIRUBIN 0.5 mg/dL (0.2-1.0); TOTAL PROTEIN 7.9 g/dL (6.4-8.2)
[2019-03-25 01:17] LABS: CREATINE KINASE 59 U/L (26-192)
[2019-03-25] MEDS ORDERED: CONTRAST GIVEN. MC PRN (01:30)
[2019-03-25] MEDS ORDERED: cloNIDine HCL 0.1 MG TABLET PO ONE (01:30)
[2019-03-25] MEDS ORDERED: KETOROLAC 15 MG/ML VIAL. IV ONE (01:30)
[2019-03-25] MEDS ORDERED: IOHEXOL 300 MG/ML 100ML VIAL. IV ONE (01:30)
[2019-03-25] MEDS ORDERED: hydrALAZINE 20 MG/ML VIAL. IVP ONE ×2 (01:30→03:00)
--- NOTE | 2019-03-25 01:40 | RAD ---
CT brain without contrast. HISTORY: Headache CT scan of brain was done without contrast. There is no intracranial hemorrhage or subdural hematoma. There is no mass or shift of the midline. There is a mucous retention cyst in the right maxillary antrum. Sinuses are otherwise clear. Ventricles are normal in size. There are no abnormal areas of increased or decreased attenuation. IMPRESSION: 1. No intracranial hemorrhage or acute finding noted. If symptoms persist MRI could be of benefit. RS Compliance Statement: One or more of the following individualized dose reduction techniques were utilized for this examination: 1. Automated exposure control 2. Adjustment of the mA and/or kV according to patient size 3. Use of iterative reconstruction technique Electronically signed by: Joe Webster MD (03/25/2019 1:37 AM) [id number]
[2019-03-25 02:08] LABS: MICROCYTOSIS SLIGHT; PLT ESTIMATE ADEQUATE (ADEQUATE)
[2019-03-25 02:19] LABS: BILIRUBIN,URINE NEGATIVE (NEG); CLARITY,URINE CLEAR; COLOR,URINE YELLOW; NITRITE,URINE NEGATIVE (NEG); PH,URINE 6.5; PROTEIN,URINE NEGATIVE (NEG-TRACE); UROBILINOGEN,URINE 0.2 mg/dL (0.2 mg/dL)
[2019-03-25 02:31] LABS: BACTERIA,URINE FEW /HPF (0-FEW); RBC,URINE OCC /HPF (0-2); SQUAMOUS EPITHELIAL CELL,UR MOD /LPF; WBC,URINE OCC /HPF (0-4)
--- NOTE | 2019-03-25 02:51 | RAD ---
CT abdomen pelvis with contrast. HISTORY: Distention, pain CT scan of the abdomen and pelvis was done using 75 mL Omnipaque 300 contrast. Lung bases are clear. There is no effusion. Liver is normal in appearance. Gallbladder is contracted. Spleen is upper normal in size. Adrenals glands are normal. Pancreas is normal. There is no mass or hydronephrosis in the kidneys. There is a right renal cyst measuring 1.5 cm. There is no bowel obstruction. There is no adenopathy. There is moderate stool in the colon. Appendix is normal. There is endometrial thickening in the uterus. There are small cysts or follicles in both ovaries, cyst on the left measures 2.5 cm. On the right side this cyst measures 2 cm. Bladder is mildly distended. IMPRESSION: 1. Mild endometrial thickening although possibly related to the phase of menstrual cycle if patient is still menstruating. 2. Bilateral small ovarian cysts or follicles. 3. Normal appendix. 4. No bowel obstruction. 5. Moderate stool in the colon. RS Compliance Statement: One or more of the following individualized dose reduction techniques were utilized for this examination: 1. Automated exposure control 2. Adjustment of the mA and/or kV according to patient size 3. Use of iterative reconstruction technique Electronically signed by: Joe Webster MD (03/25/2019 2:48 AM) [id number]
[2019-03-25] MEDS ORDERED: CLON0.1T PO (03:56)
--- NOTE | 2019-03-25 03:56 | PHYS DOC ---
Past Medical History Past Medical History: Diabetes-Type II, Hypertension, Hepatitis, Other Additional Past Medical Histor: HEP C, OCD,ADHD, ENCEPHALITIS, PLEURISEY Past Surgical History: Alcohol Use: None Drug Use: Marijuana, Methamphetamine Adult General Chief Complaint Chief Complaint: HYPERTENSION HPI HPI Patient is a 49 year old [f__sex] who presents with [] Review of Systems Review of Systems Constitutional: Denies fever or chills [] Eyes: Denies change in visual acuity, redness, or eye pain [] HENT: Denies nasal congestion or sore throat [] Respiratory: Denies cough or shortness of breath [] Cardiovascular: No additional information not addressed in HPI [] GI: Denies abdominal pain, nausea, vomiting, bloody stools or diarrhea [] : Denies dysuria or hematuria [] Musculoskeletal: Denies back pain or joint pain [] Integument: Denies rash or skin lesions [] Neurologic: Denies headache, focal weakness or sensory changes [] Endocrine: Denies polyuria or polydipsia [] All other systems were reviewed and found to be within normal limits, except as documented in this note. Current Medications Current Medications Current Medications Medications (Trade) Dose Ordered Sig/Curtis Start Time Stop Time Status Last Admin Dose Admin Clonidine HCl (Catapres) 0.1 mg 1X ONCE 03/25/19 01:30 03/25/19 01:31 DC 03/25/19 01:38 0.1 MG Hydralazine HCl (Apresoline Inj) 20 mg 1X ONCE 03/25/19 03:00 03/25/19 03:01 DC Info (CONTRAST GIVEN -- Rx MONITORING) 1 each PRN DAILY PRN 03/25/19 01:30 03/25/19 04:39 DC Iohexol (Omnipaque 300 Mg/ml) 75 ml 1X ONCE 03/25/19 01:30 03/25/19 01:31 DC 03/25/19 01:26 75 ML Ketorolac Tromethamine (Toradol 15mg Vial) 15 mg 1X ONCE 03/25/19 01:30 03/25/19 01:31 DC 03/25/19 01:38 15 MG Labetalol HCl (Normodyne Iv Push) 10 mg 1X ONCE 03/25/19 00:30 03/25/19 00:31 DC 03/25/19 00:37 10 MG Ondansetron HCl (Zofran) 4 mg 1X ONCE 03/25/19 00:30 03/25/19 00:31 DC 03/25/19 00:46 4 MG Sodium Chloride 1,000 ml @ 1,000 mls/hr 1X ONCE 03/25/19 00:30 03/25/19 01:29 DC 03/25/19 00:46 1,000 MLS/HR Allergies Allergies Allergies Coded Allergies Type Severity Reaction Last Updated Verified No Known Drug Allergies 06/14/17 No Physical Exam Physical Exam Constitutional: Well developed, well nourished, no acute distress, non-toxic appearance. [] HENT: Normocephalic, atraumatic, bilateral external ears normal, oropharynx moist, no oral exudates, nose normal. [] Eyes: PERRLA, EOMI, conjunctiva normal, no discharge. [] Neck: Normal range of motion, no tenderness, supple, no stridor. [] Cardiovascular:Heart rate regular rhythm, no murmur [] Lungs & Thorax: Bilateral breath sounds clear to auscultation [] Abdomen: Bowel sounds normal, soft, no tenderness, no masses, no pulsatile masses. [] Skin: Warm, dry, no erythema, no rash. [] Back: No tenderness, no CVA tenderness. [] Extremities: No tenderness, no cyanosis, no clubbing, ROM intact, no edema. [] Neurologic: Alert and oriented X 3, normal motor function, normal sensory function, no focal deficits noted. [] Psychologic: Affect normal, judgement normal, mood normal. [] Current Patient Data Vital Signs Vital Signs Date Time Temp Pulse Resp B/P (MAP) Pulse Ox O2 Delivery O2 Flow Rate FiO2 03/25/19 04:09 94 16 97 03/25/19 01:38 226/109 03/25/19 00:05 98.3 Room Air 98.3 Lab Values Laboratory Tests Test 03/25/19 00:40 03/25/19 02:10 White Blood Count 7.8 x10^3/uL (4.0-11.0) Red Blood Count 5.42 x10^6/uL (3.50-5.40) H Hemoglobin 12.4 g/dL (12.0-15.5) Hematocrit 38.4 % (36.0-47.0) Mean Corpuscular Volume 71 fL (79-100) L Mean Corpuscular Hemoglobin 23 pg (25-35) L Mean Corpuscular Hemoglobin Concent 32 g/dL (31-37) Red Cell Distribution Width 21.8 % (11.5-14.5) H Platelet Count 191 x10^3/uL (140-400) Neutrophils (%) (Auto) 67 % (31-73) Lymphocytes (%) (Auto) 23 % (24-48) L Monocytes (%) (Auto) 8 % (0-9) Eosinophils (%) (Auto) 1 % (0-3) Basophils (%) (Auto) 0 % (0-3) Neutrophils # (Auto) 5.2 x10^3/uL (1.8-7.7) Lymphocytes # (Auto) 1.8 x10^3/uL (1.0-4.8) Monocytes # (Auto) 0.6 x10^3/uL (0.0-1.1) Eosinophils # (Auto) 0.1 x10^3/uL (0.0-0.7) Basophils # (Auto) 0.0 x10^3/uL (0.0-0.2) Platelet Estimate Adequate (ADEQUATE) Microcytosis Slight Macrocytosis Slight Sodium Level 137 mmol/L (136-145) Potassium Level 4.3 mmol/L (3.5-5.1) Chloride Level 99 mmol/L (98-107) Carbon Dioxide Level 29 mmol/L (21-32) Anion Gap 9 (6-14) Blood Urea Nitrogen 8 mg/dL (7-20) Creatinine 0.8 mg/dL (0.6-1.0) Estimated GFR (Cockcroft-Gault) 75.9 BUN/Creatinine Ratio 10 (6-20) Glucose Level 241 mg/dL (70-99) H Lactic Acid Level 1.6 mmol/L (0.4-2.0) Calcium Level 8.7 mg/dL (8.5-10.1) Magnesium Level 1.8 mg/dL (1.8-2.4) Total Bilirubin 0.5 mg/dL (0.2-1.0) Aspartate Amino Transferase (AST) 86 U/L (15-37) H Alanine Aminotransferase (ALT) 127 U/L (14-59) H Alkaline Phosphatase 127 U/L (46-116) H Creatine Kinase 59 U/L (26-192) Creatine Kinase MB (Mass) 1.0 ng/mL (0.0-3.6) Creatine Kinase MB Relative Index % (0-4) Troponin I Quantitative < 0.017 ng/mL (0.000-0.055) Total Protein 7.9 g/dL (6.4-8.2) Albumin 3.1 g/dL (3.4-5.0) L Albumin/Globulin Ratio 0.6 (1.0-1.7) L Lipase 118 U/L (73-393) Ethyl Alcohol Level < 10 mg/dL (0-10) Urine Collection Type Void Urine Color Yellow Urine Clarity Clear Urine pH 6.5 Urine Specific [place] >=1.030 Urine Protein Negative mg/dL (NEG-TRACE) Urine Glucose (UA) 500 mg/dL (NEG) Urine Ketones (Stick) Negative mg/dL (NEG) Urine Blood Negative (NEG) Urine Nitrite Negative (NEG) Urine Bilirubin Negative (NEG) Urine Urobilinogen Dipstick 0.2 mg/dL (0.2 mg/dL) Urine Leukocyte Esterase Negative (NEG) Urine RBC Occ /HPF (0-2) Urine WBC Occ /HPF (0-4) Urine Squamous Epithelial Cells Mod /LPF Urine Bacteria Few /HPF (0-FEW) Laboratory Tests 03/25/19 00:40 Laboratory Tests 03/25/19 00:40 EKG EKG @0030 NSR at 91bpm, NO ST elevation, incomplete RBBB Radiology/Procedures Radiology/Procedures [] Course & Med Decision Making Course & Med Decision Making Pertinent Labs and Imaging studies reviewed. (See chart for details) [] Dragon Disclaimer Dragon Disclaimer This electronic medical record was generated, in whole or in part, using a voice recognition dictation system. Departure Departure Impression: Primary Impression: Hypertensive urgency Additional Impression: Elevated LFTs Disposition: HOME, SELF-CARE Condition: STABLE Referrals: NO PCP (PCP) Patient Instructions: Hypertension, Bjvs-ch-Otox Additional Instructions: Your liver enzymes are still slightly elevated. They have improved since you were last seen in the Emergency Department here back in February 2019. You need to follow with your doctor or be seen in a free clinic for further evaluation and treatment. They may have programs to help you get the medication you need. Scripts Clonidine Hcl (CLONIDINE HCL) 0.1 Mg Tablet 0.1 MG PO BID PRN for ELEVATED BP, SEE COMMENTS, #20 TAB Take for systolic blood pressure (top number) greater than 185 and/or diastolic blood pressure (bottom number) greater than 110. Prov: OPAL SHERIDAN DO 03/25/19 Problem Qualifiers OPAL SHERIDAN DO Mar 25, 2019 03:56
[2019-03-25 04:09] VITALS: BP 150/85
--- NOTE | 2019-03-27 07:18 | EKG ---
[facility] [address] [place] [address] Test Date: 2019-03-25 Test Time: 00:30:01 Pat Name: LINDSEY MARX Department: Room: Gender: [place]: : 1970 Requested By: OPAL SHERIDAN Order Number: [id number] Reading MD: Measurements Intervals [place] Rate: 91 P: 56 VT: 144 QRS: 49 QRSD: 84 T: 65 QT: 362 QTc: 447 Interpretive Statements SINUS RHYTHM LEFT ATRIAL ABNORMALITY INCOMPLETE RIGHT BUNDLE BRANCH BLOCK QRS(T) CONTOUR ABNORMALITY CONSIDER ANTEROLATERAL MYOCARDIAL DAMAGE ABNORMAL ECG RI6.01 Unconfirmed report No previous ECG available for comparison
== END 2019-03-25 04:15 | disposition home or self-care (01) ==
LOC: ER 00:04
DX: I16.0 Hypertensive urgency (principal); R79.89 Other specified abnormal findings of blood chemistry; F42.9 Obsessive-compulsive disorder, unspecified
CPT/HCPCS: 36415; 70450; 74177; 80053; 81001; 82553; 83605; 83690; 83735; 84484; 85025; 93005; 96374; 96375; 99285; G0480; J0360; J1885; J2405; J3490; J7030; Q9967

== ENCOUNTER 2019-08-27 12:41 | Emergency (ER) | payer SELFPAY ==
[~2019-08-27] VITALS: Ht 157.5 cm; Wt 97.0 kg
[~2019-08-27 12:41] MED LIST changes: +CLON0.1T PO
[2019-08-27] MEDS ORDERED: MORPHINE SULFATE 10 MG/ML VIAL. IV STA (13:17)
--- NOTE | 2019-08-27 13:23 | PHYS DOC ---
Past Medical History Past Medical History: Diabetes-Type II, Hypertension, Hepatitis, Other Additional Past Medical Histor: OCD,ADHD, ENCEPHALITIS, PLEURISEY Past Surgical History: , Tubal ligation Smoking Status: Current Every Day Smoker Alcohol Use: None Drug Use: Marijuana, Methamphetamine Adult General Chief Complaint Chief Complaint: ABDOMINAL PAIN HPI HPI Patient is a 49 year old female who presents with RUQ abdominal pain that has been ongoing for 2 days. The patient has also been having associated symptoms of nausea and vomiting. The patient has also been having cough. The patient has been having severe pain that she rates 10/10. The patient has a past history of liver issues. Review of Systems Review of Systems Constitutional: Denies fever or chills [] Eyes: Denies change in visual acuity, redness, or eye pain [] HENT: Denies nasal congestion or sore throat [] Respiratory: Denies cough or shortness of breath [] Cardiovascular: No additional information not addressed in HPI [] GI: Reports abdominal pain, nausea, vomiting, Denies bloody stools or diarrhea [] : Denies dysuria or hematuria [] Musculoskeletal: Denies back pain or joint pain [] Integument: Denies rash or skin lesions [] Neurologic: Denies headache, focal weakness or sensory changes [] Endocrine: Denies polyuria or polydipsia [] Complete systems were reviewed and found to be within normal limits, except as documented in this note. Current Medications Current Medications Current Medications Medications (Trade) Dose Ordered Sig/Curtis Start Time Stop Time Status Last Admin Dose Admin Fentanyl Citrate (Fentanyl 2ml Vial) 75 mcg 1X STAT 08/27/19 14:19 08/27/19 14:21 DC 08/27/19 14:35 75 MCG Info (CONTRAST GIVEN -- Rx MONITORING) 1 each PRN DAILY PRN 08/27/19 13:45 08/29/19 13:44 Iohexol (Omnipaque 300 Mg/ml) 75 ml 1X ONCE 08/27/19 13:45 08/27/19 13:46 DC 08/27/19 14:01 75 ML Morphine Sulfate (Morphine Sulfate) 5 mg 1X STAT 08/27/19 13:17 08/27/19 13:22 DC 08/27/19 13:43 5 MG Ondansetron HCl (Zofran) 4 mg 1X ONCE 08/27/19 13:30 08/27/19 13:31 DC 08/27/19 13:43 4 MG Sodium Chloride 1,000 ml @ 1,000 mls/hr 1X ONCE 08/27/19 13:30 08/27/19 14:29 DC 08/27/19 13:42 1,000 MLS/HR Allergies Allergies Allergies Coded Allergies Type Severity Reaction Last Updated Verified No Known Drug Allergies 06/14/17 No Physical Exam Physical Exam Constitutional: Well developed, well nourished, no acute distress, non-toxic appearance. [] HENT: Normocephalic, atraumatic, bilateral external ears normal, oropharynx moist, no oral exudates, nose normal. [] Eyes: PERRLA, EOMI, conjunctiva normal, no discharge. [] Neck: Normal range of motion, no tenderness, supple, no stridor. [] Cardiovascular:Heart rate regular rhythm, no murmur [] Lungs & Thorax: Bilateral breath sounds clear to auscultation [] Abdomen: Bowel sounds normal, soft, RUQ tenderness, no masses, no pulsatile masses. [] Skin: Warm, dry, no erythema, no rash. [] Neurologic: Alert and oriented X 3, normal motor function, normal sensory function, no focal deficits noted. [] Psychologic: Affect normal, judgement normal, mood normal. [] Current Patient Data Vital Signs Vital Signs Date Time Temp Pulse Resp B/P (MAP) Pulse Ox O2 Delivery O2 Flow Rate FiO2 08/27/19 14:35 83 18 172/76 (108) 93 Room Air 08/27/19 13:06 97.8 97.8 Lab Values Laboratory Tests Test 08/27/19 12:52 08/27/19 12:58 Urine Collection Type Unknown Urine Color Dk yellow Urine Clarity Clear Urine pH 6.0 Urine Specific [place] 1.025 Urine Protein Negative mg/dL (NEG-TRACE) Urine Glucose (UA) >=1000 mg/dL (NEG) Urine Ketones (Stick) Negative mg/dL (NEG) Urine Blood Negative (NEG) Urine Nitrite Negative (NEG) Urine Bilirubin Negative (NEG) Urine Urobilinogen Dipstick 1.0 mg/dL (0.2 mg/dL) Urine Leukocyte Esterase Negative (NEG) Urine RBC 0 /HPF (0-2) Urine WBC Occ /HPF (0-4) Urine Squamous Epithelial Cells Many /LPF Urine Bacteria Many /HPF (0-FEW) Urine Mucus Marked /LPF White Blood Count 9.4 x10^3/uL (4.0-11.0) Red Blood Count 5.79 x10^6/uL (3.50-5.40) H Hemoglobin 14.6 g/dL (12.0-15.5) Hematocrit 44.7 % (36.0-47.0) Mean Corpuscular Volume 77 fL (79-100) L Mean Corpuscular Hemoglobin 25 pg (25-35) Mean Corpuscular Hemoglobin Concent 33 g/dL (31-37) Red Cell Distribution Width 16.6 % (11.5-14.5) H Platelet Count 230 x10^3/uL (140-400) Neutrophils (%) (Auto) 68 % (31-73) Lymphocytes (%) (Auto) 24 % (24-48) Monocytes (%) (Auto) 7 % (0-9) Eosinophils (%) (Auto) 1 % (0-3) Basophils (%) (Auto) 0 % (0-3) Neutrophils # (Auto) 6.4 x10^3/uL (1.8-7.7) Lymphocytes # (Auto) 2.2 x10^3/uL (1.0-4.8) Monocytes # (Auto) 0.7 x10^3/uL (0.0-1.1) Eosinophils # (Auto) 0.1 x10^3/uL (0.0-0.7) Basophils # (Auto) 0.0 x10^3/uL (0.0-0.2) Sodium Level 137 mmol/L (136-145) Potassium Level 4.1 mmol/L (3.5-5.1) Chloride Level 98 mmol/L (98-107) Carbon Dioxide Level 29 mmol/L (21-32) Anion Gap 10 (6-14) Blood Urea Nitrogen 12 mg/dL (7-20) Creatinine 0.8 mg/dL (0.6-1.0) Estimated GFR (Cockcroft-Gault) 75.9 BUN/Creatinine Ratio 15 (6-20) Glucose Level 212 mg/dL (70-99) H Calcium Level 9.6 mg/dL (8.5-10.1) Magnesium Level 1.9 mg/dL (1.8-2.4) Total Bilirubin 0.5 mg/dL (0.2-1.0) Aspartate Amino Transferase (AST) 105 U/L (15-37) H Alanine Aminotransferase (ALT) 179 U/L (14-59) H Alkaline Phosphatase 132 U/L (46-116) H Ammonia < 10 mcmol/L (11-34) L Total Protein 9.1 g/dL (6.4-8.2) H Albumin 3.6 g/dL (3.4-5.0) Albumin/Globulin Ratio 0.7 (1.0-1.7) L Lipase 127 U/L (73-393) Laboratory Tests 08/27/19 12:58 Laboratory Tests 08/27/19 12:58 EKG EKG [] Radiology/Procedures Radiology/Procedures [facility] [address] [place] [address] IMAGING REPORT Signed PATIENT: LINDSEY MARX ACCOUNT: [id number] : 1970 LOCATION: ER AGE: 49 SEX: F EXAM STATUS: REG ER ORD. PHYSICIAN: OPAL NAJERA APRN REASON: RUQ abdominal pain, n, v PROCEDURE: ABDOMEN LTD Exam performed: Limited right upper quadrant sonogram. Indication: Abdominal pain, hepatitis C Date of Service: 08/27/2019 . Comparison: CT abdomen and pelvis from earlier today Technique: Real-time grayscale imaging of the right upper abdomen is performed and images are obtained. Findings: Hepatomegaly with heterogeneous hepatic echotexture. The liver measures 18.9 cm in length. There is no intra or extrahepatic biliary ductal dilatation. The gallbladder is well distended without any shadowing intraluminal calculus, pericholecystic fluid or gallbladder wall thickening. The gallbladder wall measures 1.6 mm. The common bile duct measures 4.6 mm. The right kidney appears unremarkable and measures 10.2 cm in length. There is no hydronephrosis or perinephric fluid collection. The visualized pancreas , aorta and IVC appear unremarkable. Impression: 1. Hepatomegaly, otherwise unremarkable right upper quadrant sonogram. Electronically signed by: Carmen Pickett MD (08/27/2019 2:39 PM) [facility] DICTATED and SIGNED BY: CARMEN PICKETT MD DATE: 08/27/19 1439 [facility] [address] [place] [address] IMAGING REPORT Signed PATIENT: LINDSEY MARX ACCOUNT: [id number] : 1970 LOCATION: ER AGE: 49 SEX: F EXAM STATUS: REG ER ORD. PHYSICIAN: OPAL NAJERA APRN REASON: cough PROCEDURE: CHEST PA & LATERAL Exam performed: 2 views of the chest. Indication: Cough Date of Service: 08/27/2019 1:17 PM . Comparison : One view chest from 02/16/2019 Findings: PA and lateral radiographs of the chest reveal a normal cardiomediastinal contour. The lungs are clear. No pleural fluid is seen. The visualized osseous structures are unremarkable. Impression: No acute cardiopulmonary process seen. Electronically signed by: Carmen Pickett MD (08/27/2019 1:47 PM) [facility] DICTATED and SIGNED BY: CARMEN PICKETT MD DATE: 08/27/19 1347 [][facility] [address] [place] [address] IMAGING REPORT Signed PATIENT: LINDSEY MARX ACCOUNT: [id number] : 1970 LOCATION: ER AGE: 49 SEX: F EXAM STATUS: REG ER ORD. PHYSICIAN: OPAL NAJERA APRN REASON: RUQ abdominal pain PROCEDURE: CT ABD PELV W/ IV CONTRST ONLY Exam performed: CT scan of the abdomen and pelvis with contrast Clinical Indication:Right upper quadrant abdominal pain Date of Service: 09/06/2018 comparison: CT abdomen and pelvis from March 25, 2019. Technique: Contiguous helical acquisitions are obtained from the lung bases to the pelvis during intravenous administration of [75 cc of Omnipaque 300]. Sagittal and coronal reformatted images were obtained and reviewed. CT abdomen findings: The lung bases appear essentially clear. The visualized heart is normal. There are several tiny low attenuating nodules in the liver, stable since prior exams likely cysts. The spleen is mildly enlarged, however stable. Gall bladder and pancreas appears unremarkable. Both adrenal glands and bilateral kidneys appear normal with symmetric excretion of contrast via both kidneys. There is a small cyst in the right inferior renal pole. The small bowel loops appear nondilated and unremarkable. There is scattered stool in the right colon. Visualized appendix is normal. Aorta is normal in caliber. There is no retroperitoneal lymphadenopathy or mass lesions. The urinary bladder is well distended and normal . Sigmoid diverticulosis without diverticulitis. Uterus is anteverted. Trace fluid in the endometrial cavity. No adnexal masses seen. Interrogation of bone windows demonstrates no obvious bony abnormality. Sagittal and coronal reformatted images were obtained and reviewed which demonstrate no additional findings. Impression abdomen and pelvis : 1. Mild hepatosplenomegaly. 2. Sigmoid diverticulosis without acute diverticulitis PQRS Compliance Statement: One or more of the following individualized dose reduction techniques were utilized for this examination: 1. Automated exposure control 2. Adjustment of the mA and/or kV according to patient size 3. Use of iterative reconstruction technique Electronically signed by: Carmen Pickett MD (08/27/2019 2:31 PM) [facility] DICTATED and SIGNED BY: CARMEN PICKETT MD DATE: 08/27/19 1437 Course & Med Decision Making Course & Med Decision Making Pertinent Labs and Imaging studies reviewed. (See chart for details) Will get labs, CT, Ultrasound, and chest x-ray. Will give supportive care. Labs and imaging is unremarkable for acute changes. It does show mild hepatosplenomegaly and mildly elevated liver enzymes. Will have follow up with primary care. Dragon Disclaimer Dragon Disclaimer This electronic medical record was generated, in whole or in part, using a voice recognition dictation system. Departure Departure Impression: Primary Impression: RUQ pain Disposition: 01 HOME, SELF-CARE Condition: STABLE Referrals: NO PCP (PCP) Additional Instructions: Thank you for visiting [facility]. We appreciate you trusting us with your care. If any additional problems come up don't hesitate to return to visit us. Please follow up with your primary care provider so they can plan additional care if needed and know about the problem that you had. If symptoms worsen come back to the Emergency Department. Any concerning symptoms that start such as chest pain, shortness of air, weakness or numbness on one side of the body, running high fevers or any other concerning symptoms return to the ER. OPAL NAJERA APRN Aug 27, 2019 13:23
[2019-08-27] MEDS ORDERED: ONDANSETRON PF 4 MG/2 ML VIAL. IV ONE (13:30)
[2019-08-27] MEDS ORDERED: IV NORMAL SALINE 1000ML BAG 1,000 ML IV ONE (13:30)
[2019-08-27 13:32] LABS: BASO % 0 % (0-3); EOS # 0.1 x10^3/uL (0.0-0.7); EOS % 1 % (0-3); HEMATOCRIT 44.7 % (36.0-47.0); HEMOGLOBIN 14.6 g/dL (12.0-15.5); LYMPH # 2.2 x10^3/uL (1.0-4.8); LYMPH % 24 % (24-48); MEAN CORPUSCULAR HEMOGLOBIN 25 pg (25-35); MEAN CORPUSCULAR HGB CONC 33 g/dL (31-37); MEAN CORPUSCULAR VOLUME 77 fL (79-100); MONO # 0.7 x10^3/uL (0.0-1.1); MONO % 7 % (0-9); NEUT # 6.4 x10^3/uL (1.8-7.7); NEUT % 68 % (31-73); PLATELET COUNT 230 x10^3/uL (140-400); RED BLOOD COUNT 5.79 x10^6/uL (3.50-5.40); RED CELL DISTRIBUTION WIDTH 16.6 % (11.5-14.5); WHITE BLOOD COUNT 9.4 x10^3/uL (4.0-11.0)
[2019-08-27 13:33] LABS: BILIRUBIN,URINE NEGATIVE (NEG); CLARITY,URINE CLEAR; NITRITE,URINE NEGATIVE (NEG); PROTEIN,URINE NEGATIVE (NEG-TRACE)
[2019-08-27 13:40] LABS: COLOR,URINE DK YELLOW
[2019-08-27 13:41] LABS: CALCIUM 9.6 mg/dL (8.5-10.1); CREATININE 0.8 mg/dL (0.6-1.0); GFR 75.9; POTASSIUM 4.1 mmol/L (3.5-5.1)
[2019-08-27 13:43] LABS: BACTERIA,URINE MANY /HPF (0-FEW); RBC,URINE 0 /HPF (0-2); SQUAMOUS EPITHELIAL CELL,UR MANY /LPF; WBC,URINE OCC /HPF (0-4)
[2019-08-27] MEDS ORDERED: CONTRAST GIVEN. MC PRN (13:45)
[2019-08-27] MEDS ORDERED: IOHEXOL 300 MG/ML 100ML VIAL. IV ONE (13:45)
[2019-08-27 13:47] LABS: ALBUMIN 3.6 g/dL (3.4-5.0); ALBUMIN/GLOBULIN RATIO 0.7 (1.0-1.7); MAGNESIUM 1.9 mg/dL (1.8-2.4); TOTAL BILIRUBIN 0.5 mg/dL (0.2-1.0); TOTAL PROTEIN 9.1 g/dL (6.4-8.2)
--- NOTE | 2019-08-27 13:50 | RAD ---
Exam performed: 2 views of the chest. Indication: Cough Date of Service: 08/27/2019 1:17 PM . Comparison : One view chest from 02/16/2019 Findings: PA and lateral radiographs of the chest reveal a normal cardiomediastinal contour. The lungs are clear. No pleural fluid is seen. The visualized osseous structures are unremarkable. Impression: No acute cardiopulmonary process seen. Electronically signed by: Carmen Pickett MD (08/27/2019 1:47 PM) [facility]
[2019-08-27] MEDS ORDERED: fentaNYL PF VIAL 100 MCG/2 ML VIAL IV STA (14:19)
--- NOTE | 2019-08-27 14:33 | RAD ---
Exam performed: CT scan of the abdomen and pelvis with contrast Clinical Indication:Right upper quadrant abdominal pain Date of Service: 09/06/2018 comparison: CT abdomen and pelvis from March 25, 2019. Technique: Contiguous helical acquisitions are obtained from the lung bases to the pelvis during intravenous administration of [75 cc of Omnipaque 300]. Sagittal and coronal reformatted images were obtained and reviewed. CT abdomen findings: The lung bases appear essentially clear. The visualized heart is normal. There are several tiny low attenuating nodules in the liver, stable since prior exams likely cysts. The spleen is mildly enlarged, however stable. Gall bladder and pancreas appears unremarkable. Both adrenal glands and bilateral kidneys appear normal with symmetric excretion of contrast via both kidneys. There is a small cyst in the right inferior renal pole. The small bowel loops appear nondilated and unremarkable. There is scattered stool in the right colon. Visualized appendix is normal. Aorta is normal in caliber. There is no retroperitoneal lymphadenopathy or mass lesions. The urinary bladder is well distended and normal . Sigmoid diverticulosis without diverticulitis. Uterus is anteverted. Trace fluid in the endometrial cavity. No adnexal masses seen. Interrogation of bone windows demonstrates no obvious bony abnormality. Sagittal and coronal reformatted images were obtained and reviewed which demonstrate no additional findings. Impression abdomen and pelvis : 1. Mild hepatosplenomegaly. 2. Sigmoid diverticulosis without acute diverticulitis PQRS Compliance Statement: One or more of the following individualized dose reduction techniques were utilized for this examination: 1. Automated exposure control 2. Adjustment of the mA and/or kV according to patient size 3. Use of iterative reconstruction technique Electronically signed by: Carmen Pickett MD (08/27/2019 2:31 PM) [facility]
[2019-08-27 14:35] VITALS: BP 172/76
--- NOTE | 2019-08-27 14:42 | RAD ---
Exam performed: Limited right upper quadrant sonogram. Indication: Abdominal pain, hepatitis C Date of Service: 08/27/2019 . Comparison: CT abdomen and pelvis from earlier today Technique: Real-time grayscale imaging of the right upper abdomen is performed and images are obtained. Findings: Hepatomegaly with heterogeneous hepatic echotexture. The liver measures 18.9 cm in length. There is no intra or extrahepatic biliary ductal dilatation. The gallbladder is well distended without any shadowing intraluminal calculus, pericholecystic fluid or gallbladder wall thickening. The gallbladder wall measures 1.6 mm. The common bile duct measures 4.6 mm. The right kidney appears unremarkable and measures 10.2 cm in length. There is no hydronephrosis or perinephric fluid collection. The visualized pancreas , aorta and IVC appear unremarkable. Impression: 1. Hepatomegaly, otherwise unremarkable right upper quadrant sonogram. Electronically signed by: Carmen Pickett MD (08/27/2019 2:39 PM) [facility]
== END 2019-08-27 15:38 | disposition home or self-care (01) ==
LOC: ER 12:41
DX: R10.11 Right upper quadrant pain (principal); R11.2 Nausea with vomiting, unspecified; R05 Cough; E11.9 Type 2 diabetes mellitus without complications; I10 Essential (primary) hypertension; F90.9 Attention-deficit hyperactivity disorder, unspecified type; F12.90 Cannabis use, unspecified, uncomplicated; F15.90 Other stimulant use, unspecified, uncomplicated; F17.200 Nicotine dependence, unspecified, uncomplicated; Z98.890 Other specified postprocedural states; Z98.51 Tubal ligation status
CPT/HCPCS: 36415; 71046; 74177; 76705; 80053; 81001; 82140; 83690; 83735; 85025; 87086; 96361; 96374; 96375; 99285; J2270; J2405; J3010; J7030; Q9967

== ENCOUNTER 2019-11-03 19:11 | Emergency (ER) | payer SELFPAY ==
[~2019-11-03] VITALS: Ht 157.5 cm; Wt 100.0 kg
[2019-11-03] MEDS ORDERED: ONDANSETRON PF 4 MG/2 ML VIAL. ONE (19:16)
[2019-11-03] MEDS ORDERED: IV NORMAL SALINE 1000ML BAG 1,000 ML IV SCH (19:19)
[2019-11-03] MEDS ORDERED: SCOPOLAMINE 1.5MG PATCH. TD ONE (19:30)
--- NOTE | 2019-11-03 19:31 | PHYS DOC ---
Past Medical History Past Medical History: Diabetes-Type II, Hypertension, Hepatitis, Other Additional Past Medical Histor: OCD,ADHD, ENCEPHALITIS, PLEURISEY Past Surgical History: , Tubal ligation Smoking Status: Current Every Day Smoker Alcohol Use: None Drug Use: Marijuana, Methamphetamine General Adult EDM: Chief Complaint: WEAKNESS/GENERALIZED HPI: HPI: Patient is a 49 year old female who presents with complaint of dizziness along with nausea and vomiting. Patient states the dizziness is started this morning and then nausea and vomiting as well as diaphoresis that started just a couple of hours ago. Patient states the nausea is worsened when dizziness is worsened. She states the dizziness is worsened with change of position. She denies any abdominal pain. She denies any chest pain or shortness breath. She denies any cough or fever. Patient states that onset of symptoms was very sudden. She denies any lateralizing weakness or speech deficits.[] Review of Systems: Review of Systems: Constitutional: Denies fever or chills. [] Respiratory: Denies cough or shortness of breath. [] Cardiovascular: Denies chest pain or edema. [] GI: Denies abdominal pain or diarrhea. Complains of nausea and vomiting. [] Neurologic: Denies headache, focal weakness or sensory changes. Complains of dizziness. [] A full 10 point review of systems has been reviewed and is otherwise negative. Heart Score: Risk Factors: Risk Factors: DM, Current or recent (<one month) smoker, HTN, HLP, family history of CAD, obesity. Risk Scores: Score 0 - 3: 2.5% MACE over next 6 weeks - Discharge Home Score 4 - 6: 20.3% MACE over next 6 weeks - Admit for Clinical Observation Score 7 - 10: 72.7% MACE over next 6 weeks - Early Invasive Strategies Current Medications: Current Medications Medications (Trade) Dose Ordered Sig/Curtis Start Time Stop Time Status Last Admin Dose Admin Lorazepam (Ativan Inj) 1 mg 1X ONCE 11/03/19 19:30 11/03/19 19:31 Ondansetron HCl (Zofran) 4 mg STK-MED ONCE 11/03/19 19:16 11/03/19 19:16 DC Scopolamine (Transderm-Scop) 1 patch 1X ONCE 11/03/19 19:30 11/03/19 19:31 Sodium Chloride 1,000 ml @ 1,000 mls/hr Q1H 11/03/19 19:19 11/03/19 20:18 Allergies: Allergies: Allergies Coded Allergies Type Severity Reaction Last Updated Verified No Known Drug Allergies 06/14/17 No Physical Exam: PE: Constitutional: Well developed, well nourished, no acute distress, non-toxic appearance. [] HENT: Normocephalic, atraumatic, bilateral external ears normal, oropharynx moist, no oral exudates, nose normal. [] Eyes: PERRLA, EOMI, conjunctiva normal, no discharge. [] Neck: Normal range of motion, no tenderness, supple, no stridor. [] Cardiovascular:Heart rate regular rhythm, no murmur [] Lungs & Thorax: Bilateral breath sounds clear to auscultation [] Abdomen: Bowel sounds normal, soft, no tenderness. [] Skin: Cool and diaphoretic, no erythema, no rash. [] Extremities: No tenderness, no cyanosis, no clubbing, ROM intact. [] Neurologic: Alert and oriented X 3, no focal deficits noted. [] EKG: EKG: [] Radiology/Procedures: Radiology/Procedures: [] Course & Med Decision Making: Course & Med Decision Making Pertinent Labs and Imaging studies reviewed. (See chart for details) Patient moved to room upon arrival was evaluated by ER medical staff after which an IV was established and blood work was drawn. Patient given a dose of Zofran initially for the nausea. Patient continued to have nausea despite Zofran and ultimately was also given doses of Reglan and Benadryl. Patient also given a dose of Ativan as well as a Transderm scope patch. Patient reevaluated at 9:30 PM and reports the symptoms are markedly improved. Workup has returned unremarkable and after findings reviewed with patient, patient discharged home. Geri Disclaimer: Geri Disclaimer: This electronic medical record was generated, in whole or in part, using a voice recognition dictation system. Departure Departure Impression: Primary Impression: Benign positional vertigo Qualified Codes: H81.10 - Benign paroxysmal vertigo, unspecified ear Disposition: HOME, SELF-CARE Condition: STABLE Referrals: NO PCP (PCP) Patient Instructions: Benign Positional Vertigo Scripts Ondansetron (ONDANSETRON ODT) 4 Mg Tab.rapdis 1 TAB PO PRN Q6-8HRS PRN for NAUSEA, #15 TAB Prov: JAIRON ZULUAGA Jr. DO 11/03/19 Meclizine Hcl (MECLIZINE HCL) 25 Mg Tablet 25 MG PO PRN TID PRN for DIZZINESS, #30 TAB dizziness Prov: JAIRON ZULUAGA Jr. DO 11/03/19 JAIRON ZULUAGA Jr. DO Nov 03, 2019 19:31
[2019-11-03 20:00] LABS: BASO % 0 % (0-3); EOS # 0.1 x10^3/uL (0.0-0.7); EOS % 2 % (0-3); HEMATOCRIT 40.5 % (36.0-47.0); HEMOGLOBIN 13.1 g/dL (12.0-15.5); LYMPH # 1.7 x10^3/uL (1.0-4.8); LYMPH % 40 % (24-48); MEAN CORPUSCULAR HEMOGLOBIN 25 pg (25-35); MEAN CORPUSCULAR HGB CONC 32 g/dL (31-37); MEAN CORPUSCULAR VOLUME 77 fL (79-100); MONO # 0.3 x10^3/uL (0.0-1.1); MONO % 8 % (0-9); NEUT # 2.1 x10^3/uL (1.8-7.7); NEUT % 49 % (31-73); PLATELET COUNT 142 x10^3/uL (140-400); RED BLOOD COUNT 5.25 x10^6/uL (3.50-5.40); RED CELL DISTRIBUTION WIDTH 17.6 % (11.5-14.5); WHITE BLOOD COUNT 4.2 x10^3/uL (4.0-11.0)
[2019-11-03] MEDS ORDERED: MECLIZINE HCL 12.5 MG TABLET. PO ONE (20:00)
[2019-11-03 20:06] LABS: CALCIUM 8.8 mg/dL (8.5-10.1); GFR 58.7; POTASSIUM 3.6 mmol/L (3.5-5.1)
[2019-11-03 20:12] LABS: ALBUMIN 3.3 g/dL (3.4-5.0); ALBUMIN/GLOBULIN RATIO 0.7 (1.0-1.7); TOTAL BILIRUBIN 0.3 mg/dL (0.2-1.0); TOTAL PROTEIN 7.9 g/dL (6.4-8.2)
[2019-11-03] MEDS ORDERED: METOCLOPRAMIDE HCL 10 MG/2 ML VIAL. IVP ONE (20:30)
[2019-11-03] MEDS ORDERED: diphenhydrAMINE 50 MG/ML VIAL IVP ONE (20:30)
[2019-11-03 21:36] LABS: BILIRUBIN,URINE NEGATIVE (NEG); CLARITY,URINE CLEAR; COLOR,URINE YELLOW; NITRITE,URINE NEGATIVE (NEG); PH,URINE 7.5 (<5.0-8.0); PROTEIN,URINE NEGATIVE (NEG-TRACE); UROBILINOGEN,URINE 0.2 mg/dL (0.2 mg/dL)
[2019-11-03 21:51] LABS: BACTERIA,URINE MANY /HPF (0-FEW); RBC,URINE 0 /HPF (0-2); SQUAMOUS EPITHELIAL CELL,UR MANY /LPF; WBC,URINE OCC /HPF (0-4)
[2019-11-03 21:55] VITALS: BP 209/101
[2019-11-03] MEDS ORDERED: ONDA4TAB12 PO (22:06)
[2019-11-03] MEDS ORDERED: MECL-75 PO (22:06)
== END 2019-11-03 22:15 | disposition home or self-care (01) ==
LOC: ER 19:11
DX: H81.10 Benign paroxysmal vertigo, unspecified ear (principal); R11.2 Nausea with vomiting, unspecified; I10 Essential (primary) hypertension; E11.9 Type 2 diabetes mellitus without complications; F17.200 Nicotine dependence, unspecified, uncomplicated
CPT/HCPCS: 36415; 80053; 81001; 85025; 87086; 96361; 96374; 96375; 99285; J1200; J2060; J2765; J7030

== ENCOUNTER 2021-05-08 12:23 | Inpatient (IN) | payer SELFPAY ==
[~2021-05-08] VITALS: Ht 157.5 cm; Wt 90.3 kg
[~2021-05-08 12:23] MED LIST changes: +AMLO-186 PO; +AMLO-187 PO; -AMLO10TA8 PO; +BUTA1TAB23 PO; +DOXY100T PO; -LISI-334 PO; +LISI20TA18 PO; +LISI5TAB15 PO; +MECL-75 PO; +METF850T PO; +METO25TA4 PO; +ONDA4TAB12 PO
[2021-05-08] MEDS ORDERED: IV NORMAL SALINE 1000ML BAG 1,000 ML IV ONE ×2 (12:45→16:30)
--- NOTE | 2021-05-08 12:45 | PHYS DOC ---
Past Medical History Past Medical History: Diabetes-Type II, Hypertension, Hepatitis, Other Additional Past Medical Histor: OCD,ADHD, ENCEPHALITIS, PLEURISEY Past Surgical History: , Tubal ligation Smoking Status: Current Every Day Smoker Alcohol Use: None Drug Use: Marijuana, Methamphetamine General Adult EDM: Chief Complaint: DIZZY/LIGHT HEADED HPI: HPI: Patient is a 51 year old female who [place] of dizziness. She describes vertigo symptoms. She reports that she has experienced the same symptoms previously. She reports that she was feeling fine and then she had abrupt onset of dizziness while sitting playing slot machines. She denies fall or head injury or loss of consciousness. She denies numbness tingling or focal motor weakness. She denies chest pain or dyspnea. She denies abdominal pain. She reports mild nausea, without vomiting. She is an extremely poor historian and does not seem to be completely willing to participate in her care or provide more detailed history. She admits to using methamphetamine yesterday. She has a history of recently diagnosed type 2 diabetes as well as hypertension. She admits that she has not taken any of her prescribed medications "in a while." Review of Systems: Review of Systems: Review of systems is largely not fully obtainable secondary to patient's refusal to fully cooperate and answer most questions Constitutional: She denies fever. Eyes: She admits to some photophobia. Denies vision loss. Respiratory: Denies shortness of breath Cardiovascular: She denies chest pain. GI: Denies abdominal pain. Admits to nausea, no reported vomiting. Musculoskeletal: She denies any joint pain or swelling. Integument: Multiple scabs and pick toure on her skin. Neurologic: Reports vertigo symptoms and dizziness. Denies numbness, focal weakness, paralysis, syncope. Endocrine: Has chronically uncontrolled and untreated type 2 diabetes mellitus. Psychiatric: Longstanding use of methamphetamine and marijuana. Heart Score: C/O Chest Pain: No Risk Factors: Risk Factors: DM, Current or recent (<one month) smoker, HTN, HLP, family history of CAD, obesity. Risk Scores: Score 0 - 3: 2.5% MACE over next 6 weeks - Discharge Home Score 4 - 6: 20.3% MACE over next 6 weeks - Admit for Clinical Observation Score 7 - 10: 72.7% MACE over next 6 weeks - Early Invasive Strategies Allergies: Allergies: Allergies Coded Allergies Type Severity Reaction Last Updated Verified No Known Drug Allergies 06/14/17 No Physical Exam: PE: Constitutional: She is disheveled appearing, appears older than stated age, she is well-developed and well-nourished. She is mildly ill-appearing. HENT: Normocephalic, atraumatic, bilateral external ears normal, TMs are clear bilaterally. Mucous membranes are moist. Eyes: PERRL, conjunctiva normal, no discharge. She refuses to fully cooperate with very detailed extraocular movement testing but grossly extraocular muscles appear to be intact. There does appear to be bilateral horizontal nystagmus noted. Sclera are clear and anicteric Neck: Normal range of motion, no tenderness, supple, no stridor. No meningismus. Cardiovascular:Heart rate regular rhythm, +2 radial and dorsalis pedis pulses bilaterally Lungs & Thorax: Bilateral breath sounds clear to auscultation, equal chest rise, diminished minimally in the bilateral bases. No distress. Abdomen: Abdomen is obese, soft, nondistended, no tenderness to palpation. Skin: There is diaphoresis noted of her face, scalp and chest and abdomen. She has multiple scabbed lesions on her face, bilateral upper and lower extremities, which appear to be scratch/pick toure. No focal areas of erythema, fluctuance, drainage, or tenderness. Back: No tenderness, no deformity. Extremities: No tenderness, no cyanosis, no clubbing, ROM intact, no edema. No limb deformity. No calf tenderness. Neurologic: She is resting on the ED gurney with her eyes closed, but she responds to voice. She opens her eyes when commanded to do so. Therefore, I would qualify her as slightly drowsy. She is oriented x3. Cranial nerves II through XII are grossly intact. Sensation is grossly intact. She is moving all 4 extremities equally. Equal supervisor landscape strength bilaterally. Refuses to cooperate with testing for limb ataxia or dysmetria. No evidence of aphasia. The minimal speech that she will elicit for me appears to be fluent. Psychologic: Bizarre, flat affect. EKG: EKG: EKG is interpreted at 1236 Rhythm is sinus Rate is 69 bpm [place] is normal QTC is 475 ms No STEMI Radiology/Procedures: Radiology/Procedures: IMAGING REPORT Signed PATIENT: LINDSEY MARX ACCOUNT: [id number] : 1970 LOCATION: ER AGE: 51 SEX: F EXAM STATUS: REG ER ORD. PHYSICIAN: SANA HAMLIN DO REASON: dizziness PROCEDURE: CT HEAD WO CONTRAST CT Head W/O Contrast: History: Reason: dizziness not a stroke protocol: Comparison: September 18, 2020 Axial images were obtained without contrast. There is a 1 cm x 0.4 similar hypoattenuating lesion in the right parasagittal frontal lobe just anterior to the anterior horn of the right lateral ventricle. The remaining elder and white matter appears normal and symmetrical for the patients age. There is no mass effect, extraaxial fluid collections or hydrocephalus. There is no gross bleed. There is no focal loss of elder-white matter distinction to suggest acute ischemia, i.e. stroke. There is a gaze to the right. Impression: 1. Lacunar infarct on the right appears subacute or old but was not present in September. 2. Gaze to the right. End impression PQRS Compliance Statement: One or more of the following individualized dose reduction techniques were utilized for this examination: 1. Automated exposure control 2. Adjustment of the mA and/or kV according to patient size 3. Use of iterative reconstruction technique Electronically signed by: Kate Botello III, MD (05/08/2021 1:30 PM) [facility] DICTATED and SIGNED BY: KATE BOTELLO III, MD DATE: 05/08/21 [id number] IMAGING REPORT Signed PATIENT: LINDSEY MARX ACCOUNT: [id number] : 1970 LOCATION: ER AGE: 51 SEX: F EXAM STATUS: PRE ER ORD. PHYSICIAN: SANA HAMLIN DO REASON: dizziness PROCEDURE: PORTABLE CHEST 1V XR CHEST 1V History: Reason: dizziness / Spl. Instructions: / History: Comparison: September 15, 2020 Findings: Mild patchy bibasilar opacities. No pleural effusion. No pneumothorax. Unchanged heart size. Low lung volumes. Impression: 1. Low lung volumes with mild patchy bibasilar opacities, most likely atelectasis. If persistent clinical concern, recommend follow-up. Electronically signed by: Roscoe Cotter DO (05/08/2021 1:03 PM) [id number] DICTATED and SIGNED BY: ROSCOE COTTER DO DATE: 05/08/21 [id number] Course & Med Decision Making: Course & Med Decision Making Pertinent Labs and Imaging studies reviewed. (See chart for details) The patient was largely uncooperative throughout the ED course. I went to examine her multiple times, and she was wildly thrashing about the ED gurney, refusing to sit up or cooperate with exam. I asked her multiple times to please allow me to formally examine her more thoroughly. She finally did quiets this request, while frequently cursing at me. She does have some persistent bilateral horizontal nystagmus. She did begin to vomit. She has an otherwise nonfocal neurologic exam. She is given IV fluids, IV Zofran, IV Benadryl. Her blood pressure did increase, and then she began complaining of a headache. She is given Toradol and IV labetalol. Her blood pressure and improved, and her headache improved and her nausea and vomiting resolved. She is unable to ambulate successfully, so I explained the plan for admission and neurology consultation. I did discuss the findings of subacute infarct on her CT, and she was unaware of this. She is finally agreeable to admission. She is accepted for admission by Dr. Monaco. Geri Disclaimer: Geri Disclaimer: This electronic medical record was generated, in whole or in part, using a voice recognition dictation system. Departure Departure Impression: Primary Impression: Vertigo Additional Impressions: Nausea & vomiting History of CVA (cerebrovascular accident) Uncontrolled hypertension Methamphetamine abuse Non-compliance Disposition: ADMITTED INPATIENT Admitting Physician: KELVIN Condition: IMPROVED Referrals: NO PCP (PCP) SANA HAMLIN DO May 08, 2021 12:45
--- NOTE | 2021-05-08 13:05 | RAD ---
XR CHEST 1V History: Reason: dizziness / Spl. Instructions: / History: Comparison: September 15, 2020 Findings: Mild patchy bibasilar opacities. No pleural effusion. No pneumothorax. Unchanged heart size. Low lung volumes. Impression: 1. Low lung volumes with mild patchy bibasilar opacities, most likely atelectasis. If persistent cli nical concern, recommend follow-up. Electronically signed by: Roscoe Cotter DO (05/08/2021 1:03 PM) [id number]
[2021-05-08 13:10] LABS: BASO % 1 % (0-3); EOS # 0.1 x10^3/uL (0.0-0.7); EOS % 2 % (0-3); HEMATOCRIT 39.7 % (36.0-47.0); HEMOGLOBIN 13.4 g/dL (12.0-15.5); LYMPH # 2.5 x10^3/uL (1.0-4.8); LYMPH % 49 % (24-48); MEAN CORPUSCULAR HEMOGLOBIN 28 pg (25-35); MEAN CORPUSCULAR HGB CONC 34 g/dL (31-37); MEAN CORPUSCULAR VOLUME 83 fL (79-100); MONO # 0.4 x10^3/uL (0.0-1.1); MONO % 7 % (0-9); NEUT # 2.1 x10^3/uL (1.8-7.7); NEUT % 41 % (31-73); PLATELET COUNT 172 x10^3/uL (140-400); RED BLOOD COUNT 4.77 x10^6/uL (3.50-5.40); RED CELL DISTRIBUTION WIDTH 17.1 % (11.5-14.5); WHITE BLOOD COUNT 5.1 x10^3/uL (4.0-11.0)
[2021-05-08 13:16] LABS: CALCIUM 9.1 mg/dL (8.5-10.1); CREATININE 0.8 mg/dL (0.6-1.0); GFR 75.3; POTASSIUM 3.2 mmol/L (3.5-5.1)
[2021-05-08 13:27] LABS: ALBUMIN 3.7 g/dL (3.4-5.0); ALBUMIN/GLOBULIN RATIO 0.7 (1.0-1.7); TOTAL BILIRUBIN 0.7 mg/dL (0.2-1.0); TOTAL PROTEIN 8.8 g/dL (6.4-8.2)
--- NOTE | 2021-05-08 13:33 | RAD ---
CT Head W/O Contrast: History: Reason: dizziness not a stroke protocol: Comparison: September 18, 2020 Axial images were obtained without contrast. There is a 1 cm x 0.4 similar hypoattenuating lesion in the right parasagittal frontal lobe just ante rior to the anterior horn of the right lateral ventricle. The remaining elder and white matter appears normal and symmetrical for the patients age. There is no mass effect, extraaxial fluid collections or hydrocephalus. There is no gross bleed. There is no f ocal loss of elder-white matter distinction to suggest acute ischemia, i.e. stroke. There is a gaze to the right. Impression: 1. Lacunar infarct on the right appears subacute or old but was not present in September. 2. Gaze to the right. End impression PQRS Compliance Statement: One or more of the following individualized dose reduction techniques were utilized for this examinat ion: 1. Automated exposure control 2. Adjustment of the mA and/or kV according to patient size 3. Use of iterative reconstruction technique Electronically signed by: Brad Gloria III, MD (05/08/2021 1:30 PM) [facility]
[2021-05-08 14:31] LABS: BARBITURATES NEG (NEG); BENZODIAZEPINES NEG (NEG); CANNABINOIDS NEG (NEG); COCAINE NEG (NEG); METHADONE NEG (NEG); OPIATES NEG (NEG); PHENCYCLIDINE NEG (NEG)
[2021-05-08 14:34] LABS: AMPHETAMINE/METHAMPHETAMINE POS (NEG)
[2021-05-08] MEDS ORDERED: ONDANSETRON PF 4 MG/2 ML VIAL. IVP ONE (16:00)
[2021-05-08] MEDS ORDERED: LABETALOL 20 MG/4 ML DISP.SYRIN. IVP ONE ×2 (16:15→17:30)
[2021-05-08] MEDS ORDERED: KETOROLAC 15 MG/ML VIAL. IVP ONE (16:15)
[2021-05-08] MEDS ORDERED: diphenhydrAMINE 50 MG/ML VIAL IVP ONE (16:15)
[2021-05-08] MEDS ORDERED: ONDANSETRON PF 4 MG/2 ML VIAL. IVP PRN ×2 (16:30→18:30)
[2021-05-08] MEDS ORDERED: ASPIRIN ENTERIC COATED 325 MG TABLET.DR. PO ONE (17:00)
[2021-05-08 18:20] VITALS: BP 181/114
[2021-05-08] MEDS ORDERED: LABETALOL 20 MG/4 ML DISP.SYRIN. IVP PRN (18:30)
[2021-05-08] MEDS ORDERED: DEXTROSE 50% 25 GM / 50ML DISP.SYRIN. IV PRN (18:30)
[2021-05-08] MEDS ORDERED: SENNOSIDES 8.6 MG TABLET PO PRN (18:30)
[2021-05-08] MEDS ORDERED: hydrALAZINE 20 MG/ML VIAL. IVP PRN (18:30)
[2021-05-08] MEDS ORDERED: DOCUSATE SODIUM 100 MG CAPSULE. PO PRN (18:30)
[2021-05-08] MEDS ORDERED: ACETAMINOPHEN 325 MG TABLET. PO PRN (18:30)
--- NOTE | 2021-05-08 18:33 | PDOC1 ---
History and Physical Date of Service: DOS: DATE: 05/08/21 TIME: 18:29 Chief Complaint: Chief Complain: Dizziness History of Present Illness: HPI: Hx obtained from discussion with the ED physician and chart review: 51 year old female who [place] of dizziness. She describes vertigo symptoms. She reports that she has experienced the same symptoms previously. She reports that she was feeling fine and then she had abrupt onset of dizziness while sitting playing slot machines. She denies fall or head injury or loss of consciousness. She denies numbness tingling or focal motor weakness. She denies chest pain or dyspnea. She denies abdominal pain. She reports mild nausea, without vomiting. She is an extremely poor historian and does not seem to be completely willing to participate in her care or provide more detailed history. She admits to using methamphetamine yesterday. She has a history of recently diagnosed type 2 diabetes as well as hypertension. She admits that she has not taken any of her prescribed medications "in a while." Past Medical/Surgical History: PMH/PSH: Past Medical History: Diabetes-Type II, Hypertension, Hepatitis, OCD,ADHD, ENCEPHALITIS, PLEURISEY Past Surgical History: , Tubal ligation Allergies: Allergies: Coded Allergies: No Known Drug Allergies (Unverified , 06/14/17) Family History: Family History: Reviewed with no relevant findings Social History: Social History: Smoking Status: Current Every Day Smoker Alcohol Use: None Drug Use: Marijuana, Methamphetamine Current Medications: Current Medications Current Medications Sodium Chloride 1,000 ml @ 1,000 mls/hr 1X ONCE IV Last administered on 05/08/21at 12:55; Start 05/08/21 at 12:45; Stop 05/08/21 at 13:44; Status DC Ondansetron HCl (Zofran) 4 mg 1X ONCE IVP Last administered on 05/08/21at 16:11; Start 05/08/21 at 16:00; Stop 05/08/21 at 16:01; Status DC Ketorolac Tromethamine (Toradol 15mg Vial) 15 mg 1X ONCE IVP Last administered on 05/08/21at 16:52; Start 05/08/21 at 16:15; Stop 05/08/21 at 16:20; Status DC Diphenhydramine HCl (Benadryl) 25 mg 1X ONCE IVP Last administered on 05/08/21at 16:52; Start 05/08/21 at 16:15; Stop 05/08/21 at 16:20; Status DC Labetalol HCl (Normodyne Iv Push) 10 mg 1X ONCE IVP Last administered on 05/08/21at 16:53; Start 05/08/21 at 16:15; Stop 05/08/21 at 16:20; Status DC Ondansetron HCl (Zofran) 4 mg PRN Q8HRS PRN IVP NAUSEA/VOMITING; Start 05/08/21 at 16:30; Stop 05/09/21 at 16:29 Sodium Chloride 1,000 ml @ 125 mls/hr 1X ONCE IV Last administered on 05/08/21at 16:55; Start 05/08/21 at 16:30; Stop 05/09/21 at 00:29 Aspirin (Ecotrin) 325 mg 1X ONCE PO ; Start 05/08/21 at 17:00; Stop 05/08/21 at 17:01; Status DC Labetalol HCl (Normodyne Iv Push) 10 mg 1X ONCE IVP ; Start 05/08/21 at 17:30; Stop 05/08/21 at 17:31; Status DC Sennosides (Senna) 17.2 mg PRN BID PRN PO CONSTIPATION; Start 05/08/21 at 18:30; Status UNV Docusate Sodium (Colace) 100 mg PRN DAILY PRN PO HARD STOOLS; Start 05/08/21 at 18:30; Status UNV Ondansetron HCl (Zofran) 4 mg PRN Q6HRS PRN IVP NAUSEA/VOMITING; Start 05/08/21 at 18:30; Status UNV Dextrose (Dextrose 50%-Water Syringe) 12.5 gm PRN Q15MIN PRN IV SEE COMMENTS; Start 05/08/21 at 18:30; Status UNV Sodium Chloride 1,000 ml @ 100 mls/hr Q10H IV ; Start 05/08/21 at 18:30; Status UNV Acetaminophen (Tylenol) 650 mg PRN Q4HRS PRN PO TEMP OVER 100.4F OR MILD PAIN; Start 05/08/21 at 18:30; Status UNV Lorazepam (Ativan) 0.5 mg PRN Q6HRS PRN PO ANXIETY / AGITATION; Start 05/08/21 at 18:30; Status UNV Lorazepam (Ativan Inj) 0.25 mg PRN Q4HRS PRN IV ANXIETY / AGITATION; Start 05/08/21 at 18:30; Status UNV Enoxaparin Sodium (Lovenox 40mg Syringe) 40 mg Q24H SQ ; Start 05/08/21 at 18:30; Status UNV Prochlorperazine Edisylate (Compazine) 10 mg PRN Q6HRS PRN IV NAUSEA/VOMITING; Start 05/08/21 at 18:30; Status UNV Zolpidem Tartrate (Ambien) 2.5 mg PRN QHS PRN PO INSOMNIA; Start 05/08/21 at 18:30; Status UNV Active Scripts Active Lisinopril 5 Mg Tablet 1 Tab PO DAILY Paqets-Dbeayyem-Fesf 50-325-40 (Butalb/Acetaminophen/Caffeine) 1 Each Tablet 1 Tab PO PRN Q6HRS PRN Doxycycline Hyclate 100 Mg Tablet 1 Tab PO BID Glucophage (Metformin Hcl) 850 Mg Tablet 850 Mg PO BIDWMEALS Amlodipine Besylate 5 Mg Tablet 5 Mg PO DAILY Metoprolol Tartrate 25 Mg Tablet 25 Mg PO BID Reported No Known Medications Prior To Admisstion (Info) Each 1 Each UNK ROS: Review of Systems Review of System REVIEW OF SYSTEMS: GENERAL: Denies weakness SKIN: No bruising, hair changes or rashes. EYES: No blurred, double or loss of vision. NOSE AND THROAT: No history of nosebleeds, hoarseness or sore throat. HEART: No history of palpitations, chest pain or shortness of breath on exertion. LUNGS: Denies cough, hemoptysis, wheezing or shortness of breath. GASTROINTESTINAL: Denies changes in appetite, nausea, vomiting, diarrhea or constipation. GENITOURINARY: No history of frequency, urgency, hesitancy or nocturia. NEUROLOGIC: Denies history of numbness, tingling, or tremor. PSYCHIATRIC: No history of panic, anxiety or depression. ENDOCRINE: No history of heat or cold intolerance, polyuria or polydipsia. EXTREMITIES: Denies joint pain, pain on walking or stiffness. Physical Exam: Vital Signs: Vital Signs Date Time Temp Pulse Resp B/P (MAP) Pulse Ox O2 Delivery O2 Flow Rate FiO2 05/08/21 17:29 75 173/74 (107) 97 Room Air 05/08/21 12:30 98.6 20 98.6 Physcial Exam: GEN: No apparent distress. Alert and oriented HEENT: Normal cephalic, atraumatic, external auditory canals are patent EYES: Extraocular muscles are intact, pupil are equally round and reactive to light and accommodation MUSCULOSKELETAL: Well developed , well nourished, good range of motion ENDOCRINE: No thyromegaly was palpated LYMPHATICS: No cervical chain or axillary nodes were noted HEMATOPOIETIC: No bruising NECK: Supple, no JVD, no thyromegaly was noted LUNGS: Clear to auscultation in all lung gonsalves without rhonchi or wheezing HEART: RRR, S!, S2 present. Peripheral pulses intact, no obvious murmurs noted ABDOMEN: Soft, nontender. Positive bowel sounds, no organomegaly, normal bowel sounds EXTREMITIES: Without clubbing, cyanosis, or edema. Pedal pulses intact. Negative Homans sign NEUROLOGIC: Normal speech and tone. A&O x 3, moves all extremities, no obvious focal deficits PSYCHIATRIC: Normal affect, normal mood. Stable SKIN: No ulcerations or rashes, good skin turgor, no jaundice VASCULAR: Good capillary refill, neurovascular bundle appears to be intact Labs: Labs: Laboratory Tests Test 05/08/21 12:32 05/08/21 12:38 05/08/21 12:45 05/08/21 14:10 Glucose (Fingerstick) 156 mg/dL (70-99) White Blood Count 5.1 x10^3/uL (4.0-11.0) Red Blood Count 4.77 x10^6/uL (3.50-5.40) Hemoglobin 13.4 g/dL (12.0-15.5) Hematocrit 39.7 % (36.0-47.0) Mean Corpuscular Volume 83 fL (79-100) Mean Corpuscular Hemoglobin 28 pg (25-35) Mean Corpuscular Hemoglobin Concent 34 g/dL (31-37) Red Cell Distribution Width 17.1 % (11.5-14.5) Platelet Count 172 x10^3/uL (140-400) Neutrophils (%) (Auto) 41 % (31-73) Lymphocytes (%) (Auto) 49 % (24-48) Monocytes (%) (Auto) 7 % (0-9) Eosinophils (%) (Auto) 2 % (0-3) Basophils (%) (Auto) 1 % (0-3) Neutrophils # (Auto) 2.1 x10^3/uL (1.8-7.7) Lymphocytes # (Auto) 2.5 x10^3/uL (1.0-4.8) Monocytes # (Auto) 0.4 x10^3/uL (0.0-1.1) Eosinophils # (Auto) 0.1 x10^3/uL (0.0-0.7) Basophils # (Auto) 0.0 x10^3/uL (0.0-0.2) Sodium Level 140 mmol/L (136-145) Potassium Level 3.2 mmol/L (3.5-5.1) Chloride Level 102 mmol/L (98-107) Carbon Dioxide Level 27 mmol/L (21-32) Anion Gap 11 (6-14) Blood Urea Nitrogen 11 mg/dL (7-20) Creatinine 0.8 mg/dL (0.6-1.0) Estimated GFR (Cockcroft-Gault) 75.3 BUN/Creatinine Ratio 14 (6-20) Glucose Level 151 mg/dL (70-99) Calcium Level 9.1 mg/dL (8.5-10.1) Magnesium Level 2.0 mg/dL (1.8-2.4) Total Bilirubin 0.7 mg/dL (0.2-1.0) Aspartate Amino Transf (AST/SGOT) 136 U/L (15-37) Alanine Aminotransferase (ALT/SGPT) 198 U/L (14-59) Alkaline Phosphatase 127 U/L (46-116) Creatine Kinase 84 U/L (26-192) Troponin I Quantitative < 0.017 ng/mL (0.000-0.055) Total Protein 8.8 g/dL (6.4-8.2) Albumin 3.7 g/dL (3.4-5.0) Albumin/Globulin Ratio 0.7 (1.0-1.7) Ethyl Alcohol Level < 10 mg/dL (0-10) Urine Opiates Screen Neg (NEG) Urine Methadone Screen Neg (NEG) Urine Barbiturates Neg (NEG) Urine Phencyclidine Screen Neg (NEG) Urine Amphetamine/Methamphetamine Pos (NEG) Urine Benzodiazepines Screen Neg (NEG) Urine Cocaine Screen Neg (NEG) Urine Cannabinoids Screen Neg (NEG) Urine Ethyl Alcohol Neg (NEG) Laboratory Tests Test 05/08/21 12:32 05/08/21 12:38 05/08/21 12:45 05/08/21 14:10 Glucose (Fingerstick) 156 mg/dL (70-99) White Blood Count 5.1 x10^3/uL (4.0-11.0) Red Blood Count 4.77 x10^6/uL (3.50-5.40) Hemoglobin 13.4 g/dL (12.0-15.5) Hematocrit 39.7 % (36.0-47.0) Mean Corpuscular Volume 83 fL (79-100) Mean Corpuscular Hemoglobin 28 pg (25-35) Mean Corpuscular Hemoglobin Concent 34 g/dL (31-37) Red Cell Distribution Width 17.1 % (11.5-14.5) Platelet Count 172 x10^3/uL (140-400) Neutrophils (%) (Auto) 41 % (31-73) Lymphocytes (%) (Auto) 49 % (24-48) Monocytes (%) (Auto) 7 % (0-9) Eosinophils (%) (Auto) 2 % (0-3) Basophils (%) (Auto) 1 % (0-3) Neutrophils # (Auto) 2.1 x10^3/uL (1.8-7.7) Lymphocytes # (Auto) 2.5 x10^3/uL (1.0-4.8) Monocytes # (Auto) 0.4 x10^3/uL (0.0-1.1) Eosinophils # (Auto) 0.1 x10^3/uL (0.0-0.7) Basophils # (Auto) 0.0 x10^3/uL (0.0-0.2) Sodium Level 140 mmol/L (136-145) Potassium Level 3.2 mmol/L (3.5-5.1) Chloride Level 102 mmol/L (98-107) Carbon Dioxide Level 27 mmol/L (21-32) Anion Gap 11 (6-14) Blood Urea Nitrogen 11 mg/dL (7-20) Creatinine 0.8 mg/dL (0.6-1.0) Estimated GFR (Cockcroft-Gault) 75.3 BUN/Creatinine Ratio 14 (6-20) Glucose Level 151 mg/dL (70-99) Calcium Level 9.1 mg/dL (8.5-10.1) Magnesium Level 2.0 mg/dL (1.8-2.4) Total Bilirubin 0.7 mg/dL (0.2-1.0) Aspartate Amino Transf (AST/SGOT) 136 U/L (15-37) Alanine Aminotransferase (ALT/SGPT) 198 U/L (14-59) Alkaline Phosphatase 127 U/L (46-116) Creatine Kinase 84 U/L (26-192) Troponin I Quantitative < 0.017 ng/mL (0.000-0.055) Total Protein 8.8 g/dL (6.4-8.2) Albumin 3.7 g/dL (3.4-5.0) Albumin/Globulin Ratio 0.7 (1.0-1.7) Ethyl Alcohol Level < 10 mg/dL (0-10) Urine Opiates Screen Neg (NEG) Urine Methadone Screen Neg (NEG) Urine Barbiturates Neg (NEG) Urine Phencyclidine Screen Neg (NEG) Urine Amphetamine/Methamphetamine Pos (NEG) Urine Benzodiazepines Screen Neg (NEG) Urine Cocaine Screen Neg (NEG) Urine Cannabinoids Screen Neg (NEG) Urine Ethyl Alcohol Neg (NEG) Images: Images PROCEDURE: CT HEAD WO CONTRAST CT Head W/O Contrast: History: Reason: dizziness not a stroke protocol: Comparison: September 18, 2020 Axial images were obtained without contrast. There is a 1 cm x 0.4 similar hypoattenuating lesion in the right parasagittal frontal lobe just anterior to the anterior horn of the right lateral ventricle. The remaining elder and white matter appears normal and symmetrical for the patients age. There is no mass effect, extraaxial fluid collections or hydrocephalus. There is no gross bleed. There is no focal loss of elder-white matter distinction to suggest acute ischemia, i.e. stroke. There is a gaze to the right. Impression: 1. Lacunar infarct on the right appears subacute or old but was not present in September. 2. Gaze to the right. Assessment/Plan Assessment/Plan Acute toxic and metabolic encephalopathy Mild Hypokalemia Peripheral vertigo Subacute to chronic thalamic infarct Inability to ambulate Debilitation Methamphetamine abuse Transaminitis Admit to hospitalist service for further management Ativan as needed for agitative episodes No IV electrolytes replacement as needed Neurology consult Orthostatic vital signs PT OT Lovenox for DVT prophylaxis Cardiac diet CODE STATUS full Discussed with RN and SW Disposition inpatient management as above, patient is homeless DPOA: Undesignated Justifications for Admission Other Justification Vertigo and Acute toxic encephalopathy PABLITO JACK MD May 08, 2021 18:33
[2021-05-08] MEDS: ZOLPIDEM 5 MG TABLET. PO PRN (20:26)
[2021-05-08] MEDS: LORazepam 0.5 MG TABLET PO PRN (20:27)
[2021-05-08] MEDS: IV NORMAL SALINE 1000ML BAG 1,000 ML IV SCH (20:27)
[2021-05-08 23:00] VITALS: BP 172/86
[2021-05-09 03:00] VITALS: BP 151/102
[2021-05-09] MEDS: IV NORMAL SALINE 1000ML BAG 1,000 ML IV SCH ×2 (04:30→15:03)
[2021-05-09 05:02] LABS: BASO % 0 % (0-3); EOS # 0.1 x10^3/uL (0.0-0.7); EOS % 1 % (0-3); HEMATOCRIT 38.7 % (36.0-47.0); HEMOGLOBIN 12.7 g/dL (12.0-15.5); LYMPH % 46 % (24-48); MEAN CORPUSCULAR HEMOGLOBIN 28 pg (25-35); MEAN CORPUSCULAR HGB CONC 33 g/dL (31-37); MEAN CORPUSCULAR VOLUME 84 fL (79-100); MONO # 0.3 x10^3/uL (0.0-1.1); MONO % 7 % (0-9); NEUT % 45 % (31-73); PLATELET COUNT 143 x10^3/uL (140-400); RED CELL DISTRIBUTION WIDTH 16.9 % (11.5-14.5); WHITE BLOOD COUNT 4.4 x10^3/uL (4.0-11.0)
[2021-05-09 05:19] LABS: CREATININE 0.7 mg/dL (0.6-1.0); GFR 87.9; PHOSPHORUS 3.8 mg/dL (2.6-4.7); POTASSIUM 3.5 mmol/L (3.5-5.1)
[2021-05-09 07:00] VITALS: BP 157/67
--- NOTE | 2021-05-09 08:51 | PDOC2 ---
NEUROLOGY CONSULT Date of Service DOS: DATE: 05/09/21 TIME: 08:44 Reason for Consult Reason for Consult: Subacute lacunar infarct, vertigo Referring Physician Referring Physician: Dr. Monaco Source Source: Chart review, Patient History of Present Illness History of Present Illness The patient is a 51-year-old right-handed female who was [place] a casino and complained of sudden onset of vertigo. She had this same problem in October and was in the emergency department for benign positional vertigo. CT head was negative. Indeed, vertigo is worse when she tilts her head to the left. There is no tinnitus, hearing loss, dysarthria, dysphagia, diplopia, numbness, or weakness. She had a head CT last night which is abnormal as reviewed below. She denies any history of stroke, seizure, or head injury. Patient says that she is basically homeless, living in some friend's apartment who are infected from it, waiting to be evicted herself, but she was locked out of the apartment building and unable to get to her medications for the last several days. She sees a clinic doctor at who prescribed medication for diabetes and hypertension. Blood pressure was elevated in the emergency department. Past Medical History Cardiovascular: HTN CENTRAL NERVOUS SYSTEM: Vertigo Hepatobiliary: Hep A/B/C (C) Psych: Anxiety, Addictions, Depression Endocrine: Diabetes Past Surgical History Past Surgical History: No pertinent history Family History Family History: Other (Mother had myasthenia gravis) Social History Social History Single, unemployed, uses tobacco, occasional alcohol, occasional methamphetamine Current Medications Current Medications Current Medications Sodium Chloride 1,000 ml @ 1,000 mls/hr 1X ONCE IV Last administered on 05/08/21at 12:55; Start 05/08/21 at 12:45; Stop 05/08/21 at 13:44; Status DC Ondansetron HCl (Zofran) 4 mg 1X ONCE IVP Last administered on 05/08/21at 16:11; Start 05/08/21 at 16:00; Stop 05/08/21 at 16:01; Status DC Ketorolac Tromethamine (Toradol 15mg Vial) 15 mg 1X ONCE IVP Last administered on 05/08/21at 16:52; Start 05/08/21 at 16:15; Stop 05/08/21 at 16:20; Status DC Diphenhydramine HCl (Benadryl) 25 mg 1X ONCE IVP Last administered on 05/08/21at 16:52; Start 05/08/21 at 16:15; Stop 05/08/21 at 16:20; Status DC Labetalol HCl (Normodyne Iv Push) 10 mg 1X ONCE IVP Last administered on 05/08at 16:53; Start 05/08/21 at 16:15; Stop 05/08/21 at 16:20; Status DC Ondansetron HCl (Zofran) 4 mg PRN Q8HRS PRN IVP NAUSEA/VOMITING; Start 05/08/21 at 16:30; Stop 05/09/21 at 16:29 Sodium Chloride 1,000 ml @ 125 mls/hr 1X ONCE IV Last administered on 05/08/21at 16:55; Start 05/08/21 at 16:30; Stop 05/09/21 at 00:29; Status DC Aspirin (Ecotrin) 325 mg 1X ONCE PO Last administered on 05/08/21at 20:27; Start 05/08/21 at 17:00; Stop 05/08/21 at 17:01; Status DC Labetalol HCl (Normodyne Iv Push) 10 mg 1X ONCE IVP ; Start 05/08/21 at 17:30; Stop 05/08/21 at 17:31; Status DC Sennosides (Senna) 17.2 mg PRN BID PRN PO CONSTIPATION; Start 05/08/21 at 18:30 Docusate Sodium (Colace) 100 mg PRN DAILY PRN PO HARD STOOLS; Start 05/08/21 at 18:30 Ondansetron HCl (Zofran) 4 mg PRN Q6HRS PRN IVP NAUSEA/VOMITING; Start 05/08/21 at 18:30 Dextrose (Dextrose 50%-Water Syringe) 12.5 gm PRN Q15MIN PRN IV SEE COMMENTS; Start 05/08/21 at 18:30 Sodium Chloride 1,000 ml @ 100 mls/hr Q10H IV Last administered on 05/09/21at 04:30; Start 05/08/21 at 18:30 Acetaminophen (Tylenol) 650 mg PRN Q4HRS PRN PO TEMP OVER 100.4F OR MILD PAIN; Start 05/08/21 at 18:30 Lorazepam (Ativan) 0.5 mg PRN Q6HRS PRN PO ANXIETY / AGITATION Last administered on 05/08/21at 20:27; Start 05/08/21 at 18:30 Lorazepam (Ativan Inj) 0.25 mg PRN Q4HRS PRN IV ANXIETY / AGITATION; Start 05/08/21 at 18:30 Enoxaparin Sodium (Lovenox 40mg Syringe) 40 mg Q24H SQ ; Start 05/09/21 at 09:00 Prochlorperazine Edisylate (Compazine) 10 mg PRN Q6HRS PRN IV NAUSEA/VOMITING; Start 05/08/21 at 18:30 Zolpidem Tartrate (Ambien) 2.5 mg PRN QHS PRN PO INSOMNIA Last administered on 05/08/21at 20:26; Start 05/08/21 at 18:30 Hydralazine HCl (Apresoline Inj) 10 mg PRN Q4HRS PRN IVP ELEV BP,SEE COMMENT ,2ND CHOICE; Start 05/08/21 at 18:30 Labetalol HCl (Normodyne Iv Push) 20 mg PRN Q2HRS PRN IVP HYPERTENSION, 1ST CHOICE; Start 05/08/21 at 18:30 Active Scripts Active Lisinopril 5 Mg Tablet 1 Tab PO DAILY Ejogft-Dscctqvz-Zhlw 50-325-40 (Butalb/Acetaminophen/Caffeine) 1 Each Tablet 1 Tab PO PRN Q6HRS PRN Doxycycline Hyclate 100 Mg Tablet 1 Tab PO BID Glucophage (Metformin Hcl) 850 Mg Tablet 850 Mg PO BIDWMEALS Amlodipine Besylate 5 Mg Tablet 5 Mg PO DAILY Metoprolol Tartrate 25 Mg Tablet 25 Mg PO BID Reported No Known Medications Prior To Admisstion (Info) Each 1 Each UNK Allergies Allergies: Coded Allergies: No Known Drug Allergies (Unverified , 06/14/17) ROS Review of System Negative for fever, chills, weight loss, shortness of breath, chest pain, indigestion, hematochezia, melena, and dysuria. Full 14-point review of systems is negative. Physical Exam Physical Examination General: Well-developed, well-nourished, white female, in no acute distress HEENT: Normocephalic andatraumatic. Tympanic membranes clear.Temporal arteriespulsatile and nontender. Neck: Supple without bruit, no meningismus Musculoskeletal: Stability:see neurologic. Gait exam:see neurologic. Tone:see neurologic.Strength:see neurologic. Neurological: Mental Status:intact, orientation, memory, attention span/concentration, language, fund of knowledge normal. Cranial Nerves:Pupils equal and reactive to light, extraocular movements areintact, visual gonsalves are full to confrontation. Facial sensation is normal. There is no facial asymmetry. Vestibulo-ocular reflex is intact. Few beats of nystagmus on [place] head hanging left. Palate elevates and tongue protrudes in midline. All other cranial related problems are negative except as mentioned before.Reflexes:2+ and symmetric with flexor plantar responses. Motor:5/5 strength with normal tone and bulk. Coordination:Finger-nose finger and cfqr-tw-[id number] testing are normal. Rapid alternating movements and fine finger movements are intact. Gait:Stands with a wide-base, unable to take more than 1 step. Sensory:Normal pinprick, vibration, light touch, proprioception. Vitals VITALS Vital Signs Date Time Temp Pulse Resp B/P (MAP) Pulse Ox O2 Delivery O2 Flow Rate FiO2 05/09/21 08:02 Room Air 05/09/21 07:00 97.0 74 18 157/67 (97) 95 97.0 Labs Labs Laboratory Tests Test 05/08/21 12:32 05/08/21 12:38 05/08/21 12:45 05/08/21 14:10 Glucose (Fingerstick) 156 mg/dL (70-99) White Blood Count 5.1 x10^3/uL (4.0-11.0) Red Blood Count 4.77 x10^6/uL (3.50-5.40) Hemoglobin 13.4 g/dL (12.0-15.5) Hematocrit 39.7 % (36.0-47.0) Mean Corpuscular Volume 83 fL (79-100) Mean Corpuscular Hemoglobin 28 pg (25-35) Mean Corpuscular Hemoglobin Concent 34 g/dL (31-37) Red Cell Distribution Width 17.1 % (11.5-14.5) Platelet Count 172 x10^3/uL (140-400) Neutrophils (%) (Auto) 41 % (31-73) Lymphocytes (%) (Auto) 49 % (24-48) Monocytes (%) (Auto) 7 % (0-9) Eosinophils (%) (Auto) 2 % (0-3) Basophils (%) (Auto) 1 % (0-3) Neutrophils # (Auto) 2.1 x10^3/uL (1.8-7.7) Lymphocytes # (Auto) 2.5 x10^3/uL (1.0-4.8) Monocytes # (Auto) 0.4 x10^3/uL (0.0-1.1) Eosinophils # (Auto) 0.1 x10^3/uL (0.0-0.7) Basophils # (Auto) 0.0 x10^3/uL (0.0-0.2) Sodium Level 140 mmol/L (136-145) Potassium Level 3.2 mmol/L (3.5-5.1) Chloride Level 102 mmol/L (98-107) Carbon Dioxide Level 27 mmol/L (21-32) Anion Gap 11 (6-14) Blood Urea Nitrogen 11 mg/dL (7-20) Creatinine 0.8 mg/dL (0.6-1.0) Estimated GFR (Cockcroft-Gault) 75.3 BUN/Creatinine Ratio 14 (6-20) Glucose Level 151 mg/dL (70-99) Calcium Level 9.1 mg/dL (8.5-10.1) Magnesium Level 2.0 mg/dL (1.8-2.4) Total Bilirubin 0.7 mg/dL (0.2-1.0) Aspartate Amino Transf (AST/SGOT) 136 U/L (15-37) Alanine Aminotransferase (ALT/SGPT) 198 U/L (14-59) Alkaline Phosphatase 127 U/L (46-116) Creatine Kinase 84 U/L (26-192) Troponin I Quantitative < 0.017 ng/mL (0.000-0.055) Total Protein 8.8 g/dL (6.4-8.2) Albumin 3.7 g/dL (3.4-5.0) Albumin/Globulin Ratio 0.7 (1.0-1.7) Ethyl Alcohol Level < 10 mg/dL (0-10) Urine Opiates Screen Neg (NEG) Urine Methadone Screen Neg (NEG) Urine Barbiturates Neg (NEG) Urine Phencyclidine Screen Neg (NEG) Urine Amphetamine/Methamphetamine Pos (NEG) Urine Benzodiazepines Screen Neg (NEG) Urine Cocaine Screen Neg (NEG) Urine Cannabinoids Screen Neg (NEG) Urine Ethyl Alcohol Neg (NEG) Test 05/08/21 20:34 05/09/21 04:30 Glucose (Fingerstick) 146 mg/dL (70-99) White Blood Count 4.4 x10^3/uL (4.0-11.0) Red Blood Count 4.60 x10^6/uL (3.50-5.40) Hemoglobin 12.7 g/dL (12.0-15.5) Hematocrit 38.7 % (36.0-47.0) Mean Corpuscular Volume 84 fL (79-100) Mean Corpuscular Hemoglobin 28 pg (25-35) Mean Corpuscular Hemoglobin Concent 33 g/dL (31-37) Red Cell Distribution Width 16.9 % (11.5-14.5) Platelet Count 143 x10^3/uL (140-400) Neutrophils (%) (Auto) 45 % (31-73) Lymphocytes (%) (Auto) 46 % (24-48) Monocytes (%) (Auto) 7 % (0-9) Eosinophils (%) (Auto) 1 % (0-3) Basophils (%) (Auto) 0 % (0-3) Neutrophils # (Auto) 2.0 x10^3/uL (1.8-7.7) Lymphocytes # (Auto) 2.0 x10^3/uL (1.0-4.8) Monocytes # (Auto) 0.3 x10^3/uL (0.0-1.1) Eosinophils # (Auto) 0.1 x10^3/uL (0.0-0.7) Basophils # (Auto) 0.0 x10^3/uL (0.0-0.2) Sodium Level 140 mmol/L (136-145) Potassium Level 3.5 mmol/L (3.5-5.1) Chloride Level 105 mmol/L (98-107) Carbon Dioxide Level 26 mmol/L (21-32) Anion Gap 9 (6-14) Blood Urea Nitrogen 8 mg/dL (7-20) Creatinine 0.7 mg/dL (0.6-1.0) Estimated GFR (Cockcroft-Gault) 87.9 Glucose Level 109 mg/dL (70-99) Calcium Level 8.0 mg/dL (8.5-10.1) Phosphorus Level 3.8 mg/dL (2.6-4.7) Magnesium Level 2.0 mg/dL (1.8-2.4) Troponin I Quantitative < 0.017 ng/mL (0.000-0.055) Laboratory Tests Test 05/08/21 12:32 05/08/21 12:38 05/08/21 12:45 05/08/21 14:10 Glucose (Fingerstick) 156 mg/dL (70-99) White Blood Count 5.1 x10^3/uL (4.0-11.0) Red Blood Count 4.77 x10^6/uL (3.50-5.40) Hemoglobin 13.4 g/dL (12.0-15.5) Hematocrit 39.7 % (36.0-47.0) Mean Corpuscular Volume 83 fL (79-100) Mean Corpuscular Hemoglobin 28 pg (25-35) Mean Corpuscular Hemoglobin Concent 34 g/dL (31-37) Red Cell Distribution Width 17.1 % (11.5-14.5) Platelet Count 172 x10^3/uL (140-400) Neutrophils (%) (Auto) 41 % (31-73) Lymphocytes (%) (Auto) 49 % (24-48) Monocytes (%) (Auto) 7 % (0-9) Eosinophils (%) (Auto) 2 % (0-3) Basophils (%) (Auto) 1 % (0-3) Neutrophils # (Auto) 2.1 x10^3/uL (1.8-7.7) Lymphocytes # (Auto) 2.5 x10^3/uL (1.0-4.8) Monocytes # (Auto) 0.4 x10^3/uL (0.0-1.1) Eosinophils # (Auto) 0.1 x10^3/uL (0.0-0.7) Basophils # (Auto) 0.0 x10^3/uL (0.0-0.2) Sodium Level 140 mmol/L (136-145) Potassium Level 3.2 mmol/L (3.5-5.1) Chloride Level 102 mmol/L (98-107) Carbon Dioxide Level 27 mmol/L (21-32) Anion Gap 11 (6-14) Blood Urea Nitrogen 11 mg/dL (7-20) Creatinine 0.8 mg/dL (0.6-1.0) Estimated GFR (Cockcroft-Gault) 75.3 BUN/Creatinine Ratio 14 (6-20) Glucose Level 151 mg/dL (70-99) Calcium Level 9.1 mg/dL (8.5-10.1) Magnesium Level 2.0 mg/dL (1.8-2.4) Total Bilirubin 0.7 mg/dL (0.2-1.0) Aspartate Amino Transf (AST/SGOT) 136 U/L (15-37) Alanine Aminotransferase (ALT/SGPT) 198 U/L (14-59) Alkaline Phosphatase 127 U/L (46-116) Creatine Kinase 84 U/L (26-192) Troponin I Quantitative < 0.017 ng/mL (0.000-0.055) Total Protein 8.8 g/dL (6.4-8.2) Albumin 3.7 g/dL (3.4-5.0) Albumin/Globulin Ratio 0.7 (1.0-1.7) Ethyl Alcohol Level < 10 mg/dL (0-10) Urine Opiates Screen Neg (NEG) Urine Methadone Screen Neg (NEG) Urine Barbiturates Neg (NEG) Urine Phencyclidine Screen Neg (NEG) Urine Amphetamine/Methamphetamine Pos (NEG) Urine Benzodiazepines Screen Neg (NEG) Urine Cocaine Screen Neg (NEG) Urine Cannabinoids Screen Neg (NEG) Urine Ethyl Alcohol Neg (NEG) Test 05/08/21 20:34 05/09/21 04:30 Glucose (Fingerstick) 146 mg/dL (70-99) White Blood Count 4.4 x10^3/uL (4.0-11.0) Red Blood Count 4.60 x10^6/uL (3.50-5.40) Hemoglobin 12.7 g/dL (12.0-15.5) Hematocrit 38.7 % (36.0-47.0) Mean Corpuscular Volume 84 fL (79-100) Mean Corpuscular Hemoglobin 28 pg (25-35) Mean Corpuscular Hemoglobin Concent 33 g/dL (31-37) Red Cell Distribution Width 16.9 % (11.5-14.5) Platelet Count 143 x10^3/uL (140-400) Neutrophils (%) (Auto) 45 % (31-73) Lymphocytes (%) (Auto) 46 % (24-48) Monocytes (%) (Auto) 7 % (0-9) Eosinophils (%) (Auto) 1 % (0-3) Basophils (%) (Auto) 0 % (0-3) Neutrophils # (Auto) 2.0 x10^3/uL (1.8-7.7) Lymphocytes # (Auto) 2.0 x10^3/uL (1.0-4.8) Monocytes # (Auto) 0.3 x10^3/uL (0.0-1.1) Eosinophils # (Auto) 0.1 x10^3/uL (0.0-0.7) Basophils # (Auto) 0.0 x10^3/uL (0.0-0.2) Sodium Level 140 mmol/L (136-145) Potassium Level 3.5 mmol/L (3.5-5.1) Chloride Level 105 mmol/L (98-107) Carbon Dioxide Level 26 mmol/L (21-32) Anion Gap 9 (6-14) Blood Urea Nitrogen 8 mg/dL (7-20) Creatinine 0.7 mg/dL (0.6-1.0) Estimated GFR (Cockcroft-Gault) 87.9 Glucose Level 109 mg/dL (70-99) Calcium Level 8.0 mg/dL (8.5-10.1) Phosphorus Level 3.8 mg/dL (2.6-4.7) Magnesium Level 2.0 mg/dL (1.8-2.4) Troponin I Quantitative < 0.017 ng/mL (0.000-0.055) Images Images CT Head W/O Contrast: History: Reason: dizziness not a stroke protocol: Comparison: September 18, 2020 Axial images were obtained without contrast. There is a 1 cm x 0.4 similar hypoattenuating lesion in the right parasagittal frontal lobe just anterior to the anterior horn of the right lateral ventricle. The remaining elder and white matter appears normal and symmetrical for the patients age. There is no mass effect, extraaxial fluid collections or hydroc ephalus. There is no gross bleed. There is no focal loss of elder-white matter distinction to suggest acute ischemia, i.e. stroke. There is a gaze to the right. Impression: 1. Lacunar infarct on the right appears subacute or old but was not present in September. 2. Gaze to the right. Assessment/Plan Assessment/Plan Impression: Left vestibular neuronitis, also consider positional vertigo Incidental right parasagittal frontal lobe lacunar infarct, no clinical correlation Hypertensive encephalopathy Substance abuse, hypertension, diabetes, poor social situation Recommendations: MRI of the brain I do not think she needs full stroke work-up for this incidental finding unless the MRI is abnormal too showing acute abnormality Aspirin Check lipids Rehabilitation modalities Regulate blood pressure Home when safe. Thank you for letting me help with the patient's care. RIGO PARRA MD May 09, 2021 08:51
[2021-05-09] MEDS: ASPIRIN ENTERIC COATED 81 MG TABLET.DR. PO SCH (09:12)
[2021-05-09] MEDS: ENOXAPARIN 40 MG/0.4 ML SYRINGE. SQ SCH (09:13)
--- NOTE | 2021-05-09 10:47 | NUR ---
This RN received phone call from Destiney, supervisor [employer] who stated MRI is down today and will be up on Wednesday.
--- NOTE | 2021-05-09 10:53 | NUR ---
SW following. Discussed with RN, pt homeless, room air, ada diet. Neurology following - brain MRI scheduled. PAT consulted for Meth positive. PT/OT ordered. Med Assist following for self pay status. SEAN will continue to follow. Addendum: 05/09/21 at 1411 by JOCELYN ESTRADA Pratibha [facility]) met with pt, pt declined [facility] resources. Was provided with homeless resources.
[2021-05-09 11:00] VITALS: BP 179/98
[2021-05-09 15:00] VITALS: BP 183/86
[2021-05-09] MEDS: metFORMIN 850 MG TABLET PO SCH (17:27)
[2021-05-09 19:00] VITALS: BP 170/92
--- NOTE | 2021-05-09 20:24 | PDOC ---
[facility] PROGRESS NOTE Date of Service DOS: DATE: 05/09/21 TIME: 20:21 Chief Complaint Chief Complaint Dizziness History of Present Illness History of Present Illness Hx obtained from discussion with the ED physician and chart review: 51 year old female who is brought in by EMS from a local casino for report of dizziness. She describes vertigo symptoms. She reports that she has experienced the same symptoms previously. She reports that she was feeling fine and then she had abrupt onset of dizziness while sitting playing slot machines. She denies fall or head injury or loss of consciousness. She denies numbness tingling or focal motor weakness. She denies chest pain or dyspnea. She denies abdominal pain. She reports mild nausea, without vomiting. She is an extremely poor historian and does not seem to be completely willing to participate in her care or provide more detailed history. She admits to using methamphetamine yesterday. She has a history of recently diagnosed type 2 diabetes as well as hypertension. She admits that she has not taken any of her prescribed medications "in a while." 05/09 Patient evaluated and examined at bedside. Reports ongoing dizziness but really would not say much else. Home meds resumed today. PT OT. Evaluated by neurology today as well recommending MRI brain. Plan of care discussed with bedside RN Vitals/I&O Vitals/I&O: Vital Signs Date Time Temp Pulse Resp B/P (MAP) Pulse Ox O2 Delivery O2 Flow Rate FiO2 05/09/21 15:03 78 179/98 05/09/21 15:00 98.1 18 96 Room Air 98.1 I & O 05/08/21 05/08/21 05/09/21 15:00 23:00 07:00 Intake Total 60 ml Balance 60 ml Physical Exam Physical Exam: Neurologic, grossly normal. Cranial nerves grossly intact General: Alert, Oriented X3, Cooperative Heart: Regular rate, Normal S1, Normal S2 Lungs: Clear Abdomen: Normal bowel sounds, Soft, No tenderness Extremities: No edema, Normal pulses Skin: No significant lesion Labs Labs: Laboratory Tests Test 05/08/21 20:34 05/09/21 04:30 05/09/21 11:55 05/09/21 17:00 Glucose (Fingerstick) 146 mg/dL (70-99) 165 mg/dL (70-99) 136 mg/dL (70-99) White Blood Count 4.4 x10^3/uL (4.0-11.0) Red Blood Count 4.60 x10^6/uL (3.50-5.40) Hemoglobin 12.7 g/dL (12.0-15.5) Hematocrit 38.7 % (36.0-47.0) Mean Corpuscular Volume 84 fL (79-100) Mean Corpuscular Hemoglobin 28 pg (25-35) Mean Corpuscular Hemoglobin Concent 33 g/dL (31-37) Red Cell Distribution Width 16.9 % (11.5-14.5) Platelet Count 143 x10^3/uL (140-400) Neutrophils (%) (Auto) 45 % (31-73) Lymphocytes (%) (Auto) 46 % (24-48) Monocytes (%) (Auto) 7 % (0-9) Eosinophils (%) (Auto) 1 % (0-3) Basophils (%) (Auto) 0 % (0-3) Neutrophils # (Auto) 2.0 x10^3/uL (1.8-7.7) Lymphocytes # (Auto) 2.0 x10^3/uL (1.0-4.8) Monocytes # (Auto) 0.3 x10^3/uL (0.0-1.1) Eosinophils # (Auto) 0.1 x10^3/uL (0.0-0.7) Basophils # (Auto) 0.0 x10^3/uL (0.0-0.2) Sodium Level 140 mmol/L (136-145) Potassium Level 3.5 mmol/L (3.5-5.1) Chloride Level 105 mmol/L (98-107) Carbon Dioxide Level 26 mmol/L (21-32) Anion Gap 9 (6-14) Blood Urea Nitrogen 8 mg/dL (7-20) Creatinine 0.7 mg/dL (0.6-1.0) Estimated GFR (Cockcroft-Gault) 87.9 Glucose Level 109 mg/dL (70-99) Calcium Level 8.0 mg/dL (8.5-10.1) Phosphorus Level 3.8 mg/dL (2.6-4.7) Magnesium Level 2.0 mg/dL (1.8-2.4) Troponin I Quantitative < 0.017 ng/mL (0.000-0.055) Test 05/09/21 19:54 Glucose (Fingerstick) 135 mg/dL (70-99) Assessment and Plan Assessmemt and Plan Problems Medical Problems: (1) History of CVA (cerebrovascular accident) Status: Acute (2) Nausea & vomiting Status: Acute (3) Non-compliance Status: Acute (4) Uncontrolled hypertension Status: Acute (5) Vertigo Status: Acute Acute toxic and metabolic encephalopathy Mild Hypokalemia Peripheral vertigo Subacute to chronic thalamic infarct Inability to ambulate Debilitation Methamphetamine abuse Transaminitis Admit to hospitalist service for further management Ativan as needed for agitative episodes No IV electrolytes replacement as needed Neurology consult Orthostatic vital signs PT OT Lovenox for DVT prophylaxis Cardiac diet CODE STATUS full Discussed with RN and SW Disposition inpatient management as above, patient is homeless DPOA: Undesignated Comment Review of Relevant I have reviewed the following items mary (where applicable) has been applied. Medications: Current Medications Medications (Trade) Dose Ordered Sig/Curtis Route PRN Reason Start Time Stop Time Status Last Admin Dose Admin Enoxaparin Sodium (Lovenox 40mg Syringe) 40 mg Q24H SQ 05/09/21 09:00 05/09/21 09:13 Aspirin (Ecotrin) 81 mg [id number] PO 05/09/21 08:45 05/09/21 09:12 Amlodipine Besylate (Norvasc) 5 mg DAILY PO 05/09/21 15:00 05/09/21 15:03 Metformin HCl (Glucophage) 850 mg BIDWMEALS PO 05/09/21 17:00 05/09/21 17:27 Justifications for Admission Other Justification Vertigo and Acute toxic encephalopathy CR GARCIA MD May 09, 2021 20:24
[2021-05-09] MEDS: ZOLPIDEM 5 MG TABLET. PO PRN (21:55)
[2021-05-09] MEDS: LORazepam 0.5 MG TABLET PO PRN (21:55)
[2021-05-09] MEDS: METOPROLOL TART IMMED RELEASE 25 MG TABLET. PO SCH (21:56)
[2021-05-09 23:48] VITALS: BP 184/88
[2021-05-10] MEDS: IV NORMAL SALINE 1000ML BAG 1,000 ML IV SCH (00:30)
[2021-05-10 04:00] VITALS: BP 159/93
[2021-05-10 07:00] VITALS: BP 168/82
[2021-05-10 07:37] LABS: BASO % 0 % (0-3); EOS # 0.1 x10^3/uL (0.0-0.7); EOS % 2 % (0-3); HEMATOCRIT 40.2 % (36.0-47.0); HEMOGLOBIN 13.5 g/dL (12.0-15.5); LYMPH % 44 % (24-48); MEAN CORPUSCULAR HEMOGLOBIN 28 pg (25-35); MEAN CORPUSCULAR HGB CONC 34 g/dL (31-37); MEAN CORPUSCULAR VOLUME 84 fL (79-100); MONO # 0.4 x10^3/uL (0.0-1.1); MONO % 8 % (0-9); NEUT # 2.1 x10^3/uL (1.8-7.7); NEUT % 45 % (31-73); PLATELET COUNT 158 x10^3/uL (140-400); RED CELL DISTRIBUTION WIDTH 16.5 % (11.5-14.5); WHITE BLOOD COUNT 4.6 x10^3/uL (4.0-11.0)
[2021-05-10 09:03] LABS: CHOLESTEROL/HDL RATIO 6.3
[2021-05-10 09:14] LABS: CALCIUM 8.2 mg/dL (8.5-10.1); CREATININE 0.8 mg/dL (0.6-1.0); GFR 75.3; MAGNESIUM 1.9 mg/dL (1.8-2.4); POTASSIUM 3.5 mmol/L (3.5-5.1)
[2021-05-10] MEDS: metFORMIN 850 MG TABLET PO SCH ×3 (09:17→18:02)
[2021-05-10] MEDS: ASPIRIN ENTERIC COATED 81 MG TABLET.DR. PO SCH (09:17)
[2021-05-10] MEDS: LISINOPRIL 5 MG TABLET. PO SCH (09:20)
[2021-05-10] MEDS: METOPROLOL TART IMMED RELEASE 25 MG TABLET. PO SCH ×2 (09:21→21:17)
[2021-05-10] MEDS: ENOXAPARIN 40 MG/0.4 ML SYRINGE. SQ SCH (09:22)
--- NOTE | 2021-05-10 10:12 | PDOC ---
[facility] PROGRESS NOTE Date of Service DOS: DATE: 05/10/21 TIME: 10:10 Chief Complaint Chief Complaint Acute toxic and metabolic encephalopathy Mild Hypokalemia Peripheral vertigo Subacute to chronic thalamic infarct Inability to ambulate Debilitation Methamphetamine abuse Transaminitis Admit to hospitalist service for further management Ativan as needed for agitative episodes No IV electrolytes replacement as needed Neurology consult Orthostatic vital signs PT OT Lovenox for DVT prophylaxis Cardiac diet CODE STATUS full Discussed with RN and SW Disposition inpatient management as above, patient is homeless DPOA: Undesignated History of Present Illness History of Present Illness Hx obtained from discussion with the ED physician and chart review: 51 year old female who [place]. She describes vertigo symptoms. She reports that she has e xperienced the same symptoms previously. She reports that she was feeling fine and then she had abrupt onset of dizziness while sitting playing slot machines. She denies fall or head injury or loss of consciousness. She denies numbness tingling or focal motor weakness. She denies chest pain or dyspnea. She denies abdominal pain. She reports mild nausea, without vomiting. She is an extremely poor historian and does not seem to be completely willing to participate in her care or provide more detailed history. She admits to using methamphetamine yesterday. She has a history of recently diagnosed type 2 diabetes as well as hypertension. She admits that she has not taken any of her prescribed medications "in a while." 05/09 Patient evaluated and examined at bedside. Reports ongoing dizziness but really would not say much else. Home meds resumed today. PT OT. Evaluated by ne urology today as well recommending MRI brain. Plan of care discussed with bedside RN 05/10 Patient evaluated examined at bedside. Does have some ongoing dizziness which she says. PT OT essentially cleared patient for home discharge with outpatient follow-up. However patient still needs MRI. Will be able to plan further once MRI completed Vitals/I&O Vitals/I&O: Vital Signs Date Time Temp Pulse Resp B/P (MAP) Pulse Ox O2 Delivery O2 Flow Rate FiO2 05/10/21 09:21 69 168/62 05/10/21 07:00 97.8 16 97 Room Air 97.8 I & O 05/09/21 05/09/21 05/10/21 14:59 22:59 06:59 Intake Total 1240 ml Balance 1240 ml Physical Exam Physical Exam: Neurologic, grossly normal. Cranial nerves grossly intact General: Alert, Oriented X3, Cooperative Heart: Regular rate, Normal S1, Normal S2 Lungs: Clear Abdomen: Normal bowel sounds, Soft, No tenderness Extremities: No edema, Normal pulses Skin: No significant lesion Labs Labs: Laboratory Tests Test 05/09/21 11:55 05/09/21 17:00 05/09/21 19:54 05/10/21 06:50 Glucose (Fingerstick) 165 mg/dL (70-99) 136 mg/dL (70-99) 135 mg/dL (70-99) White Blood Count 4.6 x10^3/uL (4.0-11.0) Red Blood Count 4.80 x10^6/uL (3.50-5.40) Hemoglobin 13.5 g/dL (12.0-15.5) Hematocrit 40.2 % (36.0-47.0) Mean Corpuscular Volume 84 fL (79-100) Mean Corpuscular Hemoglobin 28 pg (25-35) Mean Corpuscular Hemoglobin Concent 34 g/dL (31-37) Red Cell Distribution Width 16.5 % (11.5-14.5) Platelet Count 158 x10^3/uL (140-400) Neutrophils (%) (Auto) 45 % (31-73) Lymphocytes (%) (Auto) 44 % (24-48) Monocytes (%) (Auto) 8 % (0-9) Eosinophils (%) (Auto) 2 % (0-3) Basophils (%) (Auto) 0 % (0-3) Neutrophils # (Auto) 2.1 x10^3/uL (1.8-7.7) Lymphocytes # (Auto) 2.0 x10^3/uL (1.0-4.8) Monocytes # (Auto) 0.4 x10^3/uL (0.0-1.1) Eosinophils # (Auto) 0.1 x10^3/uL (0.0-0.7) Basophils # (Auto) 0.0 x10^3/uL (0.0-0.2) Sodium Level 139 mmol/L (136-145) Potassium Level 3.5 mmol/L (3.5-5.1) Chloride Level 104 mmol/L (98-107) Carbon Dioxide Level 25 mmol/L (21-32) Anion Gap 10 (6-14) Blood Urea Nitrogen 8 mg/dL (7-20) Creatinine 0.8 mg/dL (0.6-1.0) Estimated GFR (Cockcroft-Gault) 75.3 Glucose Level 154 mg/dL (70-99) Calcium Level 8.2 mg/dL (8.5-10.1) Magnesium Level 1.9 mg/dL (1.8-2.4) Triglycerides Level 117 mg/dL (0-150) Cholesterol Level 164 mg/dL (0-200) LDL Cholesterol, Calculated 115 mg/dL (0-100) VLDL Cholesterol, Calculated 23 mg/dL (0-40) Non-HDL Cholesterol Calculated 138 mg/dL (0-129) HDL Cholesterol 26 mg/dL (40-60) Cholesterol/HDL Ratio 6.3 Test 05/10/21 07:42 Glucose (Fingerstick) 154 mg/dL (70-99) Assessment and Plan Assessmemt and Plan Problems Medical Problems: (1) History of CVA (cerebrovascular accident) Status: Acute (2) Nausea & vomiting Status: Acute (3) Non-compliance Status: Acute (4) Uncontrolled hypertension Status: Acute (5) Vertigo Status: Acute Comment Review of Relevant I have reviewed the following items mary (where applicable) has been applied. Medications: Current Medications Medications (Trade) Dose Ordered Sig/Curtis Route PRN Reason Start Time Stop Time Status Last Admin Dose Admin Amlodipine Besylate (Norvasc) 5 mg DAILY PO 05/09/21 15:00 05/10/21 09:21 Lisinopril (Prinivil) 5 mg DAILY PO 05/10/21 09:00 05/10/21 09:20 Metformin HCl (Glucophage) 850 mg BIDWMEALS PO 05/09/21 17:00 05/10/21 09:17 Metoprolol Tartrate (Lopressor) 25 mg BID PO 05/09/21 21:00 05/10/21 09:21 Justifications for Admission Other Justification Vertigo and Acute toxic encephalopathy CR GARCIA MD May 10, 2021 10:11
[2021-05-10 11:00] VITALS: BP 128/66
--- NOTE | 2021-05-10 12:27 | RAD ---
MRI BRAIN WO Date: 05/10/2021 11:37 AM Indication: abnormal head CT, dizzy Comparison: CT 05/08/2020. Technique: Multiplanar multisequence MRI of the brain was performed without intravenous contrast usin g the standard protocol. Findings: No acute infarct. No acute or chronic hemorrhage. The ventricles are normal in size and configuration without hydrocephalus. Mild scattered FLAIR hyperintensities in the subcortical, pericallosal, and p eriventricular deep white matter. The scalp and calvarium are normal. The pituitary and sella are normal. No Chiari malformation. The v isualized upper cervical spine is normal. The visualized orbits and globes are normal. The visualized paranasal sinuses are clear. Right mastoi d fluid. Normal flow voids within the vertebral, basilar, and internal carotid arteries indicating patency. IMPRESSION: 1. No acute infarct, acute hemorrhage, mass, or hydrocephalus. 2. Mild scattered FLAIR hyperintensities in the subcortical and periventricular deep white matter, a nonspecific finding which can be seen with chronic small vessel ischemic disease, sequela of chronic migraines, demyelinating disease, drug toxicity, prior infection (Lyme disease), prior injury, or vas culitis. Electronically signed by: Delano Garcia MD (05/10/2021 12:25 PM) [facility]
[2021-05-10 15:00] VITALS: BP 144/83
[2021-05-10] MEDS: PROCHLORPERAZINE 10 MG/2 ML VIAL. IV PRN (18:02)
--- NOTE | 2021-05-10 18:20 | NUR ---
Nurse's note: The patient and significant other is asking for replacement of metformin due to liver issues; will pass in shift report.
[2021-05-10 23:00] VITALS: BP 116/49
[2021-05-11 03:00] VITALS: BP 176/88
[2021-05-11 07:00] VITALS: BP 179/99
[2021-05-11 07:44] LABS: BASO % 0 % (0-3); EOS # 0.1 x10^3/uL (0.0-0.7); EOS % 2 % (0-3); HEMATOCRIT 42.5 % (36.0-47.0); HEMOGLOBIN 14.2 g/dL (12.0-15.5); LYMPH # 1.8 x10^3/uL (1.0-4.8); LYMPH % 38 % (24-48); MEAN CORPUSCULAR HEMOGLOBIN 28 pg (25-35); MEAN CORPUSCULAR HGB CONC 33 g/dL (31-37); MEAN CORPUSCULAR VOLUME 84 fL (79-100); MONO # 0.4 x10^3/uL (0.0-1.1); MONO % 8 % (0-9); NEUT # 2.6 x10^3/uL (1.8-7.7); NEUT % 53 % (31-73); PLATELET COUNT 174 x10^3/uL (140-400); RED BLOOD COUNT 5.05 x10^6/uL (3.50-5.40); RED CELL DISTRIBUTION WIDTH 16.5 % (11.5-14.5); WHITE BLOOD COUNT 4.9 x10^3/uL (4.0-11.0)
[2021-05-11 08:25] LABS: CALCIUM 8.8 mg/dL (8.5-10.1); CREATININE 0.7 mg/dL (0.6-1.0); GFR 87.9; MAGNESIUM 1.8 mg/dL (1.8-2.4); POTASSIUM 3.5 mmol/L (3.5-5.1)
[2021-05-11 11:00] VITALS: BP 190/90
[2021-05-11] MEDS: metFORMIN 850 MG TABLET PO SCH ×2 (12:14→17:00)
[2021-05-11] MEDS: LISINOPRIL 5 MG TABLET. PO SCH (12:15)
[2021-05-11] MEDS: METOPROLOL TART IMMED RELEASE 25 MG TABLET. PO SCH ×2 (12:15→20:35)
[2021-05-11] MEDS: ASPIRIN ENTERIC COATED 81 MG TABLET.DR. PO SCH (12:15)
[2021-05-11] MEDS: ENOXAPARIN 40 MG/0.4 ML SYRINGE. SQ SCH (12:16)
--- NOTE | 2021-05-11 12:25 | PDOC ---
[employer] PROGRESS NOTE Date of Service DOS: DATE: 05/11/21 TIME: 12:24 Chief Complaint Chief Complaint Acute toxic and metabolic encephalopathy Mild Hypokalemia Peripheral vertigo Subacute to chronic thalamic infarct Inability to ambulate Debilitation Methamphetamine abuse Transaminitis Admit to hospitalist service for further management Ativan as needed for agitative episodes No IV electrolytes replacement as needed Neurology consult Orthostatic vital signs PT OT Lovenox for DVT prophylaxis Cardiac diet CODE STATUS full Discussed with RN and SW Disposition inpatient management as above, patient is homeless DPOA: Undesignated History of Present Illness History of Present Illness Hx obtained from discussion with the ED physician and chart review: 51 year old female who [place]. She describes vertigo symptoms. She reports that she has e xperienced the same symptoms previously. She reports that she was feeling fine and then she had abrupt onset of dizziness while sitting playing slot machines. She denies fall or head injury or loss of consciousness. She denies numbness tingling or focal motor weakness. She denies chest pain or dyspnea. She denies abdominal pain. She reports mild nausea, without vomiting. She is an extremely poor historian and does not seem to be completely willing to participate in her care or provide more detailed history. She admits to using methamphetamine yesterday. She has a history of recently diagnosed type 2 diabetes as well as hypertension. She admits that she has not taken any of her prescribed medications "in a while." 05/09 Patient evaluated and examined at bedside. Reports ongoing dizziness but really would not say much else. Home meds resumed today. PT OT. Evaluated by ne urology today as well recommending MRI brain. Plan of care discussed with bedside RN 05/10 Patient evaluated examined at bedside. Does have some ongoing dizziness which she says. PT OT essentially cleared patient for home discharge with outpatient follow-up. However patient still needs MRI. Will be able to plan further once MRI completed 05/11 Patient evaluated examined at bedside. MRI performed yesterday today pretty normal. Patient does endorse ongoing dizziness which I do think is related to her drug use however a methamphetamine should be out of her system by now. Will order echo to check for further work-up. She does maybe have mild fluid overload on exam. Vitals/I&O Vitals/I&O: Vital Signs Date Time Temp Pulse Resp B/P (MAP) Pulse Ox O2 Delivery O2 Flow Rate FiO2 05/11/21 12:15 66 179/99 05/11/21 11:00 98.7 16 94 Room Air 98.7 I & O 05/10/21 05/10/21 05/11/21 15:00 23:00 07:00 Intake Total 120 ml 30 ml Balance 120 ml 30 ml Physical Exam Physical Exam: Neurologic, grossly normal. Cranial nerves grossly intact General: Alert, Oriented X3, Cooperative Heart: Regular rate, Normal S1, Normal S2 Lungs: Clear Abdomen: Normal bowel sounds, Soft, No tenderness Extremities: No edema, Normal pulses Skin: No significant lesion Labs Labs: Laboratory Tests Test 05/10/21 17:03 05/10/21 19:35 05/11/21 06:40 05/11/21 07:55 Glucose (Fingerstick) 153 mg/dL (70-99) 197 mg/dL (70-99) 144 mg/dL (70-99) White Blood Count 4.9 x10^3/uL (4.0-11.0) Red Blood Count 5.05 x10^6/uL (3.50-5.40) Hemoglobin 14.2 g/dL (12.0-15.5) Hematocrit 42.5 % (36.0-47.0) Mean Corpuscular Volume 84 fL (79-100) Mean Corpuscular Hemoglobin 28 pg (25-35) Mean Corpuscular Hemoglobin Concent 33 g/dL (31-37) Red Cell Distribution Width 16.5 % (11.5-14.5) Platelet Count 174 x10^3/uL (140-400) Neutrophils (%) (Auto) 53 % (31-73) Lymphocytes (%) (Auto) 38 % (24-48) Monocytes (%) (Auto) 8 % (0-9) Eosinophils (%) (Auto) 2 % (0-3) Basophils (%) (Auto) 0 % (0-3) Neutrophils # (Auto) 2.6 x10^3/uL (1.8-7.7) Lymphocytes # (Auto) 1.8 x10^3/uL (1.0-4.8) Monocytes # (Auto) 0.4 x10^3/uL (0.0-1.1) Eosinophils # (Auto) 0.1 x10^3/uL (0.0-0.7) Basophils # (Auto) 0.0 x10^3/uL (0.0-0.2) Sodium Level 138 mmol/L (136-145) Potassium Level 3.5 mmol/L (3.5-5.1) Chloride Level 103 mmol/L (98-107) Carbon Dioxide Level 26 mmol/L (21-32) Anion Gap 9 (6-14) Blood Urea Nitrogen 10 mg/dL (7-20) Creatinine 0.7 mg/dL (0.6-1.0) Estimated GFR (Cockcroft-Gault) 87.9 Glucose Level 153 mg/dL (70-99) Calcium Level 8.8 mg/dL (8.5-10.1) Magnesium Level 1.8 mg/dL (1.8-2.4) Test 05/11/21 11:57 Glucose (Fingerstick) 138 mg/dL (70-99) Assessment and Plan Assessmemt and Plan Problems Medical Problems: (1) History of CVA (cerebrovascular accident) Status: Acute (2) Nausea & vomiting Status: Acute (3) Non-compliance Status: Acute (4) Uncontrolled hypertension Status: Acute (5) Vertigo Status: Acute Comment Review of Relevant I have reviewed the following items mary (where applicable) has been applied. Justifications for Admission Other Justification Vertigo and Acute toxic encephalopathy CR GARCIA MD May 11, 2021 12:25
[2021-05-11 15:00] VITALS: BP 150/88
[2021-05-11 19:00] VITALS: BP 117/80
[2021-05-11] MEDS ORDERED: MECLIZINE HCL 12.5 MG TABLET. PO ONE (19:00)
[2021-05-11] MEDS: ATORVASTATIN CALCIUM 20 MG TABLET PO SCH (20:33)
[2021-05-11 23:00] VITALS: BP 162/93
[2021-05-12] VITALS (7 sets, daily range): BP systolic 152–207; BP diastolic 5–99
[2021-05-12] MEDS: metFORMIN 850 MG TABLET PO SCH ×2 (08:00→17:00)
--- NOTE | 2021-05-12 08:42 | PDOC ---
PROGRESS NOTES Date of Service DATE: 05/12/21 TIME: 08:37 Assessment Problems Medical Problems: (1) History of CVA (cerebrovascular accident) Status: Acute (2) Nausea & vomiting Status: Acute (3) Non-compliance Status: Acute (4) Uncontrolled hypertension Status: Acute (5) Vertigo Status: Acute Left vestibular neuronitis, also consider positional vertigo, no longer has nystagmus Incidental right parasagittal frontal lobe lacunar infarct, no clinical correlation. MRI shows white matter changes, no acute infarct Hypertensive encephalopathy Substance abuse, hypertension, diabetes, poor social situation, homeless Fairly favorable lipid profile Plan Aspirin Statin started Meclizine was discontinued last night Rehabilitation modalities Regulate blood pressure Home when safe. Subjective Dizziness is a little better Objective Vital Signs Date Time Temp Pulse Resp B/P (MAP) Pulse Ox O2 Delivery O2 Flow Rate FiO2 05/12/21 03:00 97.9 65 20 168/91 (116) 92 Room Air 97.9 Intake and Output 05/12/21 07:00 Intake Total 480 ml Balance 480 ml Intake Oral 480 ml PHYSICAL EXAM Alert. Oriented to time, place and person. PERRL. EOMI. no nystagmus elicited on Minesh-Hallpike and head impulse testing CN: no focal findings. Muscle tone: normal. Muscle strength: 5/5 DTR: 2+ Plantar reflex: Flexor Gait: not examined in bed. Sensory exam: no abnormal findings. No cerebellar signs elicited. Review of Relevant I have reviewed the following items mary (where applicable) has been applied. Labs Laboratory Tests Test 05/10/21 17:03 05/10/21 19:35 05/11/21 06:40 05/11/21 07:55 Glucose (Fingerstick) 153 mg/dL (70-99) 197 mg/dL (70-99) 144 mg/dL (70-99) White Blood Count 4.9 x10^3/uL (4.0-11.0) Red Blood Count 5.05 x10^6/uL (3.50-5.40) Hemoglobin 14.2 g/dL (12.0-15.5) Hematocrit 42.5 % (36.0-47.0) Mean Corpuscular Volume 84 fL (79-100) Mean Corpuscular Hemoglobin 28 pg (25-35) Mean Corpuscular Hemoglobin Concent 33 g/dL (31-37) Red Cell Distribution Width 16.5 % (11.5-14.5) Platelet Count 174 x10^3/uL (140-400) Neutrophils (%) (Auto) 53 % (31-73) Lymphocytes (%) (Auto) 38 % (24-48) Monocytes (%) (Auto) 8 % (0-9) Eosinophils (%) (Auto) 2 % (0-3) Basophils (%) (Auto) 0 % (0-3) Neutrophils # (Auto) 2.6 x10^3/uL (1.8-7.7) Lymphocytes # (Auto) 1.8 x10^3/uL (1.0-4.8) Monocytes # (Auto) 0.4 x10^3/uL (0.0-1.1) Eosinophils # (Auto) 0.1 x10^3/uL (0.0-0.7) Basophils # (Auto) 0.0 x10^3/uL (0.0-0.2) Sodium Level 138 mmol/L (136-145) Potassium Level 3.5 mmol/L (3.5-5.1) Chloride Level 103 mmol/L (98-107) Carbon Dioxide Level 26 mmol/L (21-32) Anion Gap 9 (6-14) Blood Urea Nitrogen 10 mg/dL (7-20) Creatinine 0.7 mg/dL (0.6-1.0) Estimated GFR (Cockcroft-Gault) 87.9 Glucose Level 153 mg/dL (70-99) Calcium Level 8.8 mg/dL (8.5-10.1) Magnesium Level 1.8 mg/dL (1.8-2.4) Test 05/11/21 11:57 05/11/21 17:20 05/11/21 19:42 05/12/21 07:54 Glucose (Fingerstick) 138 mg/dL (70-99) 123 mg/dL (70-99) 186 mg/dL (70-99) 157 mg/dL (70-99) Laboratory Tests Test 05/11/21 11:57 05/11/21 17:20 05/11/21 19:42 05/12/21 07:54 Glucose (Fingerstick) 138 mg/dL (70-99) 123 mg/dL (70-99) 186 mg/dL (70-99) 157 mg/dL (70-99) Medications Current Medications Sodium Chloride 1,000 ml @ 1,000 mls/hr 1X ONCE IV Last administered on 05/08/21at 12:55; Start 05/08/21 at 12:45; Stop 05/08/21 at 13:44; Status DC Ondansetron HCl (Zofran) 4 mg 1X ONCE IVP Last administered on 05/08/21at 16:11; Start 05/08/21 at 16:00; Stop 05/08/21 at 16:01; Status DC Ketorolac Tromethamine (Toradol 15mg Vial) 15 mg 1X ONCE IVP Last administered on 05/08/21at 16:52; Start 05/08/21 at 16:15; Stop 05/08/21 at 16:20; Status DC Diphenhydramine HCl (Benadryl) 25 mg 1X ONCE IVP Last administered on 04/19 08/08at 16:52; Start 05/08/21 at 16:15; Stop 05/08/21 at 16:20; Status DC Labetalol HCl (Normodyne Iv Push) 10 mg 1X ONCE IVP Last administered on 05/08/21at 16:53; Start 05/08/21 at 16:15; Stop 05/08/21 at 16:20; Status DC Ondansetron HCl (Zofran) 4 mg PRN Q8HRS PRN IVP NAUSEA/VOMITING; Start 05/08/21 at 16:30; Stop 05/09/21 at 16:29; Status DC Sodium Chloride 1,000 ml @ 125 mls/hr 1X ONCE IV Last administered on 05/08/21at 16:55; Start 05/08/21 at 16:30; Stop 05/09/21 at 00:29; Status DC Aspirin (Ecotrin) 325 mg 1X ONCE PO Last administered on 05/08/21at 20:27; Start 05/08/21 at 17:00; Stop 05/08/21 at 17:01; Status DC Labetalol HCl (Normodyne Iv Push) 10 mg 1X ONCE IVP ; Start 05/08/21 at 17:30; Stop 05/08/21 at 17:31; Status DC Sennosides (Senna) 17.2 mg PRN BID PRN PO CONSTIPATION; Start 05/08/21 at 18:30 Docusate Sodium (Colace) 100 mg PRN DAILY PRN PO HARD STOOLS; Start 05/08/21 at 18:30 Ondansetron HCl (Zofran) 4 mg PRN Q6HRS PRN IVP NAUSEA/VOMITING, 1ST CHOICE Last administered on 05/10/21at 11:21; Start 05/08/21 at 18:30 Dextrose (Dextrose 50%-Water Syringe) 12.5 gm PRN Q15MIN PRN IV SEE COMMENTS; Start 05/08/21 at 18:30 Sodium Chloride 1,000 ml @ 100 mls/hr Q10H IV Last administered on 05/10/21at 00:30; Start 05/08/21 at 18:30; Stop 05/10/21 at 16:48; Status DC Acetaminophen (Tylenol) 650 mg PRN Q4HRS PRN PO TEMP OVER 100.4F OR MILD PAIN; Start 05/08/21 at 18:30 Lorazepam (Ativan) 0.5 mg PRN Q6HRS PRN PO ANXIETY / AGITATION Last administered on 05/09/21at 21:55; Start 05/08/21 at 18:30 Lorazepam (Ativan Inj) 0.25 mg PRN Q4HRS PRN IV ANXIETY / AGITATION; Start 05/08/21 at 18:30 Enoxaparin Sodium (Lovenox 40mg Syringe) 40 mg Q24H SQ Last administered on 05/11/21at 12:16; Start 05/09/21 at 09:00 Prochlorperazine Edisylate (Compazine) 10 mg PRN Q6HRS PRN IV NAUSEA/VOMITING, 2ND CHOICE Last administered on 05/10/21at 18:02; Start 05/08/21 at 18:30 Zolpidem Tartrate (Ambien) 2.5 mg PRN QHS PRN PO INSOMNIA Last administered on 05/09/21at 21:55; Start 05/08/21 at 18:30 Hydralazine HCl (Apresoline Inj) 10 mg PRN Q4HRS PRN IVP ELEV BP,SEE COMMENT,2ND CHOICE; Start 05/08/21 at 18:30 Labetalol HCl (Normodyne Iv Push) 20 mg PRN Q2HRS PRN IVP HYPERTENSION, 1ST CHOICE; Start 05/08/21 at 18:30 Aspirin (Ecotrin) 81 mg DAILYWBKFT PO Last administered on 05/11/21at 12:15; Start 05/09/21 at 08:45 Amlodipine Besylate (Norvasc) 5 mg DAILY PO Last administered on 05/11/21at 12:14; Start 05/09/21 at 15:00 Lisinopril (Prinivil) 5 mg DAILY PO Last administered on 05/11/21at 12:15; Start 05/10/21 at 09:00 Metformin HCl (Glucophage) 850 mg BIDWMEALS PO Last administered on 05/11/21at 12:14; Start 05/09/21 at 17:00 Metoprolol Tartrate (Lopressor) 25 mg BID PO Last administered on 05/11/21at 20:35; Start 05/09/21 at 21:00 Atorvastatin Calcium (Lipitor) 20 mg QHS PO Last administered on 05/11/21at 20:33; Start 05/11/21 at 21:00 Meclizine HCl (Antivert) 25 mg 1X ONCE PO Last administered on 05/11/21at 20:33; Start 05/11/21 at 19:00; Stop 05/11/21 at 19:01; Status DC Active Scripts Active Lisinopril 5 Mg Tablet 1 Tab PO DAILY Ijnldy-Sdkxlexf-Wwub 50-325-40 (Butalb/Acetaminophen/Caffeine) 1 Each Tablet 1 Tab PO PRN Q6HRS PRN Doxycycline Hyclate 100 Mg Tablet 1 Tab PO BID Glucophage (Metformin Hcl) 850 Mg Tablet 850 Mg PO BIDWMEALS Amlodipine Besylate 5 Mg Tablet 5 Mg PO DAILY Metoprolol Tartrate 25 Mg Tablet 25 Mg PO BID Reported No Known Medications Prior To Admisstion (Info) Each 1 Each UNK Vitals/I & O Vital Sign - Last 24 Hours 05/11/21 05/11/21 05/11/21 05/11/21 11:00 12:14 12:15 12:15 Temp 98.7 98.7 Pulse 72 66 66 66 Resp 16 B/P (MAP) 190/90 (123) 179/99 179/99 179/99 Pulse Ox 94 O2 Delivery Room Air 05/11/21 05/11/21 05/11/2124/21 15:00 19:00 20:15 20:35 Temp 98.7 98.0 98.7 98.0 Pulse 70 76 76 Resp 16 20 B/P (MAP) 150/88 (108) 117/80 (92) 117/80 Pulse Ox 94 96 O2 Delivery Room Air Room Air Room Air 05/11/21 05/12/21 23:00 03:00 Temp 97.7 97.9 97.7 97.9 Pulse 65 65 Resp 17 20 B/P (MAP) 162/93 (116) 168/91 (116) Pulse Ox 92 92 O2 Delivery Room Air Room Air Intake and Output0 05/11/21 05/11/21 05/12/21 15:00 23:00 07:00 Intake Total 300 ml 180 ml Balance 300 ml 180 ml Images MRI BRAIN WO Date: 05/10/2021 11:37 AM Indication: abnormal head CT, dizzy Comparison: CT 05/08/2020. Technique: Multiplanar multisequence MRI of the brain was performed without intravenous contrast using the standard protocol. Findings: No acute infarct. No acute or chronic hemorrhage. The ventricles are normal in size and configuration without hydrocephalus. Mild scattered FLAIR hyperintensities in the subcortical, pericallosal, and periventricular deep white matter. The scalp and calvarium are normal. The pituitary and sella are normal. No Chiari malformation. The visualized upper cervical spine is normal. The visualized orbits and globes are normal. The visualized paranasal sinuses are clear. Right mastoid fluid. Normal flow voids within the vertebral, basilar, and internal carotid arteries indicating patency. IMPRESSION: 1. No acute infarct, acute hemorrhage, mass, or hydrocephalus. 2. Mild scattered FLAIR hyperintensities in the subcortical and periventricular deep white matter, a nonspecific finding which can be seen with chronic small vessel ischemic disease, sequela of chronic migraines, demyelinating disease, drug toxicity, prior infection (Lyme disease), prior injury, or vasculitis. Justicifation of Admission Dx: Justifications for Admission: Justification of Admission Dx: No RIGO PARRA MD May 12, 2021 08:42
[2021-05-12] MEDS: ENOXAPARIN 40 MG/0.4 ML SYRINGE. SQ SCH (09:45)
[2021-05-12] MEDS: ASPIRIN ENTERIC COATED 81 MG TABLET.DR. PO SCH (09:45)
[2021-05-12] MEDS: LISINOPRIL 5 MG TABLET. PO SCH (09:45)
[2021-05-12] MEDS: METOPROLOL TART IMMED RELEASE 25 MG TABLET. PO SCH ×2 (09:45→20:51)
[2021-05-12] MEDS ORDERED: DEXTROSE 50% 25 GM / 50ML DISP.SYRIN. IV PRN (11:30)
--- NOTE | 2021-05-12 11:36 | PDOC ---
[facility] PROGRESS NOTE Date of Service DOS: DATE: 05/12/21 TIME: 11:31 Chief Complaint Chief Complaint Acute toxic and metabolic encephalopathy Mild Hypokalemia Dizziness - Peripheral vertigo. Left vestibular neuronitis, also consider positional vertigo, no longer has nystagmus Subacute to chronic thalamic infarct - Incidental right parasagittal frontal lobe lacunar infarct, no clinical correlation. Inability to ambulate Debilitation Methamphetamine abuse Transaminitis Hypertensive encephalopathy Substance abuse, hypertension, diabetes, poor social situation, homeless Admit to hospitalist service for further management Ativan as needed for agitative episodes No IV electrolytes replacement as needed Neurology consult Orthostatic vital signs PT OT Lovenox for DVT prophylaxis Cardiac diet CODE STATUS full Discussed with RN and SW Disposition inpatient management as above, patient is homeless DPOA: Undesignated History of Present Illness History of Present Illness 51 year old female who [place]. She describes vertigo symptoms. She reports that she has experienced the same symptoms previously. She reports that she was feeling fine and then she had abrupt onset of dizziness while sitting playing slot machines. She denies fall or head injury or loss of consciousness. She denies numbness tingling or focal motor weakness. She denies chest pain or dyspnea. She denies abdominal pain. She reports mild nausea, without vomiting. She is an extremely poor historian and does not seem to be completely willing to participate in her care or provide more detailed history. She admits to using methamphetamine yesterday. She has a history of recently diagnosed type 2 diabetes as well as hypertension. She admits that she has not taken any of her prescribed medications "in a while." 05/09: Reports ongoing dizziness but really would not say much else. Home meds resumed today. PT OT. Evaluated by neurology today as well recommending MRI brain. 05/10: Does have some ongoing dizziness which she says. PT OT essentially cleared patient for home discharge with outpatient follow-up. However patient still needs MRI. 05/11: Patient evaluated examined at bedside. MRI performed yesterday today pretty normal. Patient does endorse ongoing dizziness which I do think is related to her drug use however a methamphetamine should be out of her system by now. Will order echo to check for further work-up. She does maybe have mild fluid overload on exam. Systolic blood pressure 207 today. Dizziness minimally improved with repositioning exercises per PT. Getting echo currently. No CP or SOB. Will increase amlodipine, f/u echo results. Vitals/I&O Vitals/I&O: Vital Signs Date Time Temp Pulse Resp B/P (MAP) Pulse Ox O2 Delivery O2 Flow Rate FiO2 05/12/21 11:00 97.5 78 20 207/91 (129) 98 Room Air 97.5 I & O 05/11/21 05/11/21 05/12/21 15:00 23:00 07:00 Intake Total 300 ml 180 ml Balance 300 ml 180 ml Physical Exam Physical Exam: Neurologic, grossly normal. Cranial nerves grossly intact General: Alert, Oriented X3, Cooperative Heart: Regular rate, Normal S1, Normal S2 Lungs: Clear Abdomen: Normal bowel sounds, Soft, No tenderness Extremities: No edema, Normal pulses Skin: No significant lesion Labs Labs: Laboratory Tests Test 05/11/21 11:57 05/11/21 17:20 05/11/21 19:42 05/12/21 07:54 Glucose (Fingerstick) 138 mg/dL (70-99) 123 mg/dL (70-99) 186 mg/dL (70-99) 157 mg/dL (70-99) Assessment and Plan Assessmemt and Plan Problems Medical Problems: (1) History of CVA (cerebrovascular accident) Status: Acute (2) Nausea & vomiting Status: Acute (3) Non-compliance Status: Acute (4) Uncontrolled hypertension Status: Acute (5) Vertigo Status: Acute Comment Review of Relevant I have reviewed the following items mary (where applicable) has been applied. Medications: Current Medications Medications (Trade) Dose Ordered Sig/Curtis Route PRN Reason Start Time Stop Time Status Last Admin Dose Admin Atorvastatin Calcium (Lipitor) 20 mg QHS PO 05/11/21 21:00 05/11/21 20:33 Meclizine HCl (Antivert) 25 mg 1X ONCE PO 05/11/21 19:00 05/11/21 19:01 DC 05/11/21 20:33 Justifications for Admission Other Justification Vertigo and Acute toxic encephalopathy CR GARRETT MD May 12, 2021 11:36
[2021-05-12] MEDS ORDERED: ONDANSETRON ODT 4 MG TAB.RAPDIS. PO PRN (13:00)
[2021-05-12] MEDS: MECLIZINE HCL 12.5 MG TABLET. PO PRN ×2 (13:43→18:20)
[2021-05-12] MEDS: INSULIN LISPRO 300 UNITS/3 ML VIAL. SQ SCH ×2 (13:46→18:20)
--- NOTE | 2021-05-12 14:09 | CARD ---
MR#: [id number] Date of Study: 05/12/2021 Ordering Physician: CR GARCIA, Referring Physician: CR GARCIA, Tech: Brad Osorio [facility] APPROVED REPORT EXAM: Two-dimensional and M-mode echocardiogram with Doppler and color Doppler. Other Information Quality : FairHR: 60bpm Rhythm : NSRTechnically limited study due to body habitus. INDICATION Dizziness and Vertigo RISK FACTORS Hypertension Obesity Diabetes Smoking 2D DIMENSIONS Left Atrium(2D)3.9 (1.6-4.0cm)IVSd1.6 (0.7-1.1cm) Aortic Root(2D)3.1 (2.0-3.7cm)LVDd3.5 (3.9-5.9cm) LVOT Diameter1.9 (1.8-2.4cm)PWd1.5 (0.7-1.1cm) LVDs2.2 (2.5-4.0cm)FS (%) 37.8 % SV35.4 mlLVEF(%)69.0 (>50%) Aortic Valve AoV Peak Peng.103.3cm/sAoV VTI19.3cm AO Peak GR.4.3mmHgLVOT Peak Peng.76.0cm/s LVOT VTI 19.27cmAO Mean GR.2mmHg CLEO (VMAX)1.85vy5ZGQ (VTI)2.92cm2 Mitral Valve MV E Eonargel27.3cm/sMV DECEL [id number] MV A Psvwyqfw24.2cm/sMV AYL23aq E/A Ratio0.7MVA (PHT)3.14cm2 TDI E/Lateral E'15.2E/Medial E'14.9 Pulmonary Valve PV Peak Qcsagqul25.0cm/sPV Peak Grad.3mmHg Tricuspid Valve TR P. Wkzzdnqb229ul/sTR Peak Gr.14mmHg Pulmonary Vein S1 Norbfmim52.2cm/sD2 Sjjiyvyd38.1cm/s LEFT VENTRICLE The left ventricle is normal size. There is moderate concentric left ventricular hypertrophy. The lef t ventricular systolic function is normal and the ejection fraction is within normal range. EF 55% Th ere is normal LV segmental wall motion. Tissue Doppler imaging reveals mild left ventricular diastoli c dysfunction. No left ventricle thrombus noted on this study. There is no ventricular septal defect visualized. There is no left ventricular aneurysm. There is no mass noted in the left ventricle. RIGHT VENTRICLE The right ventricle is normal size. There is normal right ventricular wall thickness. The right ventr icular systolic function is normal. ATRIA The left atrium is moderately dilated. The right atrium size is normal. The interatrial septum is int act with no evidence for an atrial septal defect or patent foramen ovale as noted on 2-D or Doppler i maging. AORTIC VALVE The aortic valve is not well visualized. Grossly appears trileaflet. Doppler and Color Flow revealed no significant aortic regurgitation. There is no significant aortic valvular stenosis. There is no ao rtic valvular vegetation. MITRAL VALVE Mitral annular calcification is mild. There is no evidence of mitral valve prolapse. There is no mitr al valve stenosis. Doppler and Color-flow revealed trace to mild mitral regurgitation. TRICUSPID VALVE The tricuspid valve is normal in structure and function. Doppler and Color Flow revealed trace to mil d tricuspid regurgitation. There is no tricuspid valve prolapse or vegetation. There is no tricuspid valve stenosis. PULMONIC VALVE The pulmonic valve is not well seen. Doppler and Color Flow revealed no pulmonic valvular regurgitati on. There is no pulmonic valvular stenosis. GREAT VESSELS The aortic root is normal in size. The ascending aorta is normal in size. The IVC is normal in size a nd collapses >50% with inspiration. PERICARDIAL EFFUSION There is no pleural effusion. There is no evidence of significant pericardial effusion. Critical Notification Critical Value: No <Conclusion> The left ventricular systolic function is normal and the ejection fraction is within normal range. EF 55% There is normal LV segmental wall motion. Technically difficult study. Signed by : Tarun Marrufo, Electronically Approved : 05/12/2021 14:09:28
[2021-05-12] MEDS: ZOLPIDEM 5 MG TABLET. PO PRN (20:51)
[2021-05-12] MEDS: LORazepam 0.5 MG TABLET PO PRN (20:51)
[2021-05-12] MEDS: ATORVASTATIN CALCIUM 20 MG TABLET PO SCH (20:51)
[2021-05-13 03:30] VITALS: BP 142/72
[2021-05-13 07:00] VITALS: BP 109/76
[2021-05-13] MEDS ORDERED: METO25TA4 PO (07:20)
[2021-05-13] MEDS ORDERED: ATOR20TA58 PO (07:20)
[2021-05-13] MEDS ORDERED: AMLO-187 PO (07:20)
[2021-05-13] MEDS ORDERED: MECL12.582 PO (07:20)
[2021-05-13] MEDS ORDERED: LISI5TAB15 PO (07:20)
--- NOTE | 2021-05-13 07:23 | PDOC ---
[facility] [facility] PROGRESS NOTE Date of Service DOS: DATE: 05/13/21 TIME: 07:17 Chief Complaint Chief Complaint Acute toxic and metabolic encephalopathy Mild Hypokalemia Dizziness - Peripheral vertigo. Left vestibular neuronitis, also consider positional vertigo, no longer has nystagmus Subacute to chronic thalamic infarct - Incidental right parasagittal frontal lobe lacunar infarct, no clinical correlation. Inability to ambulate Debilitation Methamphetamine abuse Transaminitis Hypertensive encephalopathy Substance abuse, hypertension, diabetes, poor social situation, homeless Admit to hospitalist service for further management Ativan as needed for agitative episodes No IV electrolytes replacement as needed Neurology consult Orthostatic vital signs PT OT Lovenox for DVT prophylaxis Cardiac diet CODE STATUS full Discussed with RN and SW Disposition inpatient management as above, patient is homeless DPOA: Undesignated History of Present Illness History of Present Illness 51 year old female who [place]. She describes vertigo symptoms. She reports that she has experienced the same symptoms previously. She reports that she was feeling fine and then she had abrupt onset of dizziness while sitting playing slot machines. She denies fall or head injury or loss of consciousness. She denies numbness tingling or focal motor weakness. She denies chest pain or dyspnea. She denies abdominal pain. She reports mild nausea, without vomiting. She is an extremely poor historian and does not seem to be completely willing to participate in her care or provide more detailed history. She admits to using methamphetamine yesterday. She has a history of recently diagnosed type 2 diabetes as well as hypertension. She admits that she has not taken any of her prescribed medications "in a while." 05/09: Reports ongoing dizziness but really would not say much else. Home meds resumed today. PT OT. Evaluated by neurology today as well recommending MRI brain. 05/10: Does have some ongoing dizziness which she says. PT OT essentially cleared patient for home discharge with outpatient follow-up. However patient still needs MRI. 05/11: Patient evaluated examined at bedside. MRI performed yesterday today pretty normal. Patient does endorse ongoing dizziness which I do think is related to her drug use however a methamphetamine should be out of her system by now. Will order echo to check for further work-up. She does maybe have mild fluid overload on exam. 05/12: Systolic blood pressure 207 today. Dizziness minimally improved with repositioning exercises per PT. Getting echo currently. No CP or SOB. Increased amlodipine echo results with no acute abnormalities. BP a little low this morning. Dizziness improved but still feels like she is listing a little to the left when getting up to go to the bathroom. She found the walker extremely helpful. She is tearful about her social situation as her son who is 30 years old and has schizophrenia lives with her in a shed behind a person's home notes that she had is infested with rats and does not have water or power availability. She typically goes to the [employer] during the day. She notes she does have a daughter who has a vehicle in stable housing but they have not been in good touch. Disc ussed with neurology she is improved and stable for discharge. Vitals/I&O Vitals/I&O: Vital Signs Date Time Temp Pulse Resp B/P (MAP) Pulse Ox O2 Delivery O2 Flow Rate FiO2 05/13/21 03:30 98.2 64 16 142/72 (95) 95 Room Air 98.2 I & O 05/12/21 05/12/21 05/13/21 15:00 23:00 07:00 Intake Total 280 ml 100 ml 130 ml Output Total 1 ml Balance 280 ml 100 ml 129 ml Physical Exam Physical Exam: Neurologic, grossly normal. Cranial nerves grossly intact General: Alert, Oriented X3, Cooperative Heart: Regular rate, Normal S1, Normal S2 Lungs: Clear Abdomen: Normal bowel sounds, Soft, No tenderness Extremities: No edema, Normal pulses Skin: No significant lesion Labs Labs: Laboratory Tests Test 05/12/21 07:54 05/12/21 11:51 05/12/21 16:24 05/12/21 20:16 Glucose (Fingerstick) 157 mg/dL (70-99) 176 mg/dL (70-99) 168 mg/dL (70-99) 163 mg/dL (70-99) Assessment and Plan Assessmemt and Plan Problems Medical Problems: (1) History of CVA (cerebrovascular accident) Status: Acute (2) Nausea & vomiting Status: Acute (3) Non-compliance Status: Acute (4) Uncontrolled hypertension Status: Acute (5) Vertigo Status: Acute Comment Review of Relevant I have reviewed the following items mary (where applicable) has been applied. Medications: Current Medications Medications (Trade) Dose Ordered Sig/Curtis Route PRN Reason Start Time Stop Time Status Last Admin Dose Admin Meclizine HCl (Antivert) 12.5 mg PRN Q6HRS PRN PO DIZZINESS 05/12/21 11:30 05/12/21 18:20 Insulin Human Lispro (HumaLOG) 0-9 UNITS TIDWMEALS SQ 05/12/21 12:00 05/12/21 18:20 Justifications for Admission Other Justification Vertigo and Acute toxic encephalopathy CR GARRETT MD May 13, 2021 07:23
--- NOTE | 2021-05-13 08:20 | PDOC ---
PROGRESS NOTES Date of Service DATE: 05/13/21 TIME: 08:17 Assessment Problems Medical Problems: (1) History of CVA (cerebrovascular accident) Status: Acute (2) Nausea & vomiting Status: Acute (3) Non-compliance Status: Acute (4) Uncontrolled hypertension Status: Acute (5) Vertigo Status: Acute Left vestibular neuronitis, also consider positional vertigo, no longer has nystagmus Incidental right parasagittal frontal lobe lacunar infarct, no clinical correlation. MRI shows white matter changes, no acute infarct Hypertensive encephalopathy Substance abuse, hypertension, diabetes, poor social situation, homeless Fairly favorable lipid profile Plan Aspirin Statin started Meclizine PRN, not to be used more than a week or 2 at a time Rehabilitation modalities Regulate blood pressure Okay for discharge Neurology signs off Subjective Denies dizziness in bed Objective Vital Signs Date Time Temp Pulse Resp B/P (MAP) Pulse Ox O2 Delivery O2 Flow Rate FiO2 05/13/21 03:30 98.2 64 16 142/72 (95) 95 Room Air 98.2 Intake and Output 05/13/21 07:00 Intake Total 510 ml Output Total 1 ml Balance 509 ml Intake Oral 510 ml Output Urine Total 1 ml PHYSICAL EXAM Alert. Oriented to time, place and person. PERRL. EOMI. no nystagmus elicited CN: no focal findings. Muscle tone: normal. Muscle strength: 5/5 DTR: 2+ Plantar reflex: Flexor Gait: not examined in bed. Sensory exam: no abnormal findings. No cerebellar signs elicited. Review of Relevant I have reviewed the following items mary (where applicable) has been applied. Labs Laboratory Tests Test 05/11/21 11:57 05/11/21 17:20 05/11/21 19:42 05/12/21 07:54 Glucose (Fingerstick) 138 mg/dL (70-99) 123 mg/dL (70-99) 186 mg/dL (70-99) 157 mg/dL (70-99) Test 05/12/21 11:51 05/12/21 16:24 05/12/21 20:16 05/13/21 07:55 Glucose (Fingerstick) 176 mg/dL (70-99) 168 mg/dL (70-99) 163 mg/dL (70-99) 176 mg/dL (70-99) Laboratory Tests Test 05/12/21 11:51 05/12/21 16:24 05/12/21 20:16 05/13/21 07:55 Glucose (Fingerstick) 176 mg/dL (70-99) 168 mg/dL (70-99) 163 mg/dL (70-99) 176 mg/dL (70-99) Medications Current Medications Sodium Chloride 1,000 ml @ 1,000 mls/hr 1X ONCE IV Last administered on 05/08/21at 12:55; Start 05/08/21 at 12:45; Stop 05/08/21 at 13:44; Status DC Ondansetron HCl (Zofran) 4 mg 1X ONCE IVP Last administered on 05/08/21at 16:11; Start 05/08/21 at 16:00; Stop 05/08/21 at 16:01; Status DC Ketorolac Tromethamine (Toradol 15mg Vial) 15 mg 1X ONCE IVP Last administered on 05/08/21at 16:52; Start 05/08/21 at 16:15; Stop 05/08/21 at 16:20; Status DC Diphenhydramine HCl (Benadryl) 25 mg 1X ONCE IVP Last administered on 05/08/21at 16:52; Start 05/08/21 at 16:15; Stop 05/08/21 at 16:20; Status DC Labetalol HCl (Normodyne Iv Push) 10 mg 1X ONCE IVP Last administered on 05/08/21at 16:53; Start 05/08/21 at 16:15; Stop 05/08/21 at 16:20; Status DC Ondansetron HCl (Zofran) 4 mg PRN Q8HRS PRN IVP NAUSEA/VOMITING; Start 05/08/21 at 16:30; Stop 05/09/21 at 16:29; Status DC Sodium Chloride 1,000 ml @ 125 mls/hr 1X ONCE IV Last administered on 05/08/21at 16:55; Start 05/08/21 at 16:30; Stop 05/09/21 at 00:29; Status DC Aspirin (Ecotrin) 325 mg 1X ONCE PO Last administered on 05/08/21at 20:27; Start 05/08/21 at 17:00; Stop 05/08/21 at 17:01; Status DC Labetalol HCl (Normodyne Iv Push) 10 mg 1X ONCE IVP ; Start 05/08/21 at 17:30; Stop 05/08/21 at 17:31; Status DC Sennosides (Senna) 17.2 mg PRN BID PRN PO CONSTIPATION; Start 05/08/21 at 18:30 Docusate Sodium (Colace) 100 mg PRN DAILY PRN PO HARD STOOLS; Start 05/08/21 at 18:30 Ondansetron HCl (Zofran) 4 mg PRN Q6HRS PRN IVP NAUSEA/VOMITING, 1ST CHOICE Last administered on 05/10/21at 11:21; Start 05/08/21 at 18:30 Dextrose (Dextrose 50%-Water Syringe) 12.5 gm PRN Q15MIN PRN IV SEE COMMENTS; Start 05/08/21 at 18:30; Stop 05/12/21 at 11:34; Status DC Sodium Chloride 1,000 ml @ 100 mls/hr Q10H IV Last administered on 05/10/21at 00:30; Start 05/08/21 at 18:30; Stop 05/10/21 at 16:48; Status DC Acetaminophen (Tylenol) 650 mg PRN Q4HRS PRN PO TEMP OVER 100.4F OR MILD PAIN; Start 05/08/21 at 18:30 Lorazepam (Ativan) 0.5 mg PRN Q6HRS PRN PO ANXIETY / AGITATION Last administered on 05/12/21at 20:51; Start 05/08/21 at 18:30 Lorazepam (Ativan Inj) 0.25 mg PRN Q4HRS PRN IV ANXIETY / AGITATION; Start 05/08/21 at 18:30 Enoxaparin Sodium (Lovenox 40mg Syringe) 40 mg Q24H SQ Last administered on 05/12/21at 09:45; Start 05/09/21 at 09:00 Prochlorperazine Edisylate (Compazine) 10 mg PRN Q6HRS PRN IV NAUSEA/VOMITING, 2ND CHOICE Last administered on 05/10/21at 18:02; Start 05/08/21 at 18:30 Zolpidem Tartrate (Ambien) 2.5 mg PRN QHS PRN PO INSOMNIA Last administered on 05/12/21at 20:51; Start 05/08/21 at 18:30 Hydralazine HCl (Apresoline Inj) 10 mg PRN Q4HRS PRN IVP ELEV BP,SEE COMMENT,2ND CHOICE; Start 05/08/21 at 18:30 Labetalol HCl (Normodyne Iv Push) 20 mg PRN Q2HRS PRN IVP HYPERTENSION, 1ST CHOICE; Start 05/08/21 at 18:30 Aspirin (Ecotrin) 81 mg DAILYWBKFT PO Last administered on 05/12/21at 09:45; Start 05/09/21 at 08:45 Amlodipine Besylate (Norvasc) 5 mg DAILY PO Last administered on 05/11/21at 12:14; Start 05/09/21 at 15:00; Stop 05/12/21 at 11:31; Status DC Lisinopril (Prinivil) 5 mg DAILY PO Last administered on 05/12/21at 09:45; Start 05/10/21 at 09:00 Metformin HCl (Glucophage) 850 mg BIDWMEALS PO Last administered on 05/11/21at 12:14; Start 05/09/21 at 17:00 Metoprolol Tartrate (Lopressor) 25 mg BID PO Last administered on 05/12/21at 20:51; Start 05/09/21 at 21:00 Atorvastatin Calcium (Lipitor) 20 mg QHS PO Last administered on 05/12/21at 20:51; Start 05/11/21 at 21:00 Meclizine HCl (Antivert) 25 mg 1X ONCE PO Last administered on 05/11/21at 20:33; Start 05/11/21 at 19:00; Stop 05/11/21 at 19:01; Status DC Meclizine HCl (Antivert) 12.5 mg PRN Q6HRS PRN PO DIZZINESS Last administered on 05/12/21at 18:20; Start 05/12/21 at 11:30 Amlodipine Besylate (Norvasc) 10 mg DAILY PO ; Start 05/13/21 at 09:00 Insulin Human Lispro (HumaLOG) 0-9 UNITS TIDWMEALS SQ Last administered on 05/12/21at 18:20; Start 05/12/21 at 12:00 Dextrose (Dextrose 50%-Water Syringe) 12.5 gm PRN Q15MIN PRN IV SEE COMMENTS; Start 05/12/21 at 11:30 Ondansetron HCl (Zofran Odt) 4 mg PRN Q4HRS PRN PO NAUSEA; Start 05/12/21 at 13:00 Linagliptin (Tradjenta) 5 mg DAILY PO ; Start 05/13/21 at 09:00 Active Scripts Active Amlodipine Besylate 10 Mg Tablet 10 Mg PO DAILY Meclizine Hcl 12.5 Mg Tablet 12.5 Mg PO PRN Q6HRS PRN 5 Days Atorvastatin Calcium 20 Mg Tablet 20 Mg PO QHS 30 Days Lisinopril 5 Mg Tablet 1 Tab PO DAILY 30 Days Metoprolol Tartrate 25 Mg Tablet 25 Mg PO BID 30 Days Glucophage (Metformin Hcl) 850 Mg Tablet 850 Mg PO BIDWMEALS Vitals/I & O Vital Sign - Last 24 Hours 05/12/21 05/12/21 05/12/21 05/12/21 09:45 09:45 11:00 11:58 Temp 97.5 97.5 Pulse 67 67 78 59 Resp 20 B/P (MAP) 190/95 190/95 207/91 (129) 169/85 (113) Pulse Ox 98 O2 Delivery Room Air 05/12/21 05/12/21 05/12/21 05/12/21 15:00 19:38 20:00 20:51 Temp 98.6 98.4 98.6 98.4 Pulse 70 75 75 Resp 20 16 B/P (MAP) 164/94 (117) 176/99 (124) 176/99 Pulse Ox 93 94 O2 Delivery Room Air Room Air Room Air 05/12/21 05/13/21 23:08 03:30 Temp 98.2 98.2 98.2 98.2 Pulse 78 64 Resp 16 16 B/P (MAP) 152/72 (98) 142/72 (95) Pulse Ox 95 95 O2 Delivery Room Air Room Air Intake and Output 05/12/21 05/12/21 05/13/21 15:00 23:00 07:00 Intake Total 280 ml 100 ml 130 ml Output Total 1 ml Balance 280 ml 100 ml 129 ml Justicifation of Admission Dx: Justifications for Admission: Justification of Admission Dx: No RIGO PARRA MD May 13, 2021 08:20
[2021-05-13] MEDS ORDERED: LINAGLIPTIN 5 MG TABLET PO SCH (09:00)
[2021-05-13] MEDS: LISINOPRIL 5 MG TABLET. PO SCH (09:00)
[2021-05-13] MEDS: METOPROLOL TART IMMED RELEASE 25 MG TABLET. PO SCH (09:00)
[2021-05-13] MEDS: ASPIRIN ENTERIC COATED 81 MG TABLET.DR. PO SCH (09:04)
[2021-05-13] MEDS: ENOXAPARIN 40 MG/0.4 ML SYRINGE. SQ SCH (09:05)
[2021-05-13] MEDS: metFORMIN 850 MG TABLET PO SCH (09:05)
[2021-05-13] MEDS: PROCHLORPERAZINE 10 MG/2 ML VIAL. IV PRN (09:05)
[2021-05-13] MEDS: INSULIN LISPRO 300 UNITS/3 ML VIAL. SQ SCH ×2 (09:15→12:00)
[2021-05-13 10:56] VITALS: BP 167/98
[2021-05-13 10:57] VITALS: BP_SYST 169; BP_SYST 173; BP_DIAS 112; BP_DIAS 115
--- NOTE | 2021-05-13 12:28 | PDOC3 ---
Discharge Summary Visit Information Date of Admission: May 09, 2021 Date of Discharge: May 13, 2021 Admitting Diagnosis: Vertigo Final Diagnosis Problems Medical Problems: (1) History of CVA (cerebrovascular accident) Status: Acute (2) Nausea & vomiting Status: Acute (3) Non-compliance Status: Acute (4) Uncontrolled hypertension Status: Acute (5) Vertigo Status: Acute Brief Hospital Course Allergies Allergies Coded Allergies Type Severity Reaction Last Updated Verified No Known Drug Allergies 06/14/17 No Vital Signs Vital Signs Date Time Temp Pulse Resp B/P (MAP) Pulse Ox O2 Delivery O2 Flow Rate FiO2 05/13/21 10:57 80 173/112 (132) 05/13/21 10:56 98.5 18 98 Room Air 98.5 Lab Results Laboratory Tests Test 05/11/21 17:20 05/11/21 19:42 05/12/21 07:54 05/12/21 11:51 Glucose (Fingerstick) 123 mg/dL (70-99) 186 mg/dL (70-99) 157 mg/dL (70-99) 176 mg/dL (70-99) Test 05/12/21 16:24 05/12/21 20:16 05/13/21 07:55 05/13/21 11:55 Glucose (Fingerstick) 168 mg/dL (70-99) 163 mg/dL (70-99) 176 mg/dL (70-99) 113 mg/dL (70-99) Laboratory Tests Test 05/12/21 16:24 05/12/21 20:16 05/13/21 07:55 05/13/21 11:55 Glucose (Fingerstick) 168 mg/dL (70-99) 163 mg/dL (70-99) 176 mg/dL (70-99) 113 mg/dL (70-99) Brief Hospital Course 51 year old female who [place] of [place]. She describes vertigo symptoms. She reports that she has experienced the same symptoms previously. She reports that she was feeling fine and then she had abrupt onset of dizziness while sitting playing slot machines. She denies fall or head injury or loss of consciousness. She denies numbness tingling or focal motor weakness. She denies chest pain or dyspnea. She denies abdominal pain. She reports mild nausea, without vomiting. She is an extremely poor historian and does not seem to be completely willing to participate in her care or provide more detailed history. She admits to using methamphetamine yesterday. She has a history of recently diagnosed type 2 diabetes as well as hypertension. She admits that she has not taken any of her prescribed medications "in a while." 05/09: Reports ongoing dizziness but really would not say much else. Home meds resumed today. PT OT. Evaluated by neurology today as well recommending MRI brain. 05/10: Does have some ongoing dizziness which she says. PT OT essentially cleared patient for home discharge with outpatient follow-up. However patient still needs MRI. 05/11: Patient evaluated examined at bedside. MRI performed yesterday today pretty normal. Patient does endorse ongoing dizziness which I do think is related to her drug use however a methamphetamine should be out of her system by now. Will order echo to check for further work-up. She does maybe have mild fluid overload on exam. 05/12: Systolic blood pressure 207 today. Dizziness minimally improved with repositioning exercises per PT. Getting echo currently. No CP or SOB. Increased amlodipine 05/13/2021 echo results with no acute abnormalities. BP a little low this morning. Dizziness improved but still feels like she is listing a little to the left when getting up to go to the bathroom. She found the walker extremely helpful. She is tearful about her social situation as her son who is 30 years old and has schizophrenia lives with her in a shed behind a person's home notes that she had is infested with rats and does not have water or power availability. [place]. She notes she does have a daughter who has a vehicle in stable housing but they have not been in good touch. Discussed with neurology she is improved and stable for discharge. Consults: Neurology consulted Echo: The left ventricular systolic function is normal and the ejection fraction is within normal range. EF 55% There is normal LV segmental wall motion. Technically difficult study. Problem list: Acute toxic and metabolic encephalopathy Mild Hypokalemia Dizziness - Peripheral vertigo. Left vestibular neuronitis, also consider positional vertigo, no longer has nystagmus Subacute to chronic thalamic infarct - Incidental right parasagittal frontal lobe lacunar infarct, no clinical correlation. Inability to ambulate - improved with PT and walker assistance Debilitation Methamphetamine abuse Transaminitis Hypertensive encephalopathy - improved back on meds Substance abuse, hypertension, diabetes, poor social situation, homeless Plan Aspirin Statin started Meclizine PRN, not to be used more than a week or 2 at a time Rehabilitation modalities blood pressure monitoring outpatient Walker at home Discharge Information Condition at Discharge: Improved Follow Up: Weeks Disposition/Orders: D/C to Home Scheduled Amlodipine Besylate (Amlodipine Besylate) 10 Mg Tablet, 10 MG PO DAILY for HTN, #30 Ref 5 Prescribed by: CR GARRETT MD on 05/13/21719 Atorvastatin Calcium (Atorvastatin Calcium) 20 Mg Tablet, 20 MG PO QHS for HLD for 30 Days, #30 Ref 5 Prescribed by: CR GARRETT MD on 05/13/21719 Lisinopril (Lisinopril) 5 Mg Tablet, 1 TAB PO DAILY for blood pressure for 30 Days, #30 Ref 5 Prescribed by: CR GARRETT MD on 05/13/21719 Metformin Hcl (Glucophage) 850 Mg Tablet, 850 MG PO BIDWMEALS for diabetes, #60 Ref 1 Prescribed by: DANAE MOODY on 09/18/201041 Last Action: Continued on 05/09/211409 by CR GARCIA MD Metoprolol Tartrate (Metoprolol Tartrate) 25 Mg Tablet, 25 MG PO BID for high blood pressure for 30 Days, #60 Ref 5 Prescribed by: CR GARRETT MD on 05/13/21719 Scheduled PRN Meclizine Hcl (Meclizine Hcl) 12.5 Mg Tablet, 12.5 MG PO PRN Q6HRS PRN for DIZZINESS for 5 Days, #10 Prescribed by: CR GARRETT MD on 05/13/21719 Discontinued Medications Amlodipine Besylate (Amlodipine Besylate) 5 Mg Tablet, 5 MG PO DAILY for high blood pressure, #30 Ref 1 Prescribed by: DANAE MOODY on 09/18/201041 Last Action: Continued on 05/09/211409 by CR GARCIA MD Butalb/Acetaminophen/Caffeine (Mqmfld-Qikkxsfa-Hlmv 50-325-40) 1 Each Tablet, 1 TAB PO PRN Q6HRS PRN for MIGRAINE HEADACHE, #30 Prescribed by: DANAE MOODY on 09/19/20 1033 Last Action: HELD on 05/09/211409 by CR GARCIA MD Doxycycline Hyclate (Doxycycline Hyclate) 100 Mg Tablet, 1 TAB PO BID for skin lesions, #14 Prescribed by: DANAE MOODY on 09/18/20 1042 Last Action: HELD on 05/09/211409 by CR GARCIA MD Info (No Known Medications Prior To Admisstion) Each, 1 EACH unk for unknown, (Reported) Entered as Reported by: JOHNNY MARTINES on 09/15/201938 Last Action: HELD on 05/09/211409 by CR GARCIA MD Justicifation of Admission Dx: Justifications for Admission: Justification of Admission Dx: No CR GARRETT MD May 13, 2021 12:28
--- NOTE | 2021-05-13 14:01 | NUR ---
pt is to be discharged home with self care, there are 3 scripts sent to her pharm. pt paid for a walker ($20) so that she could take it with her. Ryley Winn RN
[2021-05-13 15:00] VITALS: BP 115/67
--- NOTE | 2021-05-13 18:15 | NUR ---
pt was picked up at the main entrance at 1700 by Deborah and taken to her ex-husbands house in [facility]. Ryley Winn RN
== END 2021-05-13 17:00 | disposition home or self-care (01) | DRG 149 ==
LOC: ER 13:21 → 5 NORTH 16:16 → OBSVTOIN 05-09 13:40
PROVIDERS: ADMIT Internal Medicine; ATTEND Internal Medicine
DX: H81.22 Vestibular neuronitis, left ear (principal); G92.8 Other toxic encephalopathy; I67.4 Hypertensive encephalopathy; J98.11 Atelectasis; E11.9 Type 2 diabetes mellitus without complications; E87.6 Hypokalemia; F12.90 Cannabis use, unspecified, uncomplicated; F15.10 Other stimulant abuse, uncomplicated; F17.200 Nicotine dependence, unspecified, uncomplicated; F42.9 Obsessive-compulsive disorder, unspecified; H81.10 Benign paroxysmal vertigo, unspecified ear; H81.399 Other peripheral vertigo, unspecified ear; I10 Essential (primary) hypertension; Z59.00 Homelessness unspecified; Z86.61 Personal history of infections of the central nervous system; Z86.73 Personal history of transient ischemic attack (TIA), and cerebral infarction without residual deficits; Z91.19 Patient's noncompliance with other medical treatment and regimen; F32.A Depression, unspecified; F41.9 Anxiety disorder, unspecified; F90.9 Attention-deficit hyperactivity disorder, unspecified type; R74.01 Elevation of levels of liver transaminase levels
CPT/HCPCS: 36415; 70450; 70551; 71045; 80048; 80053; 80061; 80307; 82550; 82962; 83735; 84100; 84484; 85025; 93005; 93306; 96361; 96374; 96375; G0378; G0379; G0480; J0780; J1200; J1650; J1815; J1885; J2405; J3490; J7030; 97110-GP; 97530-GP; 99285-25; J8597